=== PATIENT | female | born 1990 | race Caucasian/White ===

== ENCOUNTER 2024-06-10 20:14 | Emergency (ER) | payer BC, SELFPAY ==
[2024-06-10] VITALS (20 sets, daily range): BP systolic 122–150; BP diastolic 76–117; PULSE 100–142; RESP 12–29; TEMP 36.6; O2SAT 96–100
--- NOTE | ~2024-06-10 | CT_ITS ---
CTA chest PE protocol Ordering provider: Rohan Kidd MD History: 33 years Female with . Pleuritic chest pain, recent trauma, eval pe . Comparison: None. Technique: CT angiogram chest was performed following timed intravenous injection of contrast. Thin s lice axial images and reformatted coronal images were obtained. Three dimensional reformatted images of the chest were also obtained using a [employer] workstation. . Automated exposure control and iterati ve reconstruction technique were employed. The dose-length product was 180.72 mGy-cm. Findings: PULMONARY ARTERIES: No pulmonary embolus. VISUALIZED THORACIC INLET: Normal. MEDIASTINUM: Aorta/coronary arteries: The thoracic aorta is normal. Heart/other: The heart is not enlarged. Lymph nodes: No mediastinal or hilar adenopathy. LUNGS: No pulmonary nodules or masses. No infiltrates or effusions. No pneumothorax. Mild dependent atelecta tic changes. VISUALIZED UPPER ABDOMEN: Slightly prominent left adrenal gland medial limb. Otherwise, the visualize d upper abdomen is normal. MUSCULOSKELETAL: Soft tissues: The superficial soft tissues are normal. Bones: Normal spine. IMPRESSION: 1. No pulmonary embolism. 2. No acute cardiopulmonary pathology. Reviewed, dictated and finalized at location A.
--- NOTE | ~2024-06-10 | XR_ITS ---
XR chest 2V Ordering provider: Rohan Kidd History: 33 years Female with . TACHYCARDIA . Comparison: None. FINDINGS: MEDIASTINUM: The cardiac silhouette is not enlarged. LUNGS: No infiltrates, effusions or pneumothorax. OTHER: No free air under the diaphragm. IMPRESSION: No acute cardiopulmonary pathology. Reviewed, dictated and finalized at location A.
--- NOTE | 2024-06-10 20:22 | ECG_ITS ---
Test Date: 2024-06-10 20:26:02 Measurements Intervals [place] Rate: 122 P: 60 [place]: 124 QRS: 45 QRSD: 86 T: -23 QT: 288 QTc: 411 Interpretive Statements SINUS TACHYCARDIA NONSPECIFIC ST & T-WAVE ABNORMALITY- ANTEROLAT/INF LEADS ABNORMAL ECG No previous ECG available for comparison Electronically Signed On 06-11-2024 07:26:06 CDT by Bharat Mckay D.O.
[2024-06-10 20:33] LABS: Basophils Absolute Auto 0.1 K/mm3 (0.0-0.1); Basophils Percent Auto 0.9 % (0.2-1.2); Eosinophils Absolute Auto 0.1 K/mm3 (0-0.3); Eosinophils Percent Auto 1.2 % (0-4.4); Hemoglobin 14.8 g/dL (12.0-15.0); Immature Granulocyte Absolute 0.05 K/mm3 (0.00-0.031); Immature Granulocyte Percent A 0.7 % (0-0.5); Lymphocytes Absolute Auto 2.93 K/mm3 (0.9-3.2); Lymphocytes Percent Auto 42.6 % (18.3-44.2); Mean Corpuscular HGB Conc 34.4 g/dl (32-36); Mean Corpuscular Hemoglobin 32.7 pg (26-34); Mean Corpuscular Volume 95.1 fl (80-100); Mean Platelet Volume 9.5 fl (7.4-10.4); Monocytes Absolute Auto 0.6 K/mm3 (0.1-0.6); Monocytes Percent Auto 8.9 % (2.6-8.5); Neutrophils Absolute Auto 3.2 K/mm3 (1.3-6.7); Neutrophils Percent Auto 45.7 % (45.5-73.1); Platelet Count Result 267 k/mm3 (150-375); Red Blood Count 4.52 M/mm3 (4.2-5.4); Red Cell Distribution Width 12.9 % (11.5-14.5); White Blood Count 6.9 K/mm3 (4.5-10.0)
[2024-06-10] MEDS: ASPIRIN 81 MG CHEWABLE TABLET 324 MG PO (20:41)
[2024-06-10 20:44] LABS: Alanine Aminotransferase 26 U/L (6-35); Albumin Level 4.8 g/dL (3.5-5.1); Alkaline Phosphatase 59 U/L (38-126); Anion Gap 15 mmol/L (4-12); Aspartate Amino Transferase 55 U/L (14-36); Bilirubin,Total 0.5 mg/dL (0.2-1.3); Blood Urea Nitrogen 17 mg/dL (7-17); Calcium 8.3 mg/dL (8.4-10.2); Carbon Dioxide 21 mmol/L (22-30); Chloride 109 mmol/L (98-107); Estimated Glomerular Filt Rate > 60; Glucose 106 mg/dL (65-110); Lipase 102 U/L (23-300); Potassium 3.9 mmol/L (3.4-5.0); Sodium 145 mmol/L (137-145)
[2024-06-10 20:50] LABS: INR 1.1; Partial Thromboplastin Time 27.9 Seconds (22.3-36.8); Prothrombin Time 14.5 Seconds (11.1-14.7)
[2024-06-10 20:55] LABS: Troponin I < 0.012 ng/mL (0.000-0.034)
[2024-06-10] MEDS: MORPHINE SULFATE (*CRX) 4 MG/ML INJ IV PUSH (21:10)
--- OUTSIDE RECORDS SUMMARY | 2024-06-10 21:50 | XMS_ITS | Clinical Summary ---
Author Organization [facility] Address [address] [place] [address] Care Team Providers Care Travel Pta Name Role Phone Angel Moyer MD Primary Care Provider [phone] Allergies Active Allergy Reactions Criticality Noted Date Comments Amoxicillin-Pot Clavulanate Rash 06/17/2016 Sulfamethoxazole-Trimet hoprim Swelling High 12/03/2021 Clindamycin 02/21/2015 Erythromycin 02/21/2015 Bupropion Hcl Other (See Comments) 12/03/2021 Unclear syncope vs seizure- either way reports not to take Medications alprazolam (XANAX) 0.5 MG tablet Take 1 mg by mouth as needed for anxiety. Active dextroamphetamin e-amphetamine 30 mg tab Take 30 mg by mouth as needed. Active gabapentin (NEURONTIN) 100 MG capsule Take 100 mg by mouth as needed. Active norethindrone-et hinyl estradiol (FEMHRT 03/05) 1-5 mg-mcg tab Take by mouth daily. 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 Anxiety 02/04/2019 Loss of consciousness 02/21/2015 Resolved Problems Problem Noted Date Diagnosed Date Resolved Date Seizure 02/22/2015 12/03/2021 Immunizations Name Administration Dates Next Due Tdap (ADACEL/BOOSTRIX) 02/04/2019,12/15/2011 Family History Medical History Relation Comments Prostate cancer Father Arthritis Mother Thyroid disease Mother Relation Status Comments Father Mother Social History Tobacco Use Types Packs/Day Years Used Date Smoking Tobacco: Never Smokeless Tobacco: Never Tobacco Cessation:Counseling Given: Not Answered Alcohol Use Standard Drinks/Week Comments Yes 7 (1 standard drink = 0.6 oz pur e alcohol) 7 white claws a week Comments No Sex and Gender Information Value Date Recorded Sex Assigned at Not on file 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 Gender Identity Not on file Sexual Orientation Not on file Last Filed Vital Signs Vital Sign Reading Time Taken Comments Blood Pressure 110/82 12/03/2021 9:32 AM CDT Pulse 90 12/03/2021 9:32 AM CDT Temperature 36.9 C (98.5 F) 12/03/2021 9:32 AM CDT Respiratory Rate 18 02/23/2015 11: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 Oxygen Saturation 97% 12/03/2021 9:32 AM CDT Inhaled Oxygen Concentration - - Weight 65.3 kg (144 lb) 12/03/2021 9:32 AM CDT Height 151.1 cm (4' 11.5 ) 12/03/2021 9:32 AM CD T Body Mass Index 28.6 12/03/2021 9:32 AM CDT Plan of Treatment Health Maintenance Due Date Last Done Comments Annual Preventative Exam wit h Gyne 2004 Hepatitis C Screening 2006 Hepatitis B Vaccines (1 of 3 - 19+ 3-dose series) 09/24/2007 Pap Smear 03/01/2021 03/01/2018 Annual Wellness Exam with PC P (Rolling Yr) 12/03/2022 12/03/2021 Influenza Vaccine (#1) 2023 COVID-19 Vaccine (3 - 2023-2 5 season) 2023 07/29/2020, 07/05/2020 DTaP,Tdap,and Td Vaccines (3 - Td or Tdap) 02/04/2029 02/04/2019, 12/15/2011 Hepatitis A Vaccines Aged Out No long er eligible based on patient's age to complete this topic Meningococcal Vaccine Aged Out No ty mario eligible based on patient's age to complete this topic Pneumococcal Vaccine: Peds (0-5 Yrs) or At-Risk Patients (6-49 Yrs) Aged Out No longer eligible b ased on patient's age to complete this topic Care Teams Travel Pta Relationship Specialty Start Date End Date Angel Moyer MD PCP - General 12/11/14
--- OUTSIDE RECORDS SUMMARY | 2024-06-10 21:51 | XMS_ITS ---
Author Organization [facility] Address [address] [place], [place] [id number] Care Team Providers Care Shank Taper Name Role Phone Eder MATT, Dr Floyd Primary Care Provider Un available Perry Suárez Unavailable [phone] REASON FOR VISIT lump on her right lower leg Encounters Encounter Location Date Provider Diagnosis [facility] [address] [address] [place] [facility] [place], [place] [address] [id number] 12/20/2023 Perry Suárez Plan Of Treatment No Information Progress Notes * Nia RAEB:[birth year] (33 yo F)Acc No.[id number]:12/20/2023 Progress Notes Patient: Barbi MATA Provider: Hina Suárez MD :1990 A ge:33 Y S ex:Female Date:12/20/2023 Address:[address] [place] [address], [address] Pcp:Dr Everett Gaines MD Subjective: * Chief Complaints: * 1 . Lump on her right lower leg. * Medical History: Objective: * Vitals: Assessment: Plan: * Treatment: * * Electronic signature of Jarod Suárez MD on 06/10/2024 at 09:50 PM CDT Sign off status: Pending * Provider: Hina Suárez MD Date: 1 Generated for Rashmi charles/Faxing/eTransmitting on: 0 06/10/2024 09:50 PM CDT
--- OUTSIDE RECORDS SUMMARY | 2024-06-10 21:51 | XMS_ITS | Patient Health Record ---
Author Organization [facility] Address [address] [place], [place] [id number] Care Team Providers Care Smoke Chaser Name Role Phone Eder MATT, Dr Floyd Primary Care Provider Un available Perry Suárez Unavailable [phone] Results Component Value Reference Range Notes Pathology Report Reviewed date:01/26/2024 04:36:14 PM Interpretation: Performing Lab:[facility], [address] [place] [id number], Phone - [phone], Director - Erasmo Notes/Report: Clinical Information:[id number] . Material submitted: . limb - RIGHT LOWER LIMB MASS. Modifiers: right, lower . Clinician provided ICD-10: R22.41 . Clinical history: . PATHOLOGY OF MASS OF RIGHT LOWER LIMB. . Diagnosis: ENCAPSULED FAT NECROSIS. BXS 01/07/2024 1043 Local . Electronically signed: . Luis Cortes MD, Dermatopathologist . Gross description: . 1 Container, formalin-filled, labeled with patient identification. RIGHT LOWER LIMB MASS: RECEIVED IN FORMALIN IS 1 PIECE OF ADIPOSE TISSUE MEASURING 1.2 X 0.8 X 1.1 CM. PARTIALLY CONTAINED IN A WHITE SAC. THE CUT SURFACE IS JIMENEZ-YELLOW SMOOTH AND HOMOGENOUSTHERE ARE NO LESIONS GROSSLY VISIBLE . IT IS SUBMITTED ENTIRELY IN CASSETTE A1.THERE ARE 4 PIECES. ORT/ORT 01/05/2024 1112 Local . Pathologist provided ICD-10: L98.8 . CPT . 303793 Reason For Referral No Information Social History Tobacco Use: Social History Observation Description Date Details (start date - stop date) Never Smoker NA - NA Tobacco Control (Standard) Question Answer Notes Tobacco use: Nonsmoker Problems Problem Type SNOMED Code ICD Code Onset Dates Problem Status W/U Status Risk Notes Problem Localized swelling, mass and lump, right lower limb (R22.41) Active confirmed Vital Signs Heart Rate 78 /min 12/21/2023 Temperature 97.3 degrees Fahrenheit 12/21/2023 Height-cm 149.86 cm 12/21/2023 Oximetry 98 % 12/21/2023 Blood pressure diastolic 77 mm Hg 12/21/2023 Weight-kg 58.97 kg 12/21/2023 Height 4'11 in 12/21/2023 Blood pressure systolic 128 mm Hg 12/21/2023 Weight 130 lbs 12/21/2023 BMI 26.25 kg/m2 12/21/2023 Encounters Encounter Location Date Provider Diagnosis [facility] [address], [address] [place], [place] [id number] 12/21/2023 Perry Suárez Localized swelling, mass and lump, right lower limb R22.41 [facility] [address] [place], [place] [id number] 01/04/2024 Perry Suárez Localized swelling, mass and lump, right lower limb R22.41 Assessments Encounter Date Diagnosis (ICD Code) Assessment Notes Treatment Notes Treatment Clinical Notes Section Notes 12/21/2023 Localized swelling, mass and lump, right lower limb (ICD-10 - R22.41) we will plan excisional biopsy under local anesthesia in the office. Patient understands and agrees. Clinically not very concerning on exam 01/04/2024 Localized swelling, mass and lump, right lower limb (ICD-10 - R22.41) Plan Of Treatment No Information Insurance Providers Payer Name Payer Address Payer Phone Subscriber Number Group Number Insured Name Patient Relationship to Insured Coverage Start Date Coverage End Date [facility] [address] [place] [address] [id number] Barbi Rae Self - patient is the insured
--- OUTSIDE RECORDS SUMMARY | 2024-06-10 21:51 | XMS_ITS ---
Author Organization [facility] Address [address] [place], [place] [phone] Care Team Providers Care Sed Middle School Teacher Name Role Phone Eder MATT, Dr Floyd Primary Care Provider Un available Perry Suárez Unavailable [phone] REASON FOR VISIT Lump on lower right thigh Social History Tobacco Use: Social History Observation Description Date Details (start date - stop date) Never Smoker NA - NA Tobacco Control (Standard) Question Answer Notes Tobacco use: Nonsmoker Problems Problem Type SNOMED Code ICD Code Onset Dates Problem Status W/U Status Risk Notes Problem Localized swelling, mass and lump, right lower limb (R22.41) Active confirmed Vital Signs Temperature 97.3 degrees Fahrenheit 12/21/19 24 Blood pressure systolic 128 mm Hg 12/21/19 24 Blood pressure diastolic 77 mm Hg 024 Heart Rate 78 /min 12/21/2023 Height 4'11 in 12/21/2023 Weight 130 lbs 12/21/2023 BMI 26.25 kg/m2 12/21/2023 Oximetry 98 % 12/21/2023 Height-cm 149.86 cm 12/21/2023 Weight-kg 58.97 kg 12/21/2023 Encounters Encounter Location Date Provider [facility] [address] [address], [address] [place], [place] [id number] 12/21/2023 Perry Suárez Localized swelling, mass and lump, right lower limb R22.41 Assessments Encounter Date Diagnosis (ICD Code) Assessment Notes Treatment Notes Treatment Clinical Notes Section Notes 12/21/2023 Localized swelling, mass and lump, right lower limb (ICD-10 - R22.41) we will plan excisional biopsy under local anesthesia in the office. Patient understands and agrees. Clinically not very concerning on exam Plan Of Treatment Treatment Notes Assessment Notes Localized swelling, mass and lump, right lower limb we will plan excisional biopsy under loc al anesthesia in the office. Patient understands and agrees. Progress Notes * Nery RAEaDOB:[birth year] (33 yo F)Acc No.[id number]:12/21/2023 Progress Notes Patient: Barbi MATA Provider: Hina Suárez MD :1990 A ge:33 Y S ex:Female Date:12/21/2023 Address:[address] [place] [address], [place] [address] Pcp:Dr Everett Gaines MD Subjective: * Chief Complaints: * L ump on lower right thigh * HPI: . : [age]-year-old female whose mother had non-Hodgkin's lymphoma and had developed a potential blood dyscrasia prompting a visit to a technical services consultant who then informed her and instructed her to monitor her body for any new lumps or bumps. She became greatly concerned when she noted a small lump on the outer aspect of her distal right thigh. It is nontender. She is uncertain of how long it has been there for. * ROS: E ye: Negative Ear/Nose/Mouth/Throat: Negative Respiratory: No shortness of breath or cough Cardiovascular: Negative Immunologic: Negative Hematology/Lymphatics: Negative Musculoskeletal: Negative Integumentary: Negative Genitourinary: Negative Neurologic: Negative Psychiatric: Negative Breast: Negative. * Medical History: * Surgical History: * Hospitalization/Major Diagno stic Procedure: * Social History: T obacco Use: T obacco Control (Standard) T obacco use: N onsmoker. * Medications: Objective: * Vitals: T emp:97.3, HR:78, BP:128/77, Ht:4'11 , Wt:130, BMI:26.25, Oxygen sat %:98, Ht-cm: 149.86, Wt-k.97. * Examination: G eneral Examination: GENERAL APPEARANCE: i n no acute distress, well developed, well nourished. NECK/THYROID: n case supple, full range of motion, no cervical lymphadenopathy. LUNGS: c lear to auscultation bilaterally. HEART: n o murmurs, regular rate and rhythm, S1, S2 normal.? ABDOMEN s oft, nontender, nondistended. SKIN: n o suspicious lesions, warm and dry. EXTREMITIES: n o clubbing, cyanosis, or edema; S mall sub 1 cm mobile and nontender soft tissue mass in the distal aspect of her lateral right thigh. It is not in an area typical for a lymph node.. HEAD: n ormocephalic, atraumatic. ORAL CAVITY: m ucosa moist. THROAT: c lear. NEUROLOGIC: n onfocal, motor strength normal upper and lower extremities, sensory exam intact. EYES: p upils equal, round, reactive to light and accommodation. EARS: n ormal. Assessment: * Assessment: 1. L ocalized swelling, mass and lump, right lower limb - R22.41 (Primary) Clinically not very concerning on exam Plan: * Treatment: * Procedure Codes: * Preventive Medicine: Counseling: A dvanced Care Planning D ate of last Advance Care Plannin . * * Sign off status: Completed true * Provider: Hina Suárez MD Date: Generated for Rashmi charles/Adina/Jesiitting on: 0 06/10/2024 09:50 PM CDT History and Physical Notes * HPI (History of Present Illness) Category Sub-Category Detail Notes Category Not es . 33-year-old fem natanael whose mother had non-Hodgkin's lymphoma and had developed a potential blood dyscrasia prompting a visit to a technical services consultant who then informed her and instructed her to monitor her body for any new lumps or bumps. She became greatly concerned when she noted a small lump on the outer aspect of her distal right thigh. It is nontender. She is uncertain of how long it has been there for. Examination Category Sub-Category Detail Notes Category Not es General Examination GENERAL APPEARANCE: in no ac makah distress, well developed, well nourished HEAD: normocephalic, atrau matic EYES: pupils equal, round, reactive to light and accommodation EARS: normal THROAT: clear NECK/THYROID: neck supple, full ra nge of motion, no cervical lymphadenopathy HEART: no murmurs, regular rate and rhythm, S1, S2 normal LUNGS: clear to auscultatio n bilaterally ABDOMEN soft, nontender, non distended NEUROLOGIC: nonfocal, motor stre ngth normal upper and lower extremities, sensory exam intact SKIN: no suspicious lesion s, warm and dry EXTREMITIES: no clubbing, cyanosi s, or edema; Small sub 1 cm mobile and nontender soft tissue mass in the distal aspect of her lateral right thigh. It is not in an area typical for a lymph node. ORAL CAVITY: mucosa moist
--- OUTSIDE RECORDS SUMMARY | 2024-06-10 21:51 | XMS_ITS | Encounter Summary ---
Author Organization [facility] Address [address] [place] [address] Care Team Providers Care Vegetable Grader Name Role Phone Unavailable Primary Care Provider Unavailabl e Source Comments In the event that this is information that is protected by federal Confidentiality of Substance User Disorder Patient Records, 42 CFR Part 2 prohibits the unauthorized disclosure of these records.[facility] Encounter Details Date Type Department Care Team (Late st Contact Info) Description 08/14/2013 Orders Only [place] Pathology [address] [place] [address] Angel Moyer MD [address] [facility] [address] [place], [place] [id number] Social History Tobacco Use Types Packs/Day Years Used Date Smoking Tobacco: Never Assessed Comments Unknown Sex and Gender Information Value Date Recorded Sex Assigned at Not on file Legal Sex Female 6:50 AM CDT Gender Identity Not on file Sexual Orientation Not on file documented as of this encounter Plan of Treatment Not on file documented as of this encounter Visit Diagnoses Not on filedocumented in this encounter
--- OUTSIDE RECORDS SUMMARY | 2024-06-10 21:51 | XMS_ITS | Clinical Summary ---
Author Organization [facility] Address [address] [place] [address] Care Team Providers Care Senior Mechanical Engineer Name Role Phone Unavailable Primary Care Provider Unavailabl e Source Comments In the event that this is information that is protected by federal Confidentiality of Substance UseDisorder Patient Records, 42 CFR Part 2 prohibits the unauthorized disclosure of these records.[facility] Social History Tobacco Use Types Packs/Day Years Used Date Smoking Tobacco: Never Assessed Comments Unknown Sex and Gender Information Value Date Recorded Sex Assigned at Not on file Legal Sex Female 6:50 AM CDT Gender Identity Not on file Sexual Orientation Not on file Plan of Treatment Health Maintenance Due Date Last Done Comments HIV SCREENING 09/24/2003 HEPATITIS C SCREENING 2006 LIPID TESTING 2006 DTAP/TDAP/TD (1 - Tdap) 09/24/2007 CERVICAL CANCER SCREENING 2009 Diabetes Screening 09/24/2023 COVID-19 VACCINE ( - 2023-2 5 season) 2023 INFLUENZA (Season Ended) 2024 MENINGOCOCCAL B (MENB) Aged Out No lo nger eligible based on patient's age to complete this topic Pneumococcal 0-49 Aged Out No longer eligible based on patient's age to complete this topic
--- OUTSIDE RECORDS SUMMARY | 2024-06-10 21:51 | XMS_ITS | Clinical Summary ---
Author Organization [facility] Address [address] [place] [address] Care Team Providers Care Sap Fico Architect Name Role Phone Physician, No Pcp MD Primary Care Provider Unava ilable Allergies Active Allergy Reactions Criticality Noted Date Comments Amoxicillin-Pot Clavulanate Rash 06/18/19 17 Bactrim Ds Swelling Medium 09/02/2022 Bupropion Other 12/03/2021 Unclear syncope vs seizure- either way reports not to take Clindamycin Rash 02/21/2015 Sulfamethoxazole W/Trimethoprim Swelling High 04/27/2020 Medications Amphetamine-Dex troamphetamine (ADDERAL) 30 MG PO Tab Take 1 Tab by mouth two times per day. 1 Active ALPRAZolam 1 MG PO Tab Take 1 Tab by mouth twice daily as needed. 1 Active Folic acid (FOLATE) 1 MG PO TabIndications: ETOH abuse Take 1 Tab by mouth once per day. 30 Tab 5 Active levETIRAcetam 500 MG PO TabIndications: Seizure (HCC) Take 1 Tab by mouth two times per day. 180 Tab 5 07/16/19 26 Active Multivitamin (TAB-A-OLIMPIA) PO TabIndications: ETOH abuse Take 1 Tab by mouth once per day. 30 Tab 5 Active NaCl 0.65% (OCEAN) 0.65 % NA SolutionIndicat ions:Nasal Mucosa Irritation Place 1 Bertrand in the nose three times per day as needed for For Nasal Congestion. Indications: Irritation of the Inside of the Nose 1 Each 5 Active Thiamine (VITAMIN B-1) 100 MG PO TabIndications: ETOH abuse Take 1 Tab by mouth once per day. 30 Tab 5 Active Gabapentin (NEURONTIN) 600 MG PO Tab Take 1 Tab by mouth two times per day with meals. 4 Active ClonAZEPAM, Klonopin, 2 MG PO Tab TAKE 1 TABLET BY MOUTH EVERY NIGHT AT BEDTIME. CONTINUE ALPRAZOLAM 5 Active Chlorhexidine (PERIDEX) 0.12 % MT Solution 5 Active ETHIN ESTRADIOL-NORET HIND LEFTY 1-5 MG-MCG PO Tab Take by mouth. 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 Loss of consciousness 02/21/2015 Encounters Date Type Department Care Team Description 05/12/2024 9:00 AM CDT Office Visit Neurology [address] [phone] Lucie Choi MD Provoked seizure (HCC) (Primary Dx) Discharge Disposition: Home or Self Care 05/12/2024 [facility] d Advice Neurology [facility] [place] [address] [place] [address] [address] [place] [address] Lucie Choi MD Letter 04/18/2024 10:46 PM ASSISTANT MANAGER BILINGUAL - 04/21/2024 12:09 PM ASSISTANT MANAGER BILINGUAL Hospital Encounter [facility] [address] [address] Aníbal Hobbs MD Alanis, MD Alva Santiago Gaurangi, Seizure (HCC) (Primary Dx); ETOH abuse; Attention deficit hyperactivity disorder (ADHD), unspecified ADHD type; Hypokalemia; Non-seasonal allergic rhinitis, unspecified trigger; Closed fracture of nasal bone, initial encounter; Hepatic steatosis Discharge Disposition: Home or Self Care from Last 3 Months Social History Tobacco Use Types Packs/Day Years Used Date Smoking Tobacco: Never Smokeless Tobacco: Never Alcohol Use Standard Drinks/Week Comments Yes 5 (1 standard drink = 0.6 oz pur e alcohol) 5 shots 3-4 times per week NCSS - Food Insecurity Answer Date Charles rded Within the past 12 months, d id you worry that your food would run out before you got money to buy more? No 04/19/2024 Within the past 12 months, d id the food you bought just not last and you didn t have money to get more? No 04/19/2024 NCSS - Housing/Utilities Answer Date Re corded Do you have housing? Yes 04/19/2024 Are you worried about losing your housing? Yes 04/19/2024 Within the past 12 months, h ave you or your family members you live with been unable to get utilities (heat, electricity) when it was really needed? No 04/19/2024 NCSS - Transportation Answer Date Recor ded Within the past 12 months, h as lack of transportation kept you from medical appointments, getting your medicines, non-medical meetings or appointments, work, or from getting things that you need? No 04/19/2024 NCSS - Interpersonal Safety Answer Date Recorded Do you feel physically and e motionally safe where you currently live? Yes 04/19/2024 Within the past 12 months, h ave you been hit, slapped, kicked or otherwise physically hurt by someone? No 04/19/2024 Within the past 12 months, h ave you been humiliated or emotionally abused in other ways by your partner or ex-partner? No 04/19/2024 NCSS - Utilities Answer Date Recorded Within the past 12 months, h ave you or your family members you live with been unable to get utilities (heat, electricity) when it was really needed? No 04/19/2024 Interpersonal Safety Answer Date Record ed Do you feel physically or em otionally unsafe where you currently live? No 04/19/2024 Is there someone in your lif e who physically hurts, threatens, humiliates, or scares you? No 04/19/2024 Is anyone misusing your sergey y, food, housing, and/or not allowing you to get medical treatment? No 04/19/2024 Comments Unknown Sex and Gender Information Value Date Recorded Sex Assigned at Not on file Legal Sex Female 9:25 AM ASSISTANT MANAGER BILINGUAL Gender Identity Not on file Sexual Orientation Not on file Last Filed Vital Signs Vital Sign Reading Time Taken Comments Blood Pressure 104/77 05/12/2024 8:59 AM CDT Pulse 73 05/12/2024 8:59 AM CDT Temperature 36.8 C (98.2 F) 05/12/2024 8:59 AM CDT Respiratory Rate 17 05/12/2024 8:59 AM CDT Oxygen Saturation 99% 05/12/2024 8:59 AM CDT Inhaled Oxygen Concentration - - Weight 60.8 kg (134 lb) 05/12/2024 8:59 AM CDT Height 149.9 cm (4' 11 ) 05/12/2024 8:59 AM CDT Body Mass Index 27.06 05/12/2024 8:59 AM CDT Plan of Treatment Health Maintenance Due Date Last Done Comments Physical 2006 PAP SMEAR 2009 CHOLESTEROL SCREENING 09/24/2023 HPV VACCINE (2 - 3-dose SCDM series) 10/07/2023 09/09/2023 COVID-19 Vaccine (3 - 2023- season) 2023 07/29/2020, 07/05/2020 FLU VACCINE (#1) 10/31/2023 DTaP/Tdap/Td Vaccines (4 - Td or Tdap) 04/24/2034 04/24/2024, 02/04/2019, 12/15/2011 Pneumococcal: Pediatric/ High Risk Adult 18-64 Aged Out No longer eligible based on patient's age to complete this topic Procedures Procedure Name Priority Date/Time Associated Diagnosis Comments ADD-ON TEST (SPECIMEN IN LAB) Routine Lab 04/21/2024 9:31 AM ASSISTANT MANAGER BILINGUAL ADD-ON TEST (SPECIMEN IN LAB) Routine Lab 04/21/2024 7:44 AM ASSISTANT MANAGER BILINGUAL HB PHOSPHORUS * Routine 04/21/2024 6:06 AM ASSISTANT MANAGER BILINGUAL HB MAGNESIUM * Routine 04/21/2024 6:06 AM ASSISTANT MANAGER BILINGUAL HB HEPATIC FUNCTION PANEL* Routine 04/21/2024 6:06 AM ASSISTANT MANAGER BILINGUAL HB CBC/PLATELET* (P) Routine 04/21/2024 6:06 AM ASSISTANT MANAGER BILINGUAL HB BASIC METABOLIC PANEL* (P) Routine 04/21/2024 6:06 AM ASSISTANT MANAGER BILINGUAL NSG NUTRITION ADMISSION SCREEN Routine 04/20/2024 3:50 PM ASSISTANT MANAGER BILINGUAL US ABDOMEN LTD (LIVER/GB/DUCT/SPLEEN /PANCREAS) Routine 04/20/2024 8:31 AM ASSISTANT MANAGER BILINGUAL HB PHOSPHORUS * Routine 04/20/2024 6:57 AM ASSISTANT MANAGER BILINGUAL HB MAGNESIUM * Routine 04/20/2024 6:57 AM ASSISTANT MANAGER BILINGUAL HB CBC/PLATELET* (P) Routine 04/20/2024 6:57 AM ASSISTANT MANAGER BILINGUAL HB BASIC METABOLIC PANEL* (P) Routine 04/20/2024 6:57 AM ASSISTANT MANAGER BILINGUAL EXTRA BORIC ACID TUBE Routine 04/19/2024 10:38 PM ASSISTANT MANAGER BILINGUAL HB UA AUTO W/MICROSCOPIC* Routine 04/19/2024 10:27 PM ASSISTANT MANAGER BILINGUAL URINALYSIS Routine 04/19/2024 10:27 PM ASSISTANT MANAGER BILINGUAL ORDER EEG Routine 04/19/2024 2:56 PM ASSISTANT MANAGER BILINGUAL ADD-ON TEST (SPECIMEN IN LAB) ER-STAT 04/19/2024 11:15 AM ASSISTANT MANAGER BILINGUAL EXTRA BLUE TUBE 1 STAT 04/19/2024 10: 33 AM ASSISTANT MANAGER BILINGUAL EXTRA SST TUBE 1 STAT 04/19/2024 10:3 3 AM ASSISTANT MANAGER BILINGUAL HB MAGNESIUM * STAT 04/19/2024 10:33 AM ASSISTANT MANAGER BILINGUAL HB CBC/PLATELET* (P) STAT 04/19/2024 10:33 AM ASSISTANT MANAGER BILINGUAL HB COMPREHENSIVE METABOLIC PANEL* STAT 04/19/2024 10:33 AM ASSISTANT MANAGER BILINGUAL MRI BRAIN W & W/O CONTRAST ER-STAT 04/19/2024 9:01 AM ASSISTANT MANAGER BILINGUAL ADD-ON TEST (SPECIMEN IN LAB) ER-STAT 04/19/2024 5:37 AM ASSISTANT MANAGER BILINGUAL HB URINE DRUG ABUSE PNL 8 STAT 04/19/2024 2:50 AM ASSISTANT MANAGER BILINGUAL EXTRA OTHER/MISC SPECIMEN 2 STAT 04/19/2024 2:50 AM ASSISTANT MANAGER BILINGUAL EXTRA BORIC ACID TUBE STAT 04/19/2024 2:50 AM ASSISTANT MANAGER BILINGUAL EXTRA OTHER/MISC SPECIMEN 1 STAT 04/19/2024 2:50 [address] MAXILLOFACIAL W/O CONTRAST ER-STAT 04/19/2024 12:16 AM [address]ILINGUAL CT CERVICAL SPINE W/O CONTRAST ER-STAT 04/19/2024 12:16 AM ASSISTANT MANAGER BILINGUAL CT HEAD W/O CONTRAST ER-STAT 04/19/2024 12:16 AM ASSISTANT MANAGER BILINGUAL HB LACTIC ACID/LACTATE* STAT 04/19/2024 12:02 AM ASSISTANT MANAGER BILINGUAL ADD-ON TEST (SPECIMEN IN LAB) ER-STAT 04/18/2024 11:24 PM ASSISTANT MANAGER BILINGUAL HB ACETAMINOPHEN/TYLENOL ASSAY* STAT 04/18/2024 11:18 PM ASSISTANT MANAGER BILINGUAL HB SALICYLATE ASSAY* STAT 04/18/2024 11:18 PM ASSISTANT MANAGER BILINGUAL EXTRA SST TUBE 1 STAT 04/18/2024 11:1 8 PM ASSISTANT MANAGER BILINGUAL HB TROPONIN T STAT 04/18/2024 11:18 PM ASSISTANT MANAGER BILINGUAL HB BETA-HCG QUANT.* (P) STAT 04/18/2024 11:18 PM ASSISTANT MANAGER BILINGUAL HB PHOSPHORUS * STAT 04/18/2024 11:18 PM ASSISTANT MANAGER BILINGUAL HB MAGNESIUM * STAT 04/18/2024 11:18 PM ASSISTANT MANAGER BILINGUAL HB COMPREHENSIVE METABOLIC PANEL* STAT 04/18/2024 11:18 PM ASSISTANT MANAGER BILINGUAL ADD-ON TEST (SPECIMEN IN LAB) ER-STAT 04/18/2024 11:17 PM ASSISTANT MANAGER BILINGUAL EXTRA BLUE TUBE 1 STAT 04/18/2024 11: 17 PM ASSISTANT MANAGER BILINGUAL HB BLOOD SMEAR W/MAN DIFF WBC CT (P) STAT 04/18/2024 11:17 PM ASSISTANT MANAGER BILINGUAL HB SARS-COV-2 INFL A&B MULT AMP PRB TCHNQ STAT 04/18/2024 11:14 PM ASSISTANT MANAGER BILINGUAL HB BLOOD GAS,VENOUS* STAT 04/18/2024 11:11 PM ASSISTANT MANAGER BILINGUAL ORDER ROUTINE EKG Routine 04/18/2024 10: 52 PM ASSISTANT MANAGER BILINGUAL from Last 3 Months Results * (ABNORMAL) HEPATIC GROUP, BL (04/21/2024 6:06 AM ASSISTANT MANAGER BILINGUAL) TOTAL PROTEIN 5.4(L) 6.0 - 8.3 g/dL [facility] ALBUMIN 3.4(L) 3.5 - 5.2 g/dL [facility] BILIRUBIN TOTAL 0.6 0.0 - 1.2 mg/dL [facility] BILIRUBIN DIRECT 0.3 0.0 - 0.4 mg/dL [facility] ALK PHOSPHATASE 73 35 - 104 U/L [facility] SGOT 71(H) 0 - 35 U/L [facility] SGPT 22 0 - 35 U/L [facility] 04/21/2024 6:06 AM ASSISTANT MANAGER BILINGUAL 04/21/2024 6:27 AM ASSISTANT MANAGER BILINGUAL us Heather Hutchinson INTERNET MARKETING STRATEGIST-COMPASS OPERATOR LAB BLOOD Final Res ult Performing Organization Address [facility]/ZIP Co de Phone Number [facility] [address] [place] [address] * (ABNORMAL) CBC W/O DIFFERENTIAL (04/21/2024 6:06 AM ASSISTANT MANAGER BILINGUAL) WBC 5.7 4.0 - 10.0 10*3/uL [facility] RBC 3.48(L) 3.90 - 5.25 10*6/uL [facility] HEMOGLOBIN 12.4 12.0 - 16.0 g/dL [facility] HCT 34.7(L) 36.0 - 48.0 % [facility] MCV 99.7(H) 81.0 - 99.0 CU Microns [facility] MCH 35.6(H) 27.0 - 33.0 pg [facility] MCHC 35.7 32.5 - 36.5 g/dL [facility] RDW 14.2 11.6 - 14.8 % [facility] PLATELET COUNT 143(L) 150 - 400 10*3/uL [facility] ABSOLUTE NUCL RBC 0.0 0.0 - 0.0 10*3/[facility] NUCLEATED RBC% 0.0 0.0 - 0.0 % [facility] 04/21/2024 6:06 AM ASSISTANT MANAGER BILINGUAL 04/21/2024 6:28 AM ASSISTANT MANAGER BILINGUAL us Heather REDDYN-COMPASS OPERATOR LAB BLOOD Final Res ult Performing Organization Address City/[facility]/ZIP Co de Phone Number [facility] [address] [place] [address] * PHOSPHORUS, BL (04/21/2024 6:06 AM ASSISTANT MANAGER BILINGUAL) PHOSPHORUS 2.8 2.5 - 4.5 mg/dL [facility] 04/21/2024 6:06 AM ASSISTANT MANAGER BILINGUAL 04/21/2024 6:27 AM ASSISTANT MANAGER BILINGUAL us Heather Hutchinson INTERNET MARKETING STRATEGIST-COMPASS OPERATOR LAB BLOOD Final Res ult Performing Organization Address [facility]/ZIP Co de Phone Number [facility] [address] [place] [address] * MAGNESIUM, BL (04/21/2024 6:06 AM ASSISTANT MANAGER BILINGUAL) MAGNESIUM 2.0 1.7 - 2.2 mg/dL [facility] 04/21/2024 6:06 AM ASSISTANT MANAGER BILINGUAL 04/21/2024 6:27 AM ASSISTANT MANAGER BILINGUAL us Heather Hutchinson APN-COMPASS OPERATOR LAB BLOOD Final Res ult Performing Organization Address [facility] de Phone Number [facility] [address] [place] [address] * (ABNORMAL) BASIC METABOLIC PANEL, BL (04/21/2024 6:06 AM ASSISTANT MANAGER BILINGUAL) GLUCOSE 102(H) 60 - 99 mg/dL [facility] SODIUM 141 133 - 145 meq/L [facility] POTASSIUM 3.5 3.5 - 5.3 meq/L [facility] CHLORIDE 108 98 - 108 meq/L [facility] CO2 23 22 - 29 meq/L [facility] ANION GAP 14 10 - 20 meq/L [facility] BUN 4(L) 6 - 20 mg/dL [facility] CREATININE, SERUM 0.5 0.5 - 0.9 mg/dL [facility] CALCIUM 8.0(L) 8.5 - 10.5 mg/dL [facility] GFR >60 [facility] Comment: Reference range for eGFR: >60 mL/min/1.73m(2) Estimated Glomerular Filtration Rate (eGFR) is calculated using the 2020 CKD-EPI creatinine equation. GFR reportable units are ml/min/1.73m(2). Note: eGFR results will not be calculated for patients <18 years old. 04/21/2024 6:06 AM ASSISTANT MANAGER BILINGUAL 04/21/2024 6:27 AM ASSISTANT MANAGER BILINGUAL us Heather Hutchinson INTERNET MARKETING STRATEGIST-COMPASS OPERATOR LAB BLOOD Final Res ult [facility] [address] [place] [address] * NSG NUTRITION ADMISSION SCREEN (04/20/2024 3:50 PM ASSISTANT MANAGER BILINGUAL) Narrative OFFICE PERFORMED LAB - 04/20/2024 3:50 PM ASSISTANT MANAGER BILINGUAL Miko Coulter 04/20/2024 3:55 PM Initial Nutrition Assessment Assessment Patient seen due to MST score >/=2. On interview, patient does not have the most balanced diet. Currently w/ multiple low lytes (being repleted). We discussed pursuing balanced and consistent nutrition intake going forward, which pt understands. Tolerating diet thus far. Will forgo oral nutrition supplement at this time and work on eating balanced meals in-house. Will reassess per protocol and/or nutrition consult. Primary Diagnosis: Seizure (HCC)No past medical history on file. Height: 4' 11 (149.9 cm) Weight: 61.2 kg (134 lb 14.7 oz)-bed scale Body mass index is 27.25 kg/m . Weight Changes: no sig findings Wt Readings from Last 5 Encounters: 04/19/24 61.2 kg (134 lb 14.7 oz) 03/10/24 59 kg (130 lb) 02/23/24 57.2 kg (126 lb) 10/11/22 65.8 kg (145 lb) 09/02/22 65.8 kg (145 lb) Diet Orders General Diet NOW Review of patient's allergies indicates: Allergen Reactions Sulfamethoxazole w/trimethoprim Swelling Bactrim ds Swelling Amoxicillin-pot clavulanate Rash Bupropion Other Unclear syncope vs seizure- either way reports not to take Clindamycin Rash Allergies/preferences Comments:N/A Intake: adequate x 1 day Bowel movement: reviwed UOP: reviewed Current Facility-Administered Medications: K-Phos No.2 (K=2.3mEq + Phos=8 mMole), 1 Tab, Oral, PC&HS, Alva, Gaurangi, DO, 1 Tab at 04/20/24 1233 ALPRAZolam Tab 1 mg, 1 mg, Oral, BIDPRN, Jasper, Heather, INTERNET MARKETING STRATEGIST-COMPASS OPERATOR, 1 mg at 04/19/24 2130 Sodium Chloride Flush Solution 10 mL (SODIUM CHLORIDE), 10 mL, Flush IV, Flush per Protocol, Jasper, Heather, INTERNET MARKETING STRATEGIST-COMPASS OPERATOR NaCl 0.65% Solution 1 Bertrand (OCEAN), 1 Bertrand, Nasal, TIDPRN, Jasper, Heather, INTERNET MARKETING STRATEGIST-COMPASS OPERATOR Acetaminophen Tab 500 mg (TYLENOL EXTRA STRENGTH), 500 mg, Oral, Q6HPRN, Jasper, Heather, INTERNET MARKETING STRATEGIST-COMPASS OPERATOR, 500 mg at 04/20/24 1536 Ondansetron Solution 4 mg (Zofran), 4 mg, Intravenous, Q6HPRN, Jasper, Heather, INTERNET MARKETING STRATEGIST-COMPASS OPERATOR LevETIRAcetam IV Push 500 mg (KEPPRA), 500 mg, Intravenous, Now then q12hr, Savannah Camarillo PA-C, 500 mg at 04/20/24 1538 D5%W + 0.45% NaCl + KCl 20 mEq Solution, , Intravenous, Infusion, Alva, Gadandregi, DO, Last Rate: 84 mL/hr at 04/20/24 0508, New Bag at 04/20/24 0508 Sodium Chloride Flush Solution 10 mL (SODIUM CHLORIDE), 10 mL, Flush IV, Flush per Protocol, Alva, Gaurangi, DO, 10 mL at 04/20/24 0914 Thiamine Tab 100 mg (VITAMIN B-1), 100 mg, Oral, Daily, Alva, Gaurangi, DO, 100 mg at 04/20/24 0900 Folic acid Tab 1 mg (FOLATE), 1 mg, Oral, Daily, Alva, Gaurangi, DO, 1 mg at 04/20/24 0900 Multivitamin Tab 1 Tab (TAB-A-OLIMPIA), 1 Tab, Oral, Daily, Alva, Gaurangi, DO, 1 Tab at 04/20/24 0900 Polyethylene Glycol Pack 17 g (MIRALAX), 1 Each, Oral, BIDPRN, Alva, Gaurangi, DO Bisacodyl Suppos 10 mg (DULCOLAX), 10 mg, Rectal, DAILY PRN, Alva, Gaurangi, DO diazePAM Tab 5-10 mg (VALIUM), 5-10 mg, Oral, Q1HPRN, Alva, Gaurangi, DO Ondansetron ODT TABLET DISPERSIBLE 4 mg (ZOFRAN ODT), 4 mg, Buccal, Q8HPRN, Alva, Gaurangi, DO BMG: Lab Results Component Value Date GLU 123 (H) 04/20/2024 NA 138 04/20/2024 K 2.9 (LL) 04/20/2024 CL 106 04/20/2024 CO2 22 04/20/2024 BUN 2 (L) 04/20/2024 CREAT 0.4 (L) 04/20/2024 GFRNONAAMDRD >60 06/17/2020 GFRAAMDRD >60 04/20/2024 CA 7.7 (L) 04/20/2024 Lab Results Component Value Date MG 1.7 04/20/2024 Lab Results Component Value Date PHOS 1.6 (L) 04/20/2024 Nutrition Risk Level: LOW Diagnosis (Nutrition) 1. New Nutrition Dx: Inadequate oral intake r/t decreased ability to consume sufficient energy AEB estimated intake from diet less than estimated nutrient requirements. Recommended Nutrition Interventions 1. Nutrition Rx: Diet Recommendations: continue current diet as ordered and medically appropriate. Goal: PO intake meeting >75% estimated nutrition needs by follow-up nutrition assessment. 2. Medical Food Supplement(s): will monitor need for oral nutrition supplement and provide as needed Goal: patient provided with appropriate oral nutrition supplement as needed 3. Collaboration of Care: encourage PO nutrition and encourage PO hydration Goal: nutrition Rx updated PRN Monitoring/Evaluation Estimated energy/protein needs, estimated fluid needs, nutrition Rx (diet advance/tolerance), medical food supplements (acceptance/tolerance), anthropometric measurements, NFPE findings, biochemical data (BMG, Mg, PO4), nutritionally relevant medications, effectiveness of prior nutrition interventions, MD plan of care Ariel Coulter MS, RDN, LDN Clinical Dietitian Pager: [phone] us Concepcion Calle DO NURSING - COMMUNICATION Final Result OFFICE PERFORMED LAB see department info below * US ABDOMEN LTD (04/20/2024 8:31 AM ASSISTANT MANAGER BILINGUAL) Anatomical Region Laterality Modality Abdomen Ultrasound 04/20/2024 8:39 AM ASSISTANT MANAGER BILINGUAL Impressions 04/20/2024 8:40 AM ASSISTANT MANAGER BILINGUAL IMPRESSION: Hepatic steatosis, otherwise unremarkable. Electronically Verified and Signed by Attending Radiologist: Dayo Toribio MD 04/20/2024 8:40 AM This exam was dictated at [facility]. Narrative 04/20/2024 8:40 AM ASSISTANT MANAGER BILINGUAL CLINICAL INDICATION: : elevated lft TECHNIQUE: Limited ultrasound exam of the abdomen. COMPARISON: 06/17/2020 FINDINGS: The liver measures 17.2 cm in length in the right mid clavicular line. The hepatic margin is smooth and the hepatic echogenicity is increased, consistent with background of steatosis. Focal fat deposition also noted near the brayden hepatis. No suspicious lesions. The gallbladder shows no evidence of stones. There is no wall thickening or pericholecystic fluid. No pain with transducer pressure. The common bile duct measures 3 mm. The spleen is normal in size. It measures 9.5 cm in greatest dimension. The head and body of the pancreas are unremarkable. The tail is obscured by intestinal gas. There is no free fluid in the upper abdomen. Procedure Note Dayo Toribio MD - 04/20/2024 CLINICAL INDICATION: : elevated lft TECHNIQUE: Limited ultrasound exam of the abdomen. COMPARISON: 06/17/2020 FINDINGS: The liver measures 17.2 cm in length in the right mid clavicular line.The hepatic margin is smooth and the hepatic echogenicity is increased,consistent with background of steatosis. Focal fat deposition also notednear the brayden hepatis. No suspicious lesions. The gallbladder shows no evidence of stones. There is no wall thickeningor pericholecystic fluid. No pain with transducer pressure. The common bile duct measures 3 mm. The spleen is normal in size. It measures 9.5 cm in greatest dimension. The head and body of the pancreas are unremarkable. The tail is obscuredby intestinal gas. There is no free fluid in the upper abdomen. IMPRESSION IMPRESSION: Hepatic steatosis, otherwise unremarkable. Electronically Verified and Signed by Attending Radiologist: Dayo Nixon 04/20/2024 8:40 AM This exam was dictated at [facility]. us Concepcion Calle DO ULTRASOUND ORDERS Final Resul t * (ABNORMAL) CBC W/O DIFFERENTIAL (04/20/2024 6:57 AM ASSISTANT MANAGER BILINGUAL) WBC 7.9 4.0 - 10.0 10*3/uL [facility] RBC 3.65(L) 3.90 - 5.25 10*6/uL [facility] HEMOGLOBIN 12.8 12.0 - 16.0 g/dL [facility] HCT 35.1(L) 36.0 - 48.0 % [facility] MCV 97.2 81.0 - 99.0 CU Microns [facility] Comment:Result double-checke d MCH 35.1(H) 27.0 - 33.0 pg [facility] MCHC 36.5 32.5 - 36.5 g/dL [facility] RDW 14.0 11.6 - 14.8 % [facility] PLATELET COUNT 135(L) 150 - 400 10*3/uL [facility] ABSOLUTE NUCL RBC 0.0 0.0 - 0.0 10*3/uL [facility] NUCLEATED RBC% 0.0 0.0 - 0.0 % [facility] 04/20/2024 6:57 AM ASSISTANT MANAGER BILINGUAL 04/20/2024 7:05 AM ASSISTANT MANAGER BILINGUAL us Heather Hutchinson INTERNET MARKETING STRATEGIST-COMPASS OPERATOR LAB BLOOD Final Res ult [facility] [address] [place] [address] * (ABNORMAL) PHOSPHORUS, BL (04/20/2024 6:57 AM ASSISTANT MANAGER BILINGUAL) PHOSPHORUS 1.6(L) 2.5 - 4.5 mg/dL [facility] 04/20/2024 6:57 AM ASSISTANT MANAGER BILINGUAL 04/20/2024 7:05 AM ASSISTANT MANAGER BILINGUAL us Heather Hutchinson INTERNET MARKETING STRATEGIST-COMPASS OPERATOR LAB BLOOD Final Res ult Performing Organization Address City/[facility]/ZIP Co de Phone Number [facility] [address] [place] [address] * MAGNESIUM, BL (04/20/2024 6:57 AM ASSISTANT MANAGER BILINGUAL) MAGNESIUM 1.7 1.7 - 2.2 mg/dL [facility] 04/20/2024 6:57 AM ASSISTANT MANAGER BILINGUAL 04/20/2024 7:05 AM ASSISTANT MANAGER BILINGUAL Heather Hutchinson INTERNET MARKETING STRATEGIST-COMPASS OPERATOR LAB BLOOD Final Res ult Performing Organization Address [facility] de Phone Number [facility] [address] [place] [address] * (ABNORMAL) BASIC METABOLIC PANEL, BL (04/20/2024 6:57 AM ASSISTANT MANAGER BILINGUAL) GLUCOSE 123(H) 60 - 99 mg/dL [facility] SODIUM 138 133 - 145 meq/L [facility] POTASSIUM 2.9(LL) 3.5 - 5.3 meq/L [facility] Comment:Critical value. CHLORIDE 106 98 - 108 meq/L [facility] CO2 22 22 - 29 meq/L [facility] ANION GAP 13 10 - 20 meq/L [facility] BUN 2(L) 6 - 20 mg/dL [facility] CREATININE, SERUM 0.4(L) 0.5 - 0.9 mg/dL [facility] CALCIUM 7.7(L) 8.5 - 10.5 mg/dL [facility] GFR >60 [facility] Comment: Reference range for eGFR: >60 mL/min/1.73m(2) Estimated Glomerular Filtration Rate (eGFR) is calculated using the 2020 CKD-EPI creatinine equation. GFR reportable units are ml/min/1.73m(2). Note: eGFR results will not be calculated for patients <18 years old. 04/20/2024 6:57 AM ASSISTANT MANAGER BILINGUAL 04/20/2024 7:05 AM ASSISTANT MANAGER BILINGUAL Heather Hutchinson APN-COMPASS OPERATOR LAB BLOOD Edited Re sult - Final Performing Organization Address City/[facility]/ZIP Co de Phone Number [facility] [address] [place] [address] * EXTRA BORIC ACID TUBE (04/19/2024 10:38 PM ASSISTANT MANAGER BILINGUAL) BORIC ACID EXTRA TUBE TUBE ON HOLD [facility] 04/19/2024 10:3 8 PM ASSISTANT MANAGER BILINGUAL 04/19/2024 10:38 PM ASSISTANT MANAGER BILINGUAL [facility] DO LAB BLOOD Final Result Performing Organization Address [facility] Co de Phone Number [facility] [address] [place] [address] * (ABNORMAL) UA - MICROSCOPIC, UR (04/19/2024 10:27 PM ASSISTANT MANAGER BILINGUAL) Pathologist [facility] UR SQUAMOUS EPITHELIAL 1+ NOT SIGNIFICANT /[LPF] [facility] UR HYALINE CAST 0-1 0 - 2 /[LPF] [facility] UR BACTERIA 1+(A) NEGATIVE [facility] Comment: SEE COMMENT Detection of bacteria can be present with urinary tract infection, specimen contamination or asymptomatic bacteriuria. Correlate clinically. UR RBC 0-4 0 - 4 /[HPF] [facility] UR WBC 0-5 0 - 5 /[HPF] [facility] 04/19/2024 10:2 7 PM ASSISTANT MANAGER BILINGUAL 04/19/2024 10:38 PM ASSISTANT MANAGER BILINGUAL [facility] DO LAB NON-BLOOD Final Result Performing Organization Address City/[facility]/ZIP Co de Phone Number [facility] [address] [place] [address] * (ABNORMAL) URINALYSIS (04/19/2024 10:27 PM ASSISTANT MANAGER BILINGUAL) COLOR YELLOW [facility] APPEARANCE CLEAR [facility] SPECIFIC GRAVITY 1.010 1.005 - 1.030 [facility] PH 6.5 5.0 - 8.0 [facility] PROTEIN NEGATIVE NEGATIVE [facility] GLUCOSE NEGATIVE NEGATIVE g/dL [facility] KETONES NEGATIVE NEGATIVE mg/dL [facility] BILIRUBIN, URINE NEGATIVE NEGATIVE [facility] BLOOD 1+(A) NEGATIVE [facility] NITRITE NEGATIVE NEGATIVE [facility] UROBILINOGEN 0.2 0.1 - 1.0 mg/dL [facility] LEUKOCYTE ESTERASE NEGATIVE NEGATIVE [facility] Urine clean catch 04/19/2024 10:27 PM ASSISTANT MANAGER BILINGUAL 04/19/2024 10:38 PM ASSISTANT MANAGER BILINGUAL us Gaurangi Alva DO LAB NON-BLOOD Final Result [facility] [address] [place] [address] * ORDER EEG (04/19/2024 2:56 PM ASSISTANT MANAGER BILINGUAL) Narrative OFFICE PERFORMED LAB - 04/19/2024 2:56 PM ASSISTANT MANAGER BILINGUAL Syed Marrero MD 04/19/2024 2:58 PM [facility] CLINICAL NEUROPHYSIOLOGY LABORATORY ELECTROENCEPHALOGRAM WITH VIDEO Patient Name: Barbi Rae Date of : 1990 Date of Service: 04/19/24 Type of test: Bedside A/D EEG ICD9: R56.9 Test #: [id number] Equipment: GBX1 Referring Physician: Savannah Camarillo Neurologist: Dr. Florinda Harrell Neurophysiologist: Dr. Syde Marrero Room/Bed: MARIIA: [facility] 10-E10 Clinical Information: 33YO right-handed female with past medical history of HTN, bipolar disorder, ADHD, anxiety who presented to [facility] on 04/18 with complaints of LUE/LLE numbness and vomiting, had witnessed GTC seizure in ED triage. HCT, MRI brain negative for acute findings. First time seizure, likely multifactorial related to recent GI illness, excessive alcohol use with possible withdrawal, electrolyte abnormalities, stress and lack of sleep.. No past medical history on file. Current Facility-Administered Medications Medication Frequency ALPRAZolam Tab 1 mg BIDPRN Sodium Chloride Flush Solution 10 mL (SODIUM CHLORIDE) Flush per Protocol NaCl 0.65% Solution 1 Bertrand (OCEAN) TIDPRN Acetaminophen Tab 500 mg (TYLENOL EXTRA STRENGTH) Q6HPRN Ondansetron Solution 4 mg (Zofran) Q6HPRN Potassium Chloride Solution 10 mEq ONCE LevETIRAcetam IV Push 500 mg (KEPPRA) Now then q12hr Current Outpatient Medications Medication Sig Amphetamine-Dextroamphetamine (ADDERAL) 30 MG PO Tab Take 1 Tab by mouth two times per day. ALPRAZolam 1 MG PO Tab Take 1 Tab by mouth twice daily as needed. RECORDING CONDITIONS: A 17 channel [employer] digital electroencephalogram with campus monitor was obtained. The 10-20 Measuring system was utilized prior to application of 21 scalp electrodes. Longitudinal and coronal bipolar montages and ear reference montages were used with usual gain and filter settings. FINDINGS: Background: A posterior-dominant background rhythm of 9-10 Hz with an amplitude of 30-40 microvolts is seen. No electrocardiographic abnormalities were seen. Sleep: No sleep complexes were noted. Abnormal Activity: None. Activation: Photic stimulation is performed intermittently over stimulus frequency range from 1 to 24 Hz and induces occipital activity at some of the tested frequencies but does not otherwise activate the record. Hyperventilation is not performed. IMPRESSION: This EEG is a normal study recorded in the awake and drowsy states. No focal, lateralizing, or epileptiform activity is seen and no seizures are recorded. COMMENTS: Please note, the absence of epileptiform activity does not rule out the possibility of a seizure disorder. Syed Marrero MD Neurophysiologist [facility] Department of Neurology us Savannah Camarillo PA-C EEG ORDERS Final Result Performing Organization Address [facility] Co de Phone Number OFFICE PERFORMED LAB see department info below * EXTRA SST TUBE 1 (04/19/2024 10:33 AM ASSISTANT MANAGER BILINGUAL) SST EXTRA TUBE TUBE ON HOLD [facility] 04/19/2024 10:3 3 AM ASSISTANT MANAGER BILINGUAL 04/19/2024 10:33 AM ASSISTANT MANAGER BILINGUAL us Heather Hutchinson APN-COMPASS OPERATOR LAB BLOOD Final Res ult Performing Organization Address [facility]/ZIP Co de Phone Number [facility] [address] [place] [address] * EXTRA BLUE TUBE 1 (04/19/2024 10:33 AM ASSISTANT MANAGER BILINGUAL) BLUE TOP EXTRA TUBE TUBE ON HOLD [facility] 04/19/2024 10:3 3 AM ASSISTANT MANAGER BILINGUAL 04/19/2024 10:33 AM ASSISTANT MANAGER BILINGUAL us Heathernaya Hutchinson INTERNET MARKETING STRATEGIST-COMPASS OPERATOR LAB BLOOD Final Res ult [facility] [address] [place] [address] * (ABNORMAL) COMP METABOLIC PANEL, BL (04/19/2024 10:33 AM ASSISTANT MANAGER BILINGUAL) GLUCOSE 91 60 - 99 mg/dL [facility] SODIUM 139 133 - 145 meq/L [facility] POTASSIUM 2.7(LL) 3.5 - 5.3 meq/L [facility] Comment:Critical value. Spec imen analyzed in duplicate CHLORIDE 105 98 - 108 meq/L [facility] CO2 21(L) 22 - 29 meq/L [facility] ANION GAP 16 10 - 20 meq/L [facility] BUN 6 6 - 20 mg/dL [facility] CREATININE, SERUM 0.5 0.5 - 0.9 mg/dL [facility] TOTAL PROTEIN 5.9(L) 6.0 - 8.3 g/dL [facility] ALBUMIN 3.7 3.5 - 5.2 g/dL [facility] CALCIUM 7.3(L) 8.5 - 10.5 mg/dL [facility] BILIRUBIN TOTAL 1.5(H) 0.0 - 1.2 mg/dL [facility] ALK PHOSPHATASE 73 35 - 104 U/L [facility] SGOT 86(H) 0 - 35 U/L [facility] SGPT 21 0 - 35 U/L [facility] GFR >60 [facility] Comment: Reference range for eGFR: >60 mL/min/1.73m(2) Estimated Glomerular Filtration Rate (eGFR) is calculated using the 2020 CKD-EPI creatinine equation. GFR reportable units are ml/min/1.73m(2). Note: eGFR results will not be calculated for patients <18 years old. 04/19/2024 10:3 3 AM ASSISTANT MANAGER BILINGUAL 04/19/2024 10:33 AM ASSISTANT MANAGER BILINGUAL us Heather Hutchinson APN-COMPASS OPERATOR LAB BLOOD Edited Joie ochoa - Final [facility] [address] [place] [address] * (ABNORMAL) CBC-W DIFFERENTIAL (04/19/2024 10:33 AM ASSISTANT MANAGER BILINGUAL) WBC 8.0 4.0 - 10.0 10*3/[facility] RBC 3.47(L) 3.90 - 5.25 10*6/[facility] HEMOGLOBIN 12.4 12.0 - 16.0 g/dL [facility] HCT 34.9(L) 36.0 - 48.0 % [facility] MCV 100.6(H) 81.0 - 99.0 CU Microns [facility] MCH 35.7(H) 27.0 - 33.0 pg [facility] MCHC 35.5 32.5 - 36.5 g/dL [facility] RDW 14.2 11.6 - 14.8 % [facility] PLATELET COUNT 150 150 - 400 10*3[facility] Comment:Result double-checke d ABSOLUTE NUCL RBC 0.0 0.0 - 0.0 10*3[facility] NUCLEATED RBC% 0.0 0.0 - 0.0 % [facility] ABSOLUTE NEUT 6.7 1.5 - 8.0 10*3[facility] ABSOLUTE LYMPH 0.7(L) 1.0 - 4.0 10*3[facility] ABSOLUTE MONO 0.6 0.1 - 0.7 10*3[facility] ABSOLUTE EOS 0.0 0.0 - 0.6 10*[address] [place] [address] ABSOLUTE BASO 0.0 0.0 - 0.2 10*3[facility] ABSOLUTE IMM GRAN 0.0 0.0 - 0.1 10*3[facility] NEUT% 83.6(H) 40.0 - 74.0 % [facility] LYMPH% 8.3(L) 12.0 - 40.0 % [facility] MONO% 7.0 4.0 - 12.0 % [facility] EOSIN% 0.3 0.0 - 8.0 % [facility] BASO% 0.4 0.0 - 2.0 % [facility] IMM GRAN% 0.4 0.0 - 1.1 % [facility] MDKENNEDY COMMENT SEE COMMENT [facility] Comment:Automated Differenti al performed 04/19/2024 10:3 3 AM ASSISTANT MANAGER BILINGUAL 04/19/2024 10:33 AM ASSISTANT MANAGER BILINGUAL us Heather Hutchinson APN-COMPASS OPERATOR LAB BLOOD Final Res ult Performing Organization Address [facility]/ZIP Co de Phone Number [address] [address] * MAGNESIUM, BL (04/19/2024 10:33 AM ASSISTANT MANAGER BILINGUAL) MAGNESIUM 1.8 1.7 - 2.2 mg/dL [facility] 04/19/2024 10:3 3 AM ASSISTANT MANAGER BILINGUAL 04/19/2024 10:33 AM ASSISTANT MANAGER BILINGUAL us Heather REDDYN-COMPASS OPERATOR LAB BLOOD Final Res ult Performing Organization Address [facility] Co de Phone Number [address] [address] * MRI BRAIN W & W/O CONTRAST (04/19/2024 9:01 AM ASSISTANT MANAGER BILINGUAL) Anatomical Region Laterality Modality Head and Neck Magnetic Resonan ce 04/19/2024 9:09 AM ASSISTANT MANAGER BILINGUAL Impressions 04/19/2024 9:30 AM ASSISTANT MANAGER BILINGUAL IMPRESSION: 1. No acute infarct, intracranial mass, or evidence of mesial temporal sclerosis. 2. A couple punctate foci of nonspecific T2 prolongation in the supratentorial white matter are present. Electronically Verified and Signed by Attending Radiologist: Erich Tyler MD 04/19/2024 9:30 AM This exam was dictated within [facility]. Narrative 04/19/2024 9:30 AM ASSISTANT MANAGER BILINGUAL CLINICAL HISTORY: SEIZURES FALL FACIAL INJURY TECHNIQUE: MRI of the brain was performed without and with IV contrast. CONTRAST: GADOTERATE MEGLUMINE 7.5 MMOL/15ML IV SOLN: 12 mL COMPARISON: CT brain dated 04/18/2024. FINDINGS:There is no acute infarct. A couple punctate foci of T2 prolongation in the supratentorial white matter are present, nonspecific. There is no pathologic intracranial enhancement, intracranial mass, pathologic extra-axial collection, significant focus of gradient susceptibility, or hydrocephalus. Coronal T2- weighted imaging does not demonstrate evidence of mesial temporal sclerosis. The craniocervical junction and major vascular flow voids are unremarkable. Procedure Note Erich Tyler, DO - 04/19/2024 CLINICAL HISTORY: SEIZURES FALL FACIAL INJURY TECHNIQUE: MRI of the brain was performed without and with IV contrast. CONTRAST: GADOTERATE MEGLUMINE 7.5 MMOL/15ML IV SOLN: 12 mL COMPARISON: CT brain dated 04/18/2024. FINDINGS:There is no acute infarct. A couple punctate foci of [id number] in the supratentorial white matter are present, nonspecific.There is no pathologic intracranial enhancement, intracranial mass,pathologic extra-axial collection, significant focus of gradientsusceptibility, or hydrocephalus. Coronal T2- weighted imaging does notdemonstrate evidence of mesial temporal sclerosis. The craniocervicaljunction and major vascular flow voids are unremarkable. IMPRESSION IMPRESSION: 1. No acute infarct, intracranial mass, or evidence of mesial temporalsclerosis. 2. A couple punctate foci of nonspecific T2 prolongation in thesupratentorial white matter are present. Electronically Verified and Signed by Attending Radiologist: Inocencia MATT 04/19/2024 9:30 AM This exam was dictated within [facility]. Orestes Mortensen MD MAGNETIC RESONANCE IMAGIN G ORDERS Final Result * EXTRA BORIC ACID TUBE (04/19/2024 2:50 AM ASSISTANT MANAGER BILINGUAL) BORIC ACID EXTRA TUBE TUBE ON [facility] Urine 04/19/2024 2:50 AM ASSISTANT MANAGER BILINGUAL 04/19/2024 2:56 AM ASSISTANT MANAGER BILINGUAL us Orestes Mortensen MD LAB BLOOD Final Res ult Performing Organization Address [facility] Co de Phone Number [address] [address] * (ABNORMAL) SENS-DRUG ABUSE SCREEN URINE 8 PANEL WITHOUT CONFIRMATION (04/19/2024 2:50 AM ASSISTANT MANAGER BILINGUAL) MARIJUANA SCRN, UR W/O CONF Negative [facility] Comment:Assay cutoff 50 ng/m L COCAINE MET SCRN, UR W/O CONF Negative [facility] Comment:Assay cutoff 300 ng/ mL AMPHETAMINE SCRN, UR W/O CONF PRESUMPTIVE POS(A) [facility] Comment:Assay cutoff 1000 ng /mL BARBITURATE SCRN, UR W/O CONF Negative [facility] Comment:Assay cutoff 200 ng/ mL OPIATE SCRN, UR W/O CONF Negative [facility] Comment:Assay cutoff 300 ng/ mL METHADONE SCRN, UR W/O CONF Negative [facility] Comment:Assay cutoff 300 ng/ mL BENZODIAZEPINE SCRN, UR W/O CONF PRESUMPTIVE POS(A) [facility] Comment:Assay cutoff 200 ng/ mL PHENCYCLIDINE SCRN, UR W/O CONF Negative [facility] Comment: Assay cutoff 25 ng/mL This is unconfirmed testing and may only be used for medical purposes 04/19/2024 2:50 AM ASSISTANT MANAGER BILINGUAL 04/19/2024 5:43 AM ASSISTANT MANAGER BILINGUAL us Orestes Mortensen MD LAB NON-BLOOD Final Res ult Performing Organization Address [facility]/ZIP Co de Phone Number [facility] [address] [place] [address] * EXTRA OTHER/MISC SPECIMEN 2 (04/19/2024 2:50 AM ASSISTANT MANAGER BILINGUAL) OTHER EXTRA SPECIMEN OTHER ON HOLD [facility] 04/19/2024 2:50 AM ASSISTANT MANAGER BILINGUAL 04/19/2024 2:57 AM ASSISTANT MANAGER BILINGUAL us Orestes Mortensen MD LAB BLOOD Final Res ult Performing Organization Address City/[facility]/ZIP Co de Phone Number [facility] [address] [place] [address] * EXTRA OTHER/MISC SPECIMEN 1 (04/19/2024 2:50 AM ASSISTANT MANAGER BILINGUAL) OTHER EXTRA SPECIMEN OTHER ON HOLD [facility] 04/19/2024 2:50 AM ASSISTANT MANAGER BILINGUAL 04/19/2024 2:57 AM ASSISTANT MANAGER BILINGUAL us Orestes Mortensen MD LAB BLOOD Final Res ult Performing Organization Address [facility] Co de Phone Number [facility] [address] [place] [address] * CT MAXILLOFACIAL W/O CONTRAST (04/19/2024 12:16 AM ASSISTANT MANAGER BILINGUAL) Anatomical Region Laterality Modality Head Computed Tomogra phy 04/19/2024 12:2 2 AM ASSISTANT MANAGER BILINGUAL Impressions 04/19/2024 12:24 AM ASSISTANT MANAGER BILINGUAL IMPRESSION: Minimally displaced nasal bone fractures with adjacent soft tissue swelling. Electronically Verified and Signed by Attending Radiologist: Buddy Ling MD 04/19/2024 12:24 AM This exam was dictated within [facility]. Narrative 04/19/2024 12:24 AM ASSISTANT MANAGER BILINGUAL EXAM: CT MAXILLOFACIAL W/O CONTRAST CLINICAL INDICATION: fall COMPARISON: None. TECHNIQUE: Helical maxillofacial CT without contrast administration. FINDINGS: There are minimally displaced nasal bone fractures with adjacent soft tissue swelling. There is a bandage over the nose also. No other maxillofacial fracture is identified. There is no temporomandibular joint dislocation. There is trace mucosal thickening in the maxillary sinuses. No sinus air-fluid levels are identified. There is no retrobulbar orbital hematoma. Procedure Note Buddy Ling MD - 04/19/2024 EXAM: CT MAXILLOFACIAL W/O CONTRAST CLINICAL INDICATION: fall COMPARISON: None. TECHNIQUE: Helical maxillofacial CT without contrast administration. FINDINGS: There are minimally displaced nasal bone fractures with adjacentsoft tissue swelling. There is a bandage over the nose also. No other maxillofacial fracture is identified. There is notemporomandibular joint dislocation. There is trace mucosal thickening in the maxillary sinuses. No sinusair-fluid levels are identified. There is no retrobulbar orbitalhematoma. IMPRESSION IMPRESSION: Minimally displaced nasal bone fractures with adjacent softtissue swelling. Electronically Verified and Signed by Attending Radiologist: Dane MATT 04/19/2024 12:24 AM This exam was dictated within [facility]. Orestes Mortensen MD CAT SCAN Final Res ult * CT CERVICAL SPINE W/O CONTRAST (04/19/2024 12:16 AM ASSISTANT MANAGER BILINGUAL) Anatomical Region Laterality Modality Neck Computed Tomogra phy 04/19/2024 12:1 9 AM ASSISTANT MANAGER BILINGUAL Impressions 04/19/2024 12:22 AM ASSISTANT MANAGER BILINGUAL IMPRESSION: No evidence of acute cervical spine fracture. Electronically Verified and Signed by Attending Radiologist: Buddy Ling MD 04/19/2024 12:22 AM This exam was dictated within [facility]. Narrative 04/19/2024 12:22 AM ASSISTANT MANAGER BILINGUAL EXAM: CT CERVICAL SPINE W/O CONTRAST CLINICAL INDICATION: fall COMPARISON: None. TECHNIQUE: Helical CT of the cervical spine without contrast administration. FINDINGS: There is no evidence of acute cervical spine fracture. There is no evidence of traumatic intervertebral subluxation. There is a developmentally incomplete posterior arch of C1. There is mild multilevel facet arthropathy in the upper cervical spine. Procedure Note Buddy Ling MD - 04/19/2024 EXAM: CT CERVICAL SPINE W/O CONTRAST CLINICAL INDICATION: fall COMPARISON: None. TECHNIQUE: Helical CT of the cervical spine without contrastadministration. FINDINGS: There is no evidence of acute cervical spine fracture. There isno evidence of traumatic intervertebral subluxation. There is a developmentally incomplete posterior arch of C1. There is mildmultilevel facet arthropathy in the upper cervical spine. IMPRESSION IMPRESSION: No evidence of acute cervical spine fracture. Electronically Verified and Signed by Attending Radiologist: Dane MATT 04/19/2024 12:22 AM This exam was dictated within [facility]. us Orestes Mortensen MD CAT SCAN Final Res ult * CT HEAD W/O CONTRAST (04/19/2024 12:16 AM ASSISTANT MANAGER BILINGUAL) Anatomical Region Laterality Modality Head Computed Tomogra phy 04/18/2024 11:5 8 PM ASSISTANT MANAGER BILINGUAL Impressions 04/19/2024 12:19 AM ASSISTANT MANAGER BILINGUAL IMPRESSION: 1. No acute intracranial abnormality is identified by unenhanced CT. 2. Maxillofacial findings are reported separately in the maxillofacial CT. Electronically Verified and Signed by Attending Radiologist: Buddy Ling MD 04/19/2024 12:19 AM This exam was dictated within [facility]. Narrative 04/19/2024 12:19 AM ASSISTANT MANAGER BILINGUAL EXAM: CT HEAD W/O CONTRAST CLINICAL INDICATION: Seizure. Blood from nose and mouth. COMPARISON: None. TECHNIQUE: CT of the head without contrast. FINDINGS: The ventricles and cortical sulci are proportionate to the patient's age. There is no midline shift or mass effect. There is no evidence of acute intracranial hemorrhage. There are no specific CT features of an acute cortical ischemic infarct. Please note that CT can be insensitive in the early stages of an acute ischemic infarct. The visualized mastoid air cells are grossly clear. There is no depressed calvarial fracture. Procedure Note Buddy Ling MD - 04/19/2024 EXAM: CT HEAD W/O CONTRAST CLINICAL INDICATION: Seizure. Blood from nose and mouth. COMPARISON: None. TECHNIQUE: CT of the head without contrast. FINDINGS: The ventricles and cortical sulci are proportionate to thepatient's age. There is no midline shift or mass effect. There is noevidence of acute intracranial hemorrhage. There are no specific CT features of an acute cortical ischemic infarct.Please note that CT can be insensitive in the early stages of an acuteischemic infarct. The visualized mastoid air cells are grossly clear. There is no depressedcalvarial fracture. IMPRESSION IMPRESSION: 1. No acute intracranial abnormality is identified by unenhanced CT. 2. Maxillofacial findings are reported separately in the maxillofacialCT. Electronically Verified and Signed by Attending Radiologist: Dane MATT 04/19/2024 12:19 AM This exam was dictated within [facility]. us Orestes Mortensen MD CAT SCAN Final Res ult * LACTIC ACID, BL (04/19/2024 12:02 AM ASSISTANT MANAGER BILINGUAL) LACTIC ACID 1.7 0.5 - 2.0 mmol/L [facility] 04/19/2024 12:0 2 AM ASSISTANT MANAGER BILINGUAL 04/19/2024 12:14 AM ASSISTANT MANAGER BILINGUAL us Orestes Mortensen MD LAB BLOOD Final Res ult Performing Organization Address [facility]/ZIP Co de Phone Number [address] [address] * TROPONIN T, HIGH SENSITIVITY (NS LEGACY PERFORMED) (04/18/2024 11:18 PM ASSISTANT MANAGER BILINGUAL) TROPONIN T, HIGH SENSITIVITY <6 0 - 13 ng/L [facility] 04/18/2024 11:1 8 PM ASSISTANT MANAGER BILINGUAL 04/18/2024 11:18 PM ASSISTANT MANAGER BILINGUAL us Orestes Mortensen MD LAB BLOOD Final Res ult Performing Organization Address [facility] Co de Phone Number [address] [address] * EXTRA SST TUBE 1 (04/18/2024 11:18 PM ASSISTANT MANAGER BILINGUAL) SST EXTRA TUBE TUBE ON HOLD [facility] 04/18/2024 11:1 8 PM ASSISTANT MANAGER BILINGUAL 04/18/2024 11:18 PM ASSISTANT MANAGER BILINGUAL us Orestes Mortensen MD LAB BLOOD Final Res ult Performing Organization Address City/[facility]/ZIP Co de Phone Number [address] [address] * (ABNORMAL) COMP METABOLIC PANEL, BL (04/18/2024 11:18 PM ASSISTANT MANAGER BILINGUAL) GLUCOSE 184(H) 60 - 99 mg/dL [facility] SODIUM 144 133 - 145 meq/L [facility] POTASSIUM 2.4(LL) 3.5 - 5.3 meq/L [facility] Comment:Critical value. Spec imen analyzed in duplicate CHLORIDE 101 98 - 108 meq/L [facility] CO2 15(L) 22 - 29 meq/L [facility] ANION GAP 30(H) 10 - 20 meq/L [facility] BUN 11 6 - 20 mg/dL [facility] CREATININE, SERUM 0.6 0.5 - 0.9 mg/dL [facility] TOTAL PROTEIN 7.0 6.0 - 8.3 g/dL [facility] ALBUMIN 4.4 3.5 - 5.2 g/dL [facility] CALCIUM 8.5 8.5 - 10.5 mg/dL [facility] BILIRUBIN TOTAL 2.1(H) 0.0 - 1.2 mg/dL [facility] ALK PHOSPHATASE 95 35 - 104 U/L [facility] SGOT 154(H) 0 - 35 U/L [facility] SGPT 30 0 - 35 U/L [facility] GFR >60 [facility] Comment: Reference range for eGFR: >60 mL/min/1.73m(2) Estimated Glomerular Filtration Rate (eGFR) is calculated using the 2020 CKD-EPI creatinine equation. GFR reportable units are ml/min/1.73m(2). Note: eGFR results will not be calculated for patients <18 years old. 04/18/2024 11:1 8 PM ASSISTANT MANAGER BILINGUAL 04/18/2024 11:18 PM ASSISTANT MANAGER BILINGUAL us Orestes Mortensen MD LAB BLOOD Edited Re sult - Final [facility] [address] [place] [address] * BETA-HCG QUANT., BL (04/18/2024 11:18 PM ASSISTANT MANAGER BILINGUAL) BETA HCG QUANT <1 m[IU]/mL [facility] Comment: Beta hCG reference ranges: Male <2 mIU/mL Female Premenopausal, non- <1 mIU/mL Postmenopausal <7 mIU/mL Beta hCG ranges during normal , as reported in the literature, are: 3-4 weeks post LMP 9 - 130 mIU/mL 4-5 weeks post LMP 75 - 2,600 mIU/mL 5-6 weeks post LMP 850 - 20,800 mIU/mL 6-7 weeks post LMP 4,000 - 100,200 mIU/mL 7-12 weeks post LMP 11,500 - 289,000 mIU/mL 12-16 weeks post LMP 18,300 - 137,000 mIU/mL 16-29 weeks (2nd trimester) 1,400 - 53,000 mIU/mL 29-41 weeks (3rd trimester) 940 - 60,000 mIU/mL 04/18/2024 11:1 8 PM ASSISTANT MANAGER BILINGUAL 04/18/2024 11:18 PM ASSISTANT MANAGER BILINGUAL Orestes Mortensen MD LAB BLOOD Final Res ult Performing Organization Address [facility] de Phone Number [address] [address] * PHOSPHORUS, BL (04/18/2024 11:18 PM ASSISTANT MANAGER BILINGUAL) PHOSPHORUS 4.1 2.5 - 4.5 mg/dL [facility] 04/18/2024 11:1 8 PM ASSISTANT MANAGER BILINGUAL 04/18/2024 11:18 PM ASSISTANT MANAGER BILINGUAL Orestes Mortensen MD LAB BLOOD Final Res ult Performing Organization Address [facility] de Phone Number [address] [address] * (ABNORMAL) MAGNESIUM, BL (04/18/2024 11:18 PM ASSISTANT MANAGER BILINGUAL) MAGNESIUM 1.2(L) 1.7 - 2.2 mg/dL [facility] 04/18/2024 11:1 8 PM ASSISTANT MANAGER BILINGUAL 04/18/2024 11:18 PM ASSISTANT MANAGER BILINGUAL Orestes Mortensen MD LAB BLOOD Final Res ult Performing Organization Address [facility]/ZIP Co de Phone Number [facility] [address] [place] [address] * ACETAMINOPHEN, BL (04/18/2024 11:18 PM ASSISTANT MANAGER BILINGUAL) ACETAMINOPHEN <5.0 10.0 - 20.0 ug/mL [facility] 04/18/2024 11:1 8 PM ASSISTANT MANAGER BILINGUAL 04/18/2024 11:18 PM ASSISTANT MANAGER BILINGUAL us Orestes Mortensen MD LAB BLOOD Final Res ult Performing Organization Address [facility] Co de Phone Number [facility] [address] [place] [address] * SALICYLATE, BL (04/18/2024 11:18 PM ASSISTANT MANAGER BILINGUAL) SALICYLATES <3 30 - 100 ug/mL [facility] Comment: Salicylate Reference Ranges: Analgesic 30 - 100 ug/mL Anti-inflammatory 150 - 300 ug/mL Toxic > 300 ug/mL Lethal > 600 ug/mL 04/18/2024 11:1 8 PM ASSISTANT MANAGER BILINGUAL 04/18/2024 11:18 PM ASSISTANT MANAGER BILINGUAL Orestes Mortensen MD LAB BLOOD Final Res ult Performing Organization Address [facility] Co de Phone Number [facility] [address] [place] [address] * EXTRA BLUE TUBE 1 (04/18/2024 11:17 PM ASSISTANT MANAGER BILINGUAL) BLUE TOP EXTRA TUBE TUBE ON HOLD [facility] 04/18/2024 11:1 7 PM ASSISTANT MANAGER BILINGUAL 04/18/2024 11:17 PM ASSISTANT MANAGER BILINGUAL Orestes Mortensen MD LAB BLOOD Final Res ult Performing Organization Address [facility] Co de Phone Number [facility] [address] [place] [address] * (ABNORMAL) CBC-W DIFFERENTIAL (04/18/2024 11:17 PM ASSISTANT MANAGER BILINGUAL) WBC 16.0(H) 4.0 - 10.0 10*3/uL [facility] RBC 4.32 3.90 - 5.25 10*6/uL [facility] HEMOGLOBIN 15.4 12.0 - 16.0 g/dL [facility] HCT 43.5 36.0 - 48.0 % [facility] MCV 100.7(H) 81.0 - 99.0 CU Microns [facility] MCH 35.6(H) 27.0 - 33.0 pg [facility] MCHC 35.4 32.5 - 36.5 g/dL [facility] RDW 14.2 11.6 - 14.8 % [facility] PLATELET COUNT 187 150 - 400 10*3/uL [facility] ABSOLUTE NUCL RBC 0.0 0.0 - 0.0 10*3/uL [facility] NUCLEATED RBC% 0.0 0.0 - 0.0 % [facility] ABSOLUTE NEUT 13.1(H) 1.5 - 8.0 10*3/uL [facility] ABSOLUTE LYMPH 1.6 1.0 - 4.0 10*3/[facility] ABSOLUTE MONO 1.1(H) 0.1 - 0.7 10*3/[facility] ABSOLUTE EOS 0.0 0.0 - 0.6 10*3/[facility] ABSOLUTE BASO 0.1 0.0 - 0.2 10*3/[facility] ABSOLUTE IMM GRAN 0.1 0.0 - 0.1 10*3/uL [facility] NEUT% 81.6(H) 40.0 - 74.0 % [facility] LYMPH% 10.3(L) 12.0 - 40.0 % [facility] MONO% 7.1 4.0 - 12.0 % [facility] EOSIN% 0.3 0.0 - 8.0 % [facility] BASO% 0.4 0.0 - 2.0 % [facility] IMM GRAN% 0.3 0.0 - 1.1 % [facility] MDKENNEDY COMMENT SEE COMMENT [facility] Comment:Automated Differenti al performed 04/18/2024 11:1 7 PM ASSISTANT MANAGER BILINGUAL 04/18/2024 11:17 PM ASSISTANT MANAGER BILINGUAL Orestes Mortensen MD LAB BLOOD Final Res ult Performing Organization Address [facility] [place] [address] * COVID-19 INFLUENZA A/B FIDENCIO PCR (04/18/2024 11:14 PM ASSISTANT MANAGER BILINGUAL) [facility] COVID-19 INFLU A/B SPECIMEN SOURCE NASOPHARYNGEAL [facility] COVID-19 CORONAVIRUS PCR Not Detected NOT DETECTED [facility] INFLUENZA A Not Detected NOT DETECTED [facility] INFLUENZA B Not Detected NOT DETECTED [facility] Comment: Testing performed using a PCR assay. Test performed at: [place] [address] Bhumika Minor M.D., Ph.D. Manager Document Control [facility] # [id number] NASOPHARYNGEAL SWAB / Unknown 04/18/2024 11:14 PM ASSISTANT MANAGER BILINGUAL 04/18/2024 11:14 PM ASSISTANT MANAGER BILINGUAL Orestes Mortensen MD MICROBIOLOGY Final Res ult Performing Organization Address [facility] [place] [address] * (ABNORMAL) VENOUS BLOOD GAS (04/18/2024 11:11 PM ASSISTANT MANAGER BILINGUAL) [facility] VENOUS PH BLOOD 7.23(L) 7.31 - 7.42 [facility] VENOUS PCO2 41.7 41.0 - 51.0 mm[Hg] [facility] VENOUS PO2 79.5(H) 20.0 - 50.0 mm[Hg] [facility] VENOUS HCO3 16.8(L) 22.0 - 28.0 meq/L [facility] VENOUS TOTAL CO2 18.0(L) 23.0 - 29.0 meq/L [facility] VENOUS BASE EXCESS -10.2(L) -2.0 - 2.0 meq/L [facility] VENOUS O2 SATURATION 92.3(H) 60.0 - 85.0 % [facility] VENOUS O2 CONTENT 19.2 % [facility] OXYHEMOGLOBIN, VENOUS 89.3(H) 60.0 - 85.0 % [facility] 04/18/2024 11:1 1 PM ASSISTANT MANAGER BILINGUAL 04/18/2024 11:11 PM ASSISTANT MANAGER BILINGUAL us Orestes Mortensen MD LAB BLOOD Final Res ult Performing Organization Address City/[facility]/ZIP Co de Phone Number [facility] [address] [place] [address] * (ABNORMAL) ORDER ROUTINE EKG (04/18/2024 10:52 PM ASSISTANT MANAGER BILINGUAL) Systolic Blood Pressure mmHg [facility] Diastolic Blood Pressure mmHg [facility] Ventricular Rate 103 BPM [facility] Atrial Rate 103 BPM [facility] P-R Interval 80 ms [facility] QRS Duration 84 ms [facility] QT 358 ms [facility] QTC Calculation(Be zet) 468 ms [facility] P [place] 54 degrees [facility] R [place] 52 degrees [facility] T [place] 268 degrees [facility] Text Sinus tachycardia with short [place] ST & T wave abnormality, consider inferior ischemia ST & T wave abnormality, consider anterolateral ischemia Abnormal ECG No previous ECGs available Confirmed by Moraima Thomas MD ([id number]) on 04/20/2024 10:00:53 PM (A) [facility] 04/18/2024 10:5 2 PM ASSISTANT MANAGER BILINGUAL 04/20/2024 10:00 PM ASSISTANT MANAGER BILINGUAL us Orestes Mortensen MD EKG ORDERS Final Res ult Performing Organization Address City/[facility]/ZIP Co de Phone Number [facility] [address] [place] [address] from Last 3 Months Insurance [employer] PPO Advance Directives For more information, please contact: [phone] * Full Code (Latest Code Status on File) Date Activated Date Inactivated Comments 04/19/2024 11:05 AM If patient is pulseless, breathless, attempt CPR. Care Teams Sap Fico Architect Relationship Specialty Start Date End Date Physician, No Pcp, PCP - General 06/17/20
--- OUTSIDE RECORDS SUMMARY | 2024-06-10 21:51 | XMS_ITS | Data Portability ---
Author Organization [place] [facility], [place] - [facility] - Address [address] [place] [address] Assessment No assessment recorded. Plan of Treatment Reminders Order Date Submit Date Provider Last Modified By Organization Details Last Modified Time Details Appointments None recor ded. Lab cultu re, adilenenaya t 2018 019 [facility], [address] [facility], [place], [address], 9 14:57:26 rapid strep group A, tonny t 2018 019 DANNY In-House Test, For Internal Use Only, Do Not Delete/merge, [id number] 9 17:58:35 Referral None recor ded. Procedures None recor ded. Surgeries None recor ded. Imaging XR, skull , less than 4 view 2018 019 vinay toledo [facility] [address] [facility], [place], [address], 9 16:39:35 Medication Orders azith romyc in 250 mg table t 2018 019 [email or web address] [id number], [address] [place], [place], [id number], 9 19:42:52 Patient TargetsNo targets recorded. Patient Instructions Encounter Date Encounter Id Patient Instructions Last Modified By Organization Details Last Modified Time 03/23/2018 [id number] sore throat: car e instructions dpotti Not available 03/23/2018 10:42:55 DRINK PLENTY OF LIQUIDS (WATER, HOT TEA WITH HONEY AND LEMON) TAKE IBUPROFEN/TYLENOL EVERY 6 HOURS NEEDED FOR FEVER/PAIN HOT SHOWERS TWICE DAILY GOOD HANDWASHING TO PREVENT SPREAD OF DISEASE dpotti Not available 03/23/2018 10:44:00 07/14/2018 [id number] blisters on hand or foot in children: care instructions oalimi Not available 07/14/2018 19:59:41 Keep wound area clean and dry Can take Tylenol and/or Ibuprofen as needed for pain Return to clinic with signs of infection as discussed (redness, swelling, pus, severe pain) Follow up building rental manager as soon as possible Go to ED immediately with any worsening symptoms. oalimi Not available 07/14/2018 19:59:25 Patient has indicated that he/she does not have a primary care physician. Follow up with a primary care physician is recommended in {{24 hours 2-3 days 3-5 days 10 days 2 weeks}}. To make an appointment with Dr. Sylvester Villasenor, Dr. Willis Mclain or Dr. Sharron Garcia in the [facility], please call [phone]. If you prefer a location that is more convenient for you, please contact call [phone] ( ) to assist you in identifying a primary care physician. If you have any questions regarding your treatment or care received today, please do not hesitate to contact us at . If your condition worsens, please return to [facility]. If you feel that your condition is life-threatening call [phone] go to the nearest Emergency Department. Listed below are [facility] Emergency Departments: [place] [address] [place], [place], [address], We care for and about our patients. If you have any comments or suggestions about your visit with us today, please contact the Service Center Coordinator, Gisselle Menezes at . Thank you for entrusting us to care for you and your health needs. oalimi Not available 07/14/2018 19:59:31 02/04/2019 [id number] Your xrays showe d no skull fractures. Take Advil or Aleve for headache. Use an ice pack to the area for any swelling. You may feel tired over the next few days. IF YOU SHOULD GET MORE FATIGUED OR START VOMITING OR HAVE ANY WEAKNESSES, GO TO AN ER FOR FURTHER EVALUATION AND POSSIBLY A CAT SCAN OF YOUR HEAD. Follow up with your PMD early next week. tzimmers Not available 02/04/2019 16:09:29 Reason for Referral None Reported. Results Created Date Observation Date Name Description Value Unit Range Abnormal Flag Note LastModifiedBy Organization Detail LastModifiedTime 03/23/19 19 03/25/2018 tonny zhang report [facility] Phone : [phone] [facility] [address] Robby Alvarez [address] [place] [address] Fax: [facility] [phone] [facility] [place] [address] Micro biolo gy MDIL = BERNICE Dilut ion MINT = BERNICE Inter p TEODORO = Etest EINT = Etest Inter p KINT = Gonzáles Dilut ion Guzman Inter p PROCE DURE: Parvin woodard ACCES LOS: [phone] SOURC E: Tonny tSwb BODY SITE: *Same as Speci men Type* COLLE CTED DATE/ TIME: 2018 17:08 METALLURGICAL TESTER RECEI MATTIE DATE/ TIME: 2018 17:59 METALLURGICAL TESTER START DATE/ TIME: 2018 17:59 METALLURGICAL TESTER FREE TEXT SOURC E: FI NAL REPOR TS Final Repor t [] Verif ied Date/ Time/ Perso nnel: 2018 13:57 METALLURGICAL TESTER SRUTHI POWELL No Beta strep tococ cus group A, C, G, or Arcan obact erium isola crispin. [place] ELIMI NARY REPOR TS Preli minar y Repor t [] Verif ied Date/ Time/ Perso nnel: 2018 14:05 METALLURGICAL TESTER ANGEL RAI YA SD Cultu re in progr ess _ Admit :03/23 Patie nt STAN MYERS Name: Disch :03/23 MR#:[id number] FIN#[id number] [facility] ng [facility] Admit alirio MICHEL MD, LLUVIA Unit: Physi maryan: : 1990 Age:[age] years Atten oralia MICHEL MD, LLUVIA Physi maryan: Sex: Femal e Print Syste m Gener ated ID: Karishma simon Non-P atien t Chart Reque st [id number] Type: ID: Print Date/ 2018 13:57 METALLURGICAL TESTER Clien [address] [facility] [place] on Time: Copy To: Privi leged and Confi denti al do not re-re lease Not Available [address], [place], [address], 03/25/2018 14:57:25 03/23/19 19 03/23/2018 rapid strep group A, throa t Strep negati ve Not Available In-House Te st For Internal Use Only, Do Not Delete/merge, [id number] 03/23/2018 10:42:27 02/05/20 19 02/04/2019 XR, skull , less than 4 view Patipriti woodard Name: STAN BACK : 989 GLENIS [facility] [address] [address]- [facility] ogy Report s CPT code 34442 CDM code CDM descri ption [id number] XR Skull 1-3V Reason For Exam lacera tion Report Exam: 3 views of the skull . HISTOR Y: Lacera tion. FINDIN GS: There is no skull fractu re. No soft tissue swelli ng. No foreig n body. No lytic bone lesion . The nasal septum is in the midlin e. The sinuse s are well aerate d. The orbits appear normal . Electr onical ly signed by: Dr. Sung alvarez on 3:06 PM Marissa ren Transc ribed by: WENDY 15:06 Signed by: PERRY ALVAREZ MD, SUNG Hodge 15:06 [facility] (Imaging) [address] [place], [address], 02/04/2019 17:24:52 Result Notes None recorded. Problems Name Problem SNOMED Code Status Onset Date Resolution Date Notes Provider Name and Address Organization Details Recorded Time Anxiety 82218511 Active 2018 Soraya webb [facility] 9 15:30:36 Attention deficit hyperactiv ity disorder, predominan tly inattentiv e type 13481311 Active 2018 Soraya webb [facility] 9 15:30:41 Constipati on 19079705 Completed 07/14/2018 Rosita webb [facility] 9 19:43:48 Problem Notes None recorded. Procedures Surgical History None recorded. Imaging Results Imaging Date Name Status LastModified by Organization Details Last Modified Time 02/04/2019 XR, skull, less than [address] [facility] (Imaging) [address] [place], [address], 02/04/2019 17:24:52 Procedure Notes None recorded. Medical Equipment None Reported. Allergies Allergen ID Allergen Name Allergen Category Reaction Reaction Severity Criticality Documentation Date Start Date Code Code System Note Provider Name and Address Organization Details Recorded Time 352829 clindamyc in Not available Not available Not available Not available 03/23/2018 2582 RxNorm Swathi webb [facility] 9 10:28:41 931188 Augmentin medicatio n Not available Not available Not available 03/23/2018 07316 2 RxNorm Swathi webb [facility] 9 10:28:48 Medications Name Sig Start Date Stop Date Status Note LastModified by Organization Details LastModified Time Adderall 30 mg tablet Take 1 tablet every day by oral route. active Not Available Not Available No t Available azithromycin 250 mg tablet TAKE 2 TABLETS (500 MG) BY ORAL ROUTE ONCE DAILY FOR 1 DAY THEN 1 TABLET (250 MG) BY ORAL ROUTE ONCE DAILY FOR 4 DAYS 07/14 completed Not Available Not Available Not Available Xanax 0.5 mg 1 QD prn active Not Available Not Available No t Available Vitals Date Recorded Heart rate Respiratory rate Body temperature Oxygen saturation Oxygen saturation in Arterial blood by Pulse oximetry Body weight Body mass index (BMI) Body height Systolic blood pressure Diastolic blood pressure Provider Name and Address Organization Details Last Updated DateTime 9 88 /min 14 /min 98.6 [degF] 96 % 96 % 97580.0 8 g 23.8 kg/m2 151.13 cm 120 mm[Hg] 60 mm[Hg] Swathi Andersen [facility] 9 10:26:43 Date Recorded Body height Body mass index (BMI) Body weight Heart rate Respiratory rate Oxygen saturation Oxygen saturation in Arterial blood by Pulse oximetry Pain severity - 0-10 verbal numeric rating [Score] - Reported Body temperature Systolic blood pressure Diastolic blood pressure Provider Name and Address Organization Details Last Updated DateTime 9 151.13 cm 23.8 kg/m2 33703.0 8 g 63 /min 12 /min 98 % 98 % 8 98.4 [degF] 121 mm[Hg] 79 mm[Hg] Tc Menezes [facility] 9 19:42:06 Date Recorded Body height Body mass index (BMI) Body weight Heart rate Respiratory rate Body temperature Systolic blood pressure Diastolic blood pressure Provider Name and Address Organization Details Last Updated DateTime 9 151.13 cm 23.8 kg/m2 34941.0 8 g 68 /min 20 /min 99.1 [degF] 114 mm[Hg] 71 mm[Hg] Soraya Chand [facility] 9 15:29:59 Social History Question Answer Notes LastModified by Organizat ion Details LastModified Time Tobacco Smoking Status Never Smoker Swathi Hancarlos webb, [facility] 03/23/2018 10:29:48 What Is Your Level Of Alcohol Consumption? None Information not available 03/23/2018 Are You Blind Or Do You Have Difficulty Seeing? 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 02/04/2019 Information not available 02/04/2019 Are You Sexually Active? Yes Information not available 02/04/2019 Sex: Unknown Functional Status None recorded. Mental Status Question Answer Note LastModified by Organization D etails LastModified Time Do you have difficulty concentrating, remembering or making decisions? No Information no t available 02/04/2019 Family History Relationship Description Onset Age of this Age Resolved Age Notes LastModified by Organization Details LastModified Time Father No current problems or disability Not available 03/23 10:29:11 Mother No current problems or disability Not available 03/23 10:29:11 Medical History No medical history recorded. Gynecological History Statement/Question Response Date of LMP 03/07/2018 Obstetrics History GPAL:G 0 P 0 0 0 0 Immunizations Vaccine Type Date Status Note Provider Nam e and Address Organization Details Recorded Time Tdap 02/04/2019 completed Not Available [facility] 03/18/2019 02:31:18 Past Encounters Encounter ID Performer Location Encounter Start Date Encounter Closed Date Diagnosis/Indication Diagnosis SNOMED-CT Code Diagnosis ICD10 Code Diagnosis Note [id number] [facility] [address] [facility] [address] [place] [address] 06/16/2010 10:43:55 06/17/2010 10:37:39 [id number] Lluvia Michel MD [address] [address] 03/23/2018 10:12:54 03/23/2018 11:45:06 Pharyngitis 936312888 J02.9 [id number] JULIANA Martinez [address] [address] 07/14/2018 18:59:20 07/18/2018 16:01:20 Blister of finger without infection 64431152 S60.429A [id number] William Nieto MD [address] [address] 02/04/2019 15:20:43 02/06/2019 16:39:34 Contusion of scalp 64053635 S00.03XA Simple lac eration of scalp 370869849 S01.01XA Administra tion of diphtheria, pertussis, and tetanus vaccine 009274662 Z23 Health Concerns Section Related Observation LastModified by Organization Detai ls LastModified Time None Recorded Concern Status LastModified by Organization Details LastModified Time None Recorded Advance Directives Directive None Recorded Payers Encounter Date Sequence Insurance Name Policy Number Policy Healy Covered Member ID Healy Member ID Guarantor Name 06/16/2010 1 [place] [id number] Stan Rae [id number] Stan Rae 03/23/2018 1 [place] [id number] Stan Rae [id number] Stan Rae 07/14/2018 1 [place] [id number] Stan aRe [id number] Stan Rae 02/04/2019 1 [place] [id number] Stan Rae [id number] Stan Rae Notes Date Note Type Note Provider Name and Address Organization Details Recorded Time 03/23/2018 text/html sore throat sinc e Wednesday, painful to swallow, swollen glands. Tried cepacol lozenges which helped a little. some cough also, ears plugged. runny nose. fever of 99.7. Took tylenol for that Lluvia Michel MD [address] [facility],[address], [place], [address], [facility] 03/23/2018 11:30:06 07/14/2018 text/html 27 yo female presents with blister to right ring finger x 4 days ago. Pt reports that she went to her building rental manager for wart treatment 4 days ago, warts was treated using liquid nitrogen and few hours later she started to notice blisters, she called derm office today and there was no response. Reports itching and pain to right ring finger. Denies fever, chills, or any other associate symptoms. Pt reports that she has multiple blister, only the big one is causing her much pain, and pressure JULIANA Martinez [address] [facility],[address], [place], [address], [facility] 07/14/2018 20:25:18 02/04/2019 text/html Pt struck left upper forehead / scalp on stucco edge of house. Remembers it all and di not have LOC. was there as witness. Pt had bleeding from cut at site. No weakness, LUCIANO, vomiting, neck pain. William Nieto MD [address] [facility],[address], [place], [address], [facility] 02/04/2019 16:12:52 OBGyn Episode No OBEpisode recorded.
--- OUTSIDE RECORDS SUMMARY | 2024-06-10 21:51 | XMS_ITS | Referral Summary ---
Author Organization [facility] Address [address] [place] [address] Care Team Providers Care Recreation Technician Name Role Phone Physician, No Pcp MD Primary Care Provider Unava ilable Encounters Date Type Department Care Team Description 05/12/2024 [facility] d Advice Neurology [address] [id number] Lucie Choi MD Letter 05/12/2024 9:00 AM CDT Office Visit Neurology [address] [phone] Lucie Choi MD Provoked seizure (HCC) (Primary Dx) Discharge Disposition: Home or Self Care 04/18/2024 10:46 PM GENERAL DENTIST/OWNER - 04/21/2024 12:09 PM GENERAL DENTIST/OWNER Hospital Encounter [address] [place] [address] Aníbal Hobbs MD Alanis, MD Alva Santiago Gaurangi, DO Seizure (HCC) (Primary Dx); ETOH abuse; Attention deficit hyperactivity disorder (ADHD), unspecified ADHD type; Hypokalemia; Non-seasonal allergic rhinitis, unspecified trigger; Closed fracture of nasal bone, initial encounter; Hepatic steatosis Discharge Disposition: Home or Self Care from Last 3 Months Allergies Active Allergy Reactions Criticality Noted Date [...] NA SolutionIndicat ions:Nasal Mucosa Irritation Place 1 Pearcy in the nose three times per day [...] 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 Answer Date of Assessment Author No 04/19/2024 3:58 PM GENERAL DENTIST/OWNER DayJj RN * Are you blind or do you have serious difficulty seeing, even when wearing glasses? Answer Date of Assessment Author No 04/19/2024 3:58 PM GENERAL DENTIST/OWNER DayJj RN * Do you have serious difficulty walking or climbing stairs? (5 years old or older) Answer Date of Assessment Author No 04/19/2024 3:58 PM [facility] DayJj RN * Do you have difficulty dressing or bathing? (5 years old or older) Answer Date of Assessment Author No 04/19/2024 3:58 PM GENERAL DENTIST/OWNER DayJj RN * Because of a physical, mental, or emotional condition, do you have difficulty doing errands alone such as visiting a doctor???s office or shopping? (15 years old or older) Answer Date of Assessment Author No 04/19/2024 3:58 PM GENERAL DENTIST/OWNER Day, Jj person RN Mental Status * Because of a physical, mental, or emotional condition, do you have serious difficulty concentrating, remembering, or making decisions? (5 years old or older) Answer Entry Date Author No 04/19/2024 3:58 PM GENERAL DENTIST/OWNER Day, Jj person RN Plan of Treatment Not on file Procedures Procedure Name Priority Date/Time Associated Diagnosis Comments ADD-ON TEST (SPECIMEN IN LAB) Routine Lab 04/21/2024 9:31 AM GENERAL DENTIST/OWNER ADD-ON TEST (SPECIMEN IN LAB) Routine Lab 04/21/2024 7:44 AM GENERAL DENTIST/OWNER HB PHOSPHORUS * Routine 04/21/2024 6:06 AM GENERAL DENTIST/OWNER HB MAGNESIUM * Routine 04/21/2024 6:06 AM GENERAL DENTIST/OWNER HB HEPATIC FUNCTION PANEL* Routine 04/21/2024 6:06 AM GENERAL DENTIST/OWNER HB CBC/PLATELET* (P) Routine 04/21/2024 6:06 AM GENERAL DENTIST/OWNER HB BASIC METABOLIC PANEL* (P) Routine 04/21/2024 6:06 AM GENERAL DENTIST/OWNER NSG NUTRITION ADMISSION SCREEN Routine 04/20/2024 3:50 PM GENERAL DENTIST/OWNER US ABDOMEN LTD (LIVER/GB/DUCT/SPLEEN /PANCREAS) Routine 04/20/2024 8:31 AM GENERAL DENTIST/OWNER HB PHOSPHORUS * Routine 04/20/2024 6:57 AM GENERAL DENTIST/OWNER HB MAGNESIUM * Routine 04/20/2024 6:57 AM GENERAL DENTIST/OWNER HB CBC/PLATELET* (P) Routine 04/20/2024 6:57 AM GENERAL DENTIST/OWNER HB BASIC METABOLIC PANEL* (P) Routine 04/20/2024 6:57 AM GENERAL DENTIST/OWNER EXTRA BORIC ACID TUBE Routine 04/19/2024 10:38 PM GENERAL DENTIST/OWNER HB UA AUTO W/MICROSCOPIC* Routine 04/19/2024 10:27 PM GENERAL DENTIST/OWNER URINALYSIS Routine 04/19/2024 10:27 PM GENERAL DENTIST/OWNER ORDER EEG Routine 04/19/2024 2:56 PM GENERAL DENTIST/OWNER ADD-ON TEST (SPECIMEN IN LAB) ER-STAT 04/19/2024 11:15 AM GENERAL DENTIST/OWNER EXTRA BLUE TUBE 1 STAT 04/19/2024 10: 33 AM GENERAL DENTIST/OWNER EXTRA SST TUBE 1 STAT 04/19/2024 10:3 3 AM GENERAL DENTIST/OWNER HB MAGNESIUM * STAT 04/19/2024 10:33 AM GENERAL DENTIST/OWNER HB CBC/PLATELET* (P) STAT 04/19/2024 10:33 AM GENERAL DENTIST/OWNER HB COMPREHENSIVE METABOLIC PANEL* STAT 04/19/2024 10:33 AM GENERAL DENTIST/OWNER MRI BRAIN W & W/O CONTRAST ER-STAT 04/19/2024 9:01 AM GENERAL DENTIST/OWNER ADD-ON TEST (SPECIMEN IN LAB) ER-STAT 04/19/2024 5:37 AM GENERAL DENTIST/OWNER HB URINE DRUG ABUSE PNL 8 STAT 04/19/2024 2:50 AM GENERAL DENTIST/OWNER EXTRA OTHER/MISC SPECIMEN 2 STAT 04/19/2024 2:50 AM GENERAL DENTIST/OWNER EXTRA BORIC ACID TUBE STAT 04/19/2024 2:50 AM GENERAL DENTIST/OWNER EXTRA OTHER/MISC SPECIMEN 1 STAT 04/19/2024 2:50 AM GENERAL DENTIST/OWNER CT MAXILLOFACIAL W/O CONTRAST ER-STAT 04/19/2024 12:16 AM GENERAL DENTIST/OWNER CT CERVICAL SPINE W/O CONTRAST ER-STAT 04/19/2024 12:16 AM GENERAL DENTIST/OWNER CT HEAD W/O CONTRAST ER-STAT 04/19/2024 12:16 AM GENERAL DENTIST/OWNER HB LACTIC ACID/LACTATE* STAT 04/19/2024 12:02 AM GENERAL DENTIST/OWNER ADD-ON TEST (SPECIMEN IN LAB) ER-STAT 04/18/2024 11:24 PM GENERAL DENTIST/OWNER HB ACETAMINOPHEN/TYLENOL ASSAY* STAT 04/18/2024 11:18 PM GENERAL DENTIST/OWNER HB SALICYLATE ASSAY* STAT 04/18/2024 11:18 PM GENERAL DENTIST/OWNER EXTRA SST TUBE 1 STAT 04/18/2024 11:1 8 PM GENERAL DENTIST/OWNER HB TROPONIN T STAT 04/18/2024 11:18 PM GENERAL DENTIST/OWNER HB BETA-HCG QUANT.* (P) STAT 04/18/2024 11:18 PM GENERAL DENTIST/OWNER HB PHOSPHORUS * STAT 04/18/2024 11:18 PM GENERAL DENTIST/OWNER HB MAGNESIUM * STAT 04/18/2024 11:18 PM GENERAL DENTIST/OWNER HB COMPREHENSIVE METABOLIC PANEL* STAT 04/18/2024 11:18 PM GENERAL DENTIST/OWNER ADD-ON TEST (SPECIMEN IN LAB) ER-STAT 04/18/2024 11:17 PM GENERAL DENTIST/OWNER EXTRA BLUE TUBE 1 STAT 04/18/2024 11: 17 PM GENERAL DENTIST/OWNER HB BLOOD SMEAR W/MAN DIFF WBC CT (P) STAT 04/18/2024 11:17 PM GENERAL DENTIST/OWNER HB SARS-COV-2 INFL A&B MULT AMP PRB TCHNQ STAT 04/18/2024 11:14 PM GENERAL DENTIST/OWNER HB BLOOD GAS,VENOUS* STAT 04/18/2024 11:11 PM GENERAL DENTIST/OWNER ORDER ROUTINE EKG Routine 04/18/2024 10: 52 PM GENERAL DENTIST/OWNER from Last 3 Months Results * (ABNORMAL) HEPATIC GROUP, BL (04/21/2024 6:06 AM GENERAL DENTIST/OWNER) Pathologist [facility] TOTAL PROTEIN 5.4(L) 6.0 - 8.3 g/dL [facility] ALBUMIN 3.4(L) 3.5 - 5.2 g/dL [facility] BILIRUBIN TOTAL 0.6 0.0 - 1.2 mg/dL [facility] BILIRUBIN DIRECT 0.3 0.0 - 0.4 mg/dL [facility] ALK PHOSPHATASE 73 35 - 104 U/L [facility] SGOT 71(H) 0 - 35 U/L [facility] SGPT 22 0 - 35 U/L [facility] 04/21/2024 6:06 AM GENERAL DENTIST/OWNER 04/21/2024 6:27 AM GENERAL DENTIST/OWNER us Heather Hutchinson APN-OUTSIDE LABORER LAB BLOOD Final Res ult [facility] [address] [place] [address] * (ABNORMAL) CBC W/O DIFFERENTIAL (04/21/2024 6:06 AM GENERAL DENTIST/OWNER) Pathologist [facility] WBC 5.7 4.0 - 10.0 10*3/uL [facility] RBC 3.48(L) 3.90 - 5.25 10*6/uL [facility] HEMOGLOBIN 12.4 12.0 - 16.0 g/dL [facility] HCT 34.7(L) 36.0 - 48.0 % [facility] MCV 99.7(H) 81.0 - 99.0 CU Microns [facility] MCH 35.6(H) 27.0 - 33.0 pg [facility] MCHC 35.7 32.5 - 36.5 g/dL [facility] RDW 14.2 11.6 - 14.8 % [facility] PLATELET COUNT 143(L) 150 - 400 10*3/uL [facility] ABSOLUTE NUCL RBC 0.0 0.0 - 0.0 10*3/uL [facility] NUCLEATED RBC% 0.0 0.0 - 0.0 % [facility] 04/21/2024 6:06 AM GENERAL DENTIST/OWNER 04/21/2024 6:28 AM GENERAL DENTIST/OWNER us Heather REDDYN-OUTSIDE LABORER LAB BLOOD Final Res ult Performing Organization Address [facility] Co de Phone Number [facility] [address] [place] [address] * PHOSPHORUS, BL (04/21/2024 6:06 AM GENERAL DENTIST/OWNER) PHOSPHORUS 2.8 2.5 - 4.5 mg/dL [facility] 04/21/2024 6:06 AM GENERAL DENTIST/OWNER 04/21/2024 6:27 AM GENERAL DENTIST/OWNER us Heather Hutchinson TOOL POLISHER-OUTSIDE LABORER LAB BLOOD Final Res ult Performing Organization Address [facility] Co de Phone Number [facility] [address] [place] [address] * MAGNESIUM, BL (04/21/2024 6:06 AM GENERAL DENTIST/OWNER) MAGNESIUM 2.0 1.7 - 2.2 mg/dL [facility] 04/21/2024 6:06 AM GENERAL DENTIST/OWNER 04/21/2024 6:27 AM GENERAL DENTIST/OWNER us Heather Hutchinson TOOL POLISHER-OUTSIDE LABORER LAB BLOOD Final Res ult Performing Organization Address [facility] de Phone Number [facility] [address] [place] [address] * (ABNORMAL) BASIC METABOLIC PANEL, BL (04/21/2024 6:06 AM GENERAL DENTIST/OWNER) GLUCOSE 102(H) 60 - 99 mg/dL [facility] SODIUM 141 133 - 145 meq/L [facility] POTASSIUM 3.5 3.5 - 5.3 meq/L [facility] CHLORIDE 108 98 - 108 meq/L [facility] CO2 23 22 - 29 meq/L [facility] ANION GAP 14 10 - 20 meq/L [facility] BUN 4(L) 6 - 20 mg/dL [facility] CREATININE, SERUM 0.5 0.5 - 0.9 mg/dL [facility] CALCIUM 8.0(L) 8.5 - 10.5 mg/dL [facility] GFR >60 [facility] Comment: Reference range for eGFR: >60 mL/min/1.73m(2) Estimated Glomerular Filtration Rate (eGFR) is calculated using the 2020 CKD-EPI creatinine equation. GFR reportable units are ml/min/1.73m(2). Note: eGFR results will not be calculated for patients <18 years old. 04/21/2024 6:06 AM GENERAL DENTIST/OWNER 04/21/2024 6:27 AM GENERAL DENTIST/OWNER us Heather REDDYN-OUTSIDE LABORER LAB BLOOD Final Res ult [facility] [address] [place] [address] * NSG NUTRITION ADMISSION SCREEN (04/20/2024 3:50 PM GENERAL DENTIST/OWNER) Narrative OFFICE PERFORMED LAB - 04/20/2024 3:50 PM GENERAL DENTIST/OWNER Miko Coulter 04/20/2024 3:55 PM Initial Nutrition [...] + Phos=8 mMole), 1 Tab, Oral, PC&HS, Concepcion Calle, DO, 1 Tab at 04/20/24 1233 ALPRAZolam Tab 1 mg, 1 mg, Oral, BIDPRN, Jasper, Heather, TOOL POLISHER-OUTSIDE LABORER, 1 mg at 04/19/24 2130 Sodium Chloride Flush Solution 10 mL (SODIUM CHLORIDE), 10 mL, Flush IV, Flush per Protocol, Jasper Heather, TOOL POLISHER-OUTSIDE LABORER NaCl 0.65% Solution 1 Pearcy (OCEAN), 1 Pearcy, Nasal, TIDPRN, Jasper, Heather, TOOL POLISHER-OUTSIDE LABORER Acetaminophen Tab 500 mg (TYLENOL EXTRA STRENGTH), 500 mg, Oral, Q6HPRN, Jasper, Heather, TOOL POLISHER-OUTSIDE LABORER, 500 mg at 04/20/24 1536 Ondansetron Solution 4 mg (Zofran), 4 mg, Intravenous, Q6HPRN, Jasper, Heather, TOOL POLISHER-OUTSIDE LABORER LevETIRAcetam IV Push 500 mg (KEPPRA), 500 mg, Intravenous, Now then q12hr, Savannah Camarillo PA-C, 500 mg at 04/20/24 1538 D5%W + 0.45% NaCl + KCl 20 mEq Solution, , Intravenous, Infusion, Concepcion Calle DO, Last Rate: 84 mL/hr at 04/20/24 0508, New Bag at 04/20/24 0508 Sodium Chloride Flush Solution 10 mL (SODIUM CHLORIDE), 10 mL, Flush IV, Flush per Protocol, Concepcion Calle DO, 10 mL at 04/20/24 0914 Thiamine [...] Coulter MS, RDN, LDN Clinical Dietitian Pager: [phone] us Gaurangi Alva DO NURSING - COMMUNICATION Final Result OFFICE PERFORMED LAB see department info below * US ABDOMEN LTD (04/20/2024 8:31 AM GENERAL DENTIST/OWNER) Anatomical Region Laterality Modality Abdomen Ultrasound 04/20/2024 8:39 AM GENERAL DENTIST/OWNER Impressions 04/20/2024 8:40 AM GENERAL DENTIST/OWNER IMPRESSION: Hepatic steatosis, otherwise unremarkable. Electronically Verified and Signed by Attending Radiologist: Dayo Toribio MD 04/20/2024 8:40 AM This exam was dictated at [facility]. Narrative 04/20/2024 8:40 AM GENERAL DENTIST/OWNER CLINICAL INDICATION: : elevated lft TECHNIQUE: Limited [...] 8:40 AM This exam was dictated at [facility]. us Concepcion Calle DO ULTRASOUND ORDERS Final Resul t * (ABNORMAL) CBC W/O DIFFERENTIAL (04/20/2024 6:57 AM GENERAL DENTIST/OWNER) WBC 7.9 4.0 - 10.0 10*3/uL [facility] RBC 3.65(L) 3.90 - 5.25 10*6/uL [facility] HEMOGLOBIN 12.8 12.0 - 16.0 g/dL [facility] HCT 35.1(L) 36.0 - 48.0 % [facility] MCV 97.2 81.0 - 99.0 CU Microns [facility] Comment:Result double-checke d MCH 35.1(H) 27.0 - 33.0 pg [facility] MCHC 36.5 32.5 - 36.5 g/dL [facility] RDW 14.0 11.6 - 14.8 % [facility] PLATELET COUNT 135(L) 150 - 400 10*3/uL [facility] ABSOLUTE NUCL RBC 0.0 0.0 - 0.0 10*3/uL [facility] NUCLEATED RBC% 0.0 0.0 - 0.0 % [facility] 04/20/2024 6:57 AM GENERAL DENTIST/OWNER 04/20/2024 7:05 AM GENERAL DENTIST/OWNER Heather Hutchinson APN-OUTSIDE LABORER LAB BLOOD Final Res ult [facility] [address] [place] [address] * (ABNORMAL) PHOSPHORUS, BL (04/20/2024 6:57 AM GENERAL DENTIST/OWNER) PHOSPHORUS 1.6(L) 2.5 - 4.5 mg/dL [facility] 04/20/2024 6:57 AM GENERAL DENTIST/OWNER 04/20/2024 7:05 AM GENERAL DENTIST/OWNER us Heather Hutchinson TOOL POLISHER-OUTSIDE LABORER LAB BLOOD Final Res ult Performing Organization Address [facility]/ZIP Co de Phone Number [facility] [address] [place] [address] * MAGNESIUM, BL (04/20/2024 6:57 AM GENERAL DENTIST/OWNER) MAGNESIUM 1.7 1.7 - 2.2 mg/dL [facility] 04/20/2024 6:57 AM GENERAL DENTIST/OWNER 04/20/2024 7:05 AM GENERAL DENTIST/OWNER us Heather REDDYN-OUTSIDE LABORER LAB BLOOD Final Res ult Performing Organization Address [facility] Co de Phone Number [facility] [address] [place] [address] * (ABNORMAL) BASIC METABOLIC PANEL, BL (04/20/2024 6:57 AM GENERAL DENTIST/OWNER) GLUCOSE 123(H) 60 - 99 mg/dL [facility] SODIUM 138 133 - 145 meq/L [facility] POTASSIUM 2.9(LL) 3.5 - 5.3 meq/L [facility] Comment:Critical value. CHLORIDE 106 98 - 108 meq/L [facility] CO2 22 22 - 29 meq/L [facility] ANION GAP 13 10 - 20 meq/L [facility] BUN 2(L) 6 - 20 mg/dL [facility] CREATININE, SERUM 0.4(L) 0.5 - 0.9 mg/dL [facility] CALCIUM 7.7(L) 8.5 - 10.5 mg/dL [facility] GFR >60 [facility] Comment: Reference range for eGFR: >60 mL/min/1.73m(2) Estimated Glomerular Filtration Rate (eGFR) is calculated using the 2020 CKD-EPI creatinine equation. GFR reportable units are ml/min/1.73m(2). Note: eGFR results will not be calculated for patients <18 years old. 04/20/2024 6:57 AM GENERAL DENTIST/OWNER 04/20/2024 7:05 AM GENERAL DENTIST/OWNER us Heather Hutchinson APN-OUTSIDE LABORER LAB BLOOD Edited Re sult - Final Performing Organization Address City/[facility]/[place] [address] * EXTRA BORIC ACID TUBE (04/19/2024 10:38 PM GENERAL DENTIST/OWNER) BORIC ACID EXTRA TUBE TUBE ON HOLD [facility] 04/19/2024 10:3 8 PM GENERAL DENTIST/OWNER 04/19/2024 10:38 PM GENERAL DENTIST/OWNER us Concepcion Kingtal DO LAB BLOOD Final Result Performing Organization Address [facility]/[place] [address] * (ABNORMAL) UA - MICROSCOPIC, UR (04/19/2024 10:27 PM GENERAL DENTIST/OWNER) UR SQUAMOUS EPITHELIAL 1+ NOT SIGNIFICANT /[LPF] [facility] UR HYALINE CAST 0-1 0 - 2 /[LPF] [facility] UR BACTERIA 1+(A) NEGATIVE [facility] Comment: SEE COMMENT Detection of bacteria can be present with urinary tract infection, specimen contamination or asymptomatic bacteriuria. Correlate clinically. UR RBC 0-4 0 - 4 /[HPF] [facility] UR WBC 0-5 0 - 5 /[HPF] [facility] 04/19/2024 10:2 7 PM GENERAL DENTIST/OWNER 04/19/2024 10:38 PM GENERAL DENTIST/OWNER us Gaurangi Alva DO LAB NON-BLOOD Final Result Performing Organization Address [facility]/ZIP Co de Phone Number [facility] [address] [place] [address] * (ABNORMAL) URINALYSIS (04/19/2024 10:27 PM GENERAL DENTIST/OWNER) COLOR YELLOW [facility] APPEARANCE CLEAR [facility] SPECIFIC GRAVITY 1.010 1.005 - 1.030 [facility] PH 6.5 5.0 - 8.0 [facility] PROTEIN NEGATIVE NEGATIVE [facility] GLUCOSE NEGATIVE NEGATIVE g/dL [facility] KETONES NEGATIVE NEGATIVE mg/dL [facility] BILIRUBIN, URINE NEGATIVE NEGATIVE [facility] BLOOD 1+(A) NEGATIVE [facility] NITRITE NEGATIVE NEGATIVE [facility] UROBILINOGEN 0.2 0.1 - 1.0 mg/dL [facility] LEUKOCYTE ESTERASE NEGATIVE NEGATIVE [facility] Urine clean catch 04/19/2024 10:27 PM GENERAL DENTIST/OWNER 04/19/2024 10:38 PM GENERAL DENTIST/OWNER [employer] LAB NON-BLOOD Final Result Performing Organization Address [facility] Co de Phone Number [facility] [address] [place] [address] * ORDER EEG (04/19/2024 2:56 PM GENERAL DENTIST/OWNER) Narrative OFFICE PERFORMED LAB - 04/19/2024 2:56 PM GENERAL DENTIST/OWNER Syed Marrero MD 04/19/2024 2:58 PM [facility] CLINICAL NEUROPHYSIOLOGY LABORATORY ELECTROENCEPHALOGRAM WITH VIDEO Patient Name: Barbi Rae Date of : 1990 Date of Service: 04/19/24 Type of test: Bedside A/D EEG ICD9: R56.9 Test #: [id number] Equipment: GBX1 Referring Physician: Savannah Camarillo Neurologist: Dr. Florinda Harrell Neurophysiologist: Dr. Syed Marrero Room/Bed: MARIIA: [facility] 10-E10 Clinical Information: 33YO right-handed female with past medical history of HTN, bipolar disorder, ADHD, anxiety who [facility] with complaints of LUE/LLE numbness and vomiting, [...] Flush per Protocol NaCl 0.65% Solution 1 Pearcy (OCEAN) TIDPRN Acetaminophen Tab 500 mg (TYLENOL [...] as needed. RECORDING CONDITIONS: A 17 channel [employer] digital electroencephalogram with silverware etcher was obtained. The 10-20 Measuring system was [...] a seizure disorder. Syed Marrero MD Neurophysiologist [facility] Department of Neurology us Savannah Camarillo PA-C EEG ORDERS Final Result OFFICE PERFORMED LAB see department info below * EXTRA SST TUBE 1 (04/19/2024 10:33 AM GENERAL DENTIST/OWNER) Pathologist [facility] SST EXTRA TUBE TUBE ON HOLD [facility] 04/19/2024 10:3 3 AM GENERAL DENTIST/OWNER 04/19/2024 10:33 AM GENERAL DENTIST/OWNER Heather Jasper TOOL POLISHER-OUTSIDE LABORER LAB BLOOD Final Res ult Performing Organization Address [facility] Co de Phone Number [facility] [address] [place] [address] * EXTRA BLUE TUBE 1 (04/19/2024 10:33 AM GENERAL DENTIST/OWNER) BLUE TOP EXTRA TUBE TUBE ON HOLD [facility] 04/19/2024 10:3 3 AM GENERAL DENTIST/OWNER 04/19/2024 10:33 AM GENERAL DENTIST/OWNER Heather Jasper TOOL POLISHER-OUTSIDE LABORER LAB BLOOD Final Res ult Performing Organization Address [facility] de Phone Number [facility] [address] [place] [address] * (ABNORMAL) COMP METABOLIC PANEL, BL (04/19/2024 10:33 AM GENERAL DENTIST/OWNER) [facility] GLUCOSE 91 60 - 99 mg/dL [facility] SODIUM 139 133 - 145 meq/L [facility] POTASSIUM 2.7(LL) 3.5 - 5.3 meq/L [facility] Comment:Critical value. Spec imen analyzed in duplicate CHLORIDE 105 98 - 108 meq/L [facility] CO2 21(L) 22 - 29 meq/L [facility] ANION GAP 16 10 - 20 meq/L [facility] BUN 6 6 - 20 mg/dL [facility] CREATININE, SERUM 0.5 0.5 - 0.9 mg/dL [facility] TOTAL PROTEIN 5.9(L) 6.0 - 8.3 g/dL [facility] ALBUMIN 3.7 3.5 - 5.2 g/dL [facility] CALCIUM 7.3(L) 8.5 - 10.5 mg/dL [facility] BILIRUBIN TOTAL 1.5(H) 0.0 - 1.2 mg/dL [facility] ALK PHOSPHATASE 73 35 - 104 U/L [facility] SGOT 86(H) 0 - 35 U/L [facility] SGPT 21 0 - 35 U/L [facility] GFR >60 [facility] Comment: Reference range for eGFR: >60 mL/min/1.73m(2) Estimated Glomerular Filtration Rate (eGFR) is calculated using the 2020 CKD-EPI creatinine equation. GFR reportable units are ml/min/1.73m(2). Note: eGFR results will not be calculated for patients <18 years old. 04/19/2024 10:3 3 AM GENERAL DENTIST/OWNER 04/19/2024 10:33 AM GENERAL DENTIST/OWNER us Heather Hutchinson APN-OUTSIDE LABORER LAB BLOOD Edited Re sult - Final [facility] [address] [place] [address] * (ABNORMAL) CBC-W DIFFERENTIAL (04/19/2024 10:33 AM GENERAL DENTIST/OWNER) WBC 8.0 4.0 - 10.0 10*3/uL [facility] RBC 3.47(L) 3.90 - 5.25 10*6/uL [facility] HEMOGLOBIN 12.4 12.0 - 16.0 g/dL [facility] HCT 34.9(L) 36.0 - 48.0 % [facility] MCV 100.6(H) 81.0 - 99.0 CU Microns [facility] MCH 35.7(H) 27.0 - 33.0 pg [facility] MCHC 35.5 32.5 - 36.5 g/dL [facility] RDW 14.2 11.6 - 14.8 % [facility] PLATELET COUNT 150 150 - 400 10*3/uL [facility] Comment:Result double-checke d ABSOLUTE NUCL RBC 0.0 0.0 - 0.0 10*3/uL [facility] NUCLEATED RBC% 0.0 0.0 - 0.0 % [facility] ABSOLUTE NEUT 6.7 1.5 - 8.0 10*3/uL [facility] ABSOLUTE LYMPH 0.7(L) 1.0 - 4.0 10*3/uL [facility] ABSOLUTE MONO 0.6 0.1 - 0.7 10*3/uL [facility] ABSOLUTE EOS 0.0 0.0 - 0.6 10*3/uL [facility] ABSOLUTE BASO 0.0 0.0 - 0.2 10*3/uL [facility] ABSOLUTE IMM GRAN 0.0 0.0 - 0.1 10*3/uL [facility] NEUT% 83.6(H) 40.0 - 74.0 % [facility] LYMPH% 8.3(L) 12.0 - 40.0 % [facility] MONO% 7.0 4.0 - 12.0 % [facility] EOSIN% 0.3 0.0 - 8.0 % [facility] BASO% 0.4 0.0 - 2.0 % [facility] IMM GRAN% 0.4 0.0 - 1.1 % [facility] MDIFF COMMENT SEE COMMENT [facility] Comment:Automated Differenti al performed 04/19/2024 10:3 3 AM GENERAL DENTIST/OWNER 04/19/2024 10:33 AM GENERAL DENTIST/OWNER us Heather Hutchinson APNOUTSIDE LABORER LAB BLOOD Final Res ult Performing Organization Address [facility]/ZIP Co de Phone Number [facility] [address] [place] [address] * MAGNESIUM, BL (04/19/2024 10:33 AM GENERAL DENTIST/OWNER) MAGNESIUM 1.8 1.7 - 2.2 mg/dL [facility] 04/19/2024 10:3 3 AM GENERAL DENTIST/OWNER 04/19/2024 10:33 AM GENERAL DENTIST/OWNER us Heather Hutchinson APN-OUTSIDE LABORER LAB BLOOD Final Res ult Performing Organization Address City/[facility]/ZIP Co de Phone Number [facility] [address] [place] [address] * MRI BRAIN W & W/O CONTRAST (04/19/2024 9:01 AM GENERAL DENTIST/OWNER) Anatomical Region Laterality Modality Head and Neck Magnetic Resonan ce 04/19/2024 9:09 AM GENERAL DENTIST/OWNER Impressions 04/19/2024 9:30 AM GENERAL DENTIST/OWNER IMPRESSION: 1. No acute infarct, intracranial mass, or evidence of mesial temporal sclerosis. 2. A couple punctate foci of nonspecific T2 prolongation in the supratentorial white matter are present. Electronically Verified and Signed by Attending Radiologist: Erich Tyler MD 04/19/2024 9:30 AM This exam was dictated within [facility]. Narrative 04/19/2024 9:30 AM GENERAL DENTIST/OWNER CLINICAL HISTORY: SEIZURES FALL FACIAL INJURY TECHNIQUE: [...] acute infarct. A couple punctate foci of [id number] in the supratentorial white matter are present, [...] 9:30 AM This exam was dictated within [facility]. us Orestes Mortensen MD MAGNETIC RESONANCE IMAGIN G ORDERS Final Result * EXTRA BORIC ACID TUBE (04/19/2024 2:50 AM GENERAL DENTIST/OWNER) BORIC ACID EXTRA TUBE TUBE ON HOLD [facility] Urine 04/19/2024 2:50 AM GENERAL DENTIST/OWNER 04/19/2024 2:56 AM GENERAL DENTIST/OWNER us Orestes Mortensen MD LAB [place] [address] * (ABNORMAL) SENS-DRUG ABUSE SCREEN URINE 8 PANEL WITHOUT CONFIRMATION (04/19/2024 2:50 AM GENERAL DENTIST/OWNER) MARIJUANA SCRN, UR W/O CONF Negative [facility] Comment:Assay cutoff 50 ng/m L COCAINE MET SCRN, UR W/O CONF Negative [facility] Comment:Assay cutoff 300 ng/ mL AMPHETAMINE SCRN, UR W/O CONF PRESUMPTIVE POS(A) [facility] Comment:Assay cutoff 1000 ng /mL BARBITURATE SCRN, UR W/O CONF Negative [facility] Comment:Assay cutoff 200 ng/ mL OPIATE SCRN, UR W/O CONF Negative [facility] Comment:Assay cutoff 300 ng/ mL METHADONE SCRN, UR W/O CONF Negative [facility] Comment:Assay cutoff 300 ng/ mL BENZODIAZEPINE SCRN, UR W/O CONF PRESUMPTIVE POS(A) [facility] Comment:Assay cutoff 200 ng/ mL PHENCYCLIDINE SCRN, UR W/O CONF Negative [facility] Comment: Assay cutoff 25 ng/mL This is unconfirmed testing and may only be used for medical purposes 04/19/2024 2:50 AM GENERAL DENTIST/OWNER 04/19/2024 5:43 AM GENERAL DENTIST/OWNER us Orestes Mortensen MD LAB NON-BLOOD Final Res ult Performing Organization Address [facility] Co de Phone Number [facility] [address] [place] [address] * EXTRA OTHER/MISC SPECIMEN 2 (04/19/2024 2:50 AM GENERAL DENTIST/OWNER) OTHER EXTRA SPECIMEN OTHER ON HOLD [facility] 04/19/2024 2:50 AM GENERAL DENTIST/OWNER 04/19/2024 2:57 AM GENERAL DENTIST/OWNER us Orestes Mortensen MD LAB BLOOD Final Res ult Performing Organization Address [facility] Co de Phone Number [address] [address] * EXTRA OTHER/MISC SPECIMEN 1 (04/19/2024 2:50 AM GENERAL DENTIST/OWNER) OTHER EXTRA SPECIMEN OTHER ON HOLD [facility] 04/19/2024 2:50 AM GENERAL DENTIST/OWNER 04/19/2024 2:57 AM GENERAL DENTIST/OWNER us Orestes Mortensen MD LAB BLOOD Final Res ult Performing Organization Address [facility] de Phone Number [address] [address] * CT MAXILLOFACIAL W/O CONTRAST (04/19/2024 12:16 AM GENERAL DENTIST/OWNER) Anatomical Region Laterality Modality Head Computed Tomogra phy 04/19/2024 12:2 2 AM GENERAL DENTIST/OWNER Impressions 04/19/2024 12:24 AM GENERAL DENTIST/OWNER IMPRESSION: Minimally displaced nasal bone fractures with adjacent soft tissue swelling. Electronically Verified and Signed by Attending Radiologist: Buddy Ling MD 04/19/2024 12:24 AM This exam was dictated within [facility]. Narrative 04/19/2024 12:24 AM GENERAL DENTIST/OWNER EXAM: CT MAXILLOFACIAL W/O CONTRAST CLINICAL INDICATION: [...] 12:24 AM This exam was dictated within [facility]. Orestes Mortensen MD CAT SCAN Final Res ult * CT CERVICAL SPINE W/O CONTRAST (04/19/2024 12:16 AM GENERAL DENTIST/OWNER) Anatomical Region Laterality Modality Neck Computed Tomogra phy 04/19/2024 12:1 9 AM GENERAL DENTIST/OWNER Impressions 04/19/2024 12:22 AM GENERAL DENTIST/OWNER IMPRESSION: No evidence of acute cervical spine fracture. Electronically Verified and Signed by Attending Radiologist: Buddy Ling MD 04/19/2024 12:22 AM This exam was dictated within [facility]. Narrative 04/19/2024 12:22 AM GENERAL DENTIST/OWNER EXAM: CT CERVICAL SPINE W/O CONTRAST CLINICAL [...] 12:22 AM This exam was dictated within [facility]. us Orestes Mortensen MD CAT SCAN Final Res ult * CT HEAD W/O CONTRAST (04/19/2024 12:16 AM GENERAL DENTIST/OWNER) Anatomical Region Laterality Modality Head Computed Tomogra phy 04/18/2024 11:5 8 PM GENERAL DENTIST/OWNER Impressions 04/19/2024 12:19 AM GENERAL DENTIST/OWNER IMPRESSION: 1. No acute intracranial abnormality is identified by unenhanced CT. 2. Maxillofacial findings are reported separately in the maxillofacial CT. Electronically Verified and Signed by Attending Radiologist: Buddy Ling MD 04/19/2024 12:19 AM This exam was dictated within [facility]. Narrative 04/19/2024 12:19 AM GENERAL DENTIST/OWNER EXAM: CT HEAD W/O CONTRAST CLINICAL INDICATION: [...] 12:19 AM This exam was dictated within [facility]. Orestes Mortensen MD CAT SCAN Final Res ult * LACTIC ACID, BL (04/19/2024 12:02 AM GENERAL DENTIST/OWNER) LACTIC ACID 1.7 0.5 - 2.0 mmol/L [facility] 04/19/2024 12:0 2 AM GENERAL DENTIST/OWNER 04/19/2024 12:14 AM GENERAL DENTIST/OWNER Orestes Mortensen MD LAB BLOOD Final Res ult Performing Organization Address City/[facility]/[place] [address] * TROPONIN T, HIGH SENSITIVITY (NS LEGACY PERFORMED) (04/18/2024 11:18 PM GENERAL DENTIST/OWNER) TROPONIN T, HIGH SENSITIVITY <6 0 - 13 ng/L [facility] 04/18/2024 11:1 8 PM GENERAL DENTIST/OWNER 04/18/2024 11:18 PM GENERAL DENTIST/OWNER Orestes Mortensen MD LAB BLOOD Final Res ult Performing Organization Address [facility] Co de Phone Number [facility] [address] [place] [address] * EXTRA SST TUBE 1 (04/18/2024 11:18 PM GENERAL DENTIST/OWNER) SST EXTRA TUBE TUBE ON HOLD [facility] 04/18/2024 11:1 8 PM GENERAL DENTIST/OWNER 04/18/2024 11:18 PM GENERAL DENTIST/OWNER Orestes Mortensen MD LAB BLOOD Final Res ult [facility] [address] [place] [address] * (ABNORMAL) COMP METABOLIC PANEL, BL (04/18/2024 11:18 PM GENERAL DENTIST/OWNER) GLUCOSE 184(H) 60 - 99 mg/dL [facility] SODIUM 144 133 - 145 meq/L [facility] POTASSIUM 2.4(LL) 3.5 - 5.3 meq/L [facility] Comment:Critical value. Spec imen analyzed in duplicate CHLORIDE 101 98 - 108 meq/L [facility] CO2 15(L) 22 - 29 meq/L [facility] ANION GAP 30(H) 10 - 20 meq/L [facility] BUN 11 6 - 20 mg/dL [facility] CREATININE, SERUM 0.6 0.5 - 0.9 mg/dL [facility] TOTAL PROTEIN 7.0 6.0 - 8.3 g/dL [facility] ALBUMIN 4.4 3.5 - 5.2 g/dL [facility] CALCIUM 8.5 8.5 - 10.5 mg/dL [facility] BILIRUBIN TOTAL 2.1(H) 0.0 - 1.2 mg/dL [facility] ALK PHOSPHATASE 95 35 - 104 U/L [facility] SGOT 154(H) 0 - 35 U/L [facility] SGPT 30 0 - 35 U/L [facility] GFR >60 [facility] Comment: Reference range for eGFR: >60 mL/min/1.73m(2) Estimated Glomerular Filtration Rate (eGFR) is calculated using the 2020 CKD-EPI creatinine equation. GFR reportable units are ml/min/1.73m(2). Note: eGFR results will not be calculated for patients <18 years old. 04/18/2024 11:1 8 PM GENERAL DENTIST/OWNER 04/18/2024 11:18 PM GENERAL DENTIST/OWNER us Orestes Mortensen MD LAB BLOOD Edited Re sult - Final Performing Organization Address [facility]/ZIP Co de Phone Number [address] [address] * BETA-HCG QUANT., BL (04/18/2024 11:18 PM GENERAL DENTIST/OWNER) BETA HCG QUANT <1 m[IU]/mL [facility] Comment: Beta hCG reference ranges: Male <2 [...] - 60,000 mIU/mL 04/18/2024 11:1 8 PM GENERAL DENTIST/OWNER 04/18/2024 11:18 PM GENERAL DENTIST/OWNER us Orestes Mortensen MD LAB BLOOD Final Res ult Performing Organization Address [facility] Co de Phone Number [address] [address] * PHOSPHORUS, BL (04/18/2024 11:18 PM GENERAL DENTIST/OWNER) PHOSPHORUS 4.1 2.5 - 4.5 mg/dL [facility] 04/18/2024 11:1 8 PM GENERAL DENTIST/OWNER 04/18/2024 11:18 PM GENERAL DENTIST/OWNER us Orestes Mortensen MD LAB BLOOD Final Res ult Performing Organization Address City/[facility]/ZIP Co de Phone Number [address] [place] [address] * (ABNORMAL) MAGNESIUM, BL (04/18/2024 11:18 PM GENERAL DENTIST/OWNER) MAGNESIUM 1.2(L) 1.7 - 2.2 mg/dL [facility] 04/18/2024 11:1 8 PM GENERAL DENTIST/OWNER 04/18/2024 11:18 PM GENERAL DENTIST/OWNER us Orestes Mortensen MD LAB BLOOD Final Res ult Performing Organization Address [facility]/ZIP Co de Phone Number [facility] [address] [place] [address] * ACETAMINOPHEN, BL (04/18/2024 11:18 PM GENERAL DENTIST/OWNER) ACETAMINOPHEN <5.0 10.0 - 20.0 ug/mL [facility] 04/18/2024 11:1 8 PM GENERAL DENTIST/OWNER 04/18/2024 11:18 PM GENERAL DENTIST/OWNER us Orestes Mortensen MD LAB BLOOD Final Res ult Performing Organization Address [facility] Co de Phone Number [facility] [address] [place] [address] * SALICYLATE, BL (04/18/2024 11:18 PM GENERAL DENTIST/OWNER) SALICYLATES <3 30 - 100 ug/mL [facility] Comment: Salicylate Reference Ranges: Analgesic 30 - 100 ug/mL Anti-inflammatory 150 - 300 ug/mL Toxic > 300 ug/mL Lethal > 600 ug/mL 04/18/2024 11:1 8 PM GENERAL DENTIST/OWNER 04/18/2024 11:18 PM GENERAL DENTIST/OWNER us Orestes Mortensen MD LAB BLOOD Final Res ult Performing Organization Address [facility]/ZIP Co de Phone Number [facility] [address] [place] [address] * EXTRA BLUE TUBE 1 (04/18/2024 11:17 PM GENERAL DENTIST/OWNER) BLUE TOP EXTRA TUBE TUBE ON HOLD [facility] 04/18/2024 11:1 7 PM GENERAL DENTIST/OWNER 04/18/2024 11:17 PM GENERAL DENTIST/OWNER us Orestes Mortensen MD LAB BLOOD Final Res ult [facility] [address] [place] [address] * (ABNORMAL) CBC-W DIFFERENTIAL (04/18/2024 11:17 PM GENERAL DENTIST/OWNER) WBC 16.0(H) 4.0 - 10.0 10*3/[facility] RBC 4.32 3.90 - 5.25 10*6/uL [facility] HEMOGLOBIN 15.4 12.0 - 16.0 g/dL [facility] HCT 43.5 36.0 - 48.0 % [facility] MCV 100.7(H) 81.0 - 99.0 CU Microns [facility] MCH 35.6(H) 27.0 - 33.0 pg [facility] MCHC 35.4 32.5 - 36.5 g/dL [facility] RDW 14.2 11.6 - 14.8 % [facility] PLATELET COUNT 187 150 - 400 10*3/[facility] ABSOLUTE NUCL RBC 0.0 0.0 - 0.0 10*3/[facility] NUCLEATED RBC% 0.0 0.0 - 0.0 % [facility] ABSOLUTE NEUT 13.1(H) 1.5 - 8.0 10*3/[facility] ABSOLUTE LYMPH 1.6 1.0 - 4.0 10*3[facility] ABSOLUTE MONO 1.1(H) 0.1 - 0.7 10*3[facility] ABSOLUTE EOS 0.0 0.0 - 0.6 10*3[facility] ABSOLUTE BASO 0.1 0.0 - 0.2 10*3[facility] ABSOLUTE IMM GRAN 0.1 0.0 - 0.1 10*3/[facility] NEUT% 81.6(H) 40.0 - 74.0 % [facility] LYMPH% 10.3(L) 12.0 - 40.0 % [facility] MONO% 7.1 4.0 - 12.0 % [facility] EOSIN% 0.3 0.0 - 8.0 % [facility] BASO% 0.4 0.0 - 2.0 % [facility] IMM GRAN% 0.3 0.0 - 1.1 % [facility] MDIFF COMMENT SEE COMMENT [facility] Comment:Automated Differenti al performed 04/18/2024 11:1 7 PM GENERAL DENTIST/OWNER 04/18/2024 11:17 PM GENERAL DENTIST/OWNER us Orestes Mortensen MD LAB BLOOD Final Res ult Performing Organization Address [facility] [place] [address] * COVID-19 INFLUENZA A/B FIDENCIO PCR (04/18/2024 11:14 PM GENERAL DENTIST/OWNER) [facility] COVID-19 INFLU A/B SPECIMEN SOURCE NASOPHARYNGEAL [facility] COVID-19 CORONAVIRUS PCR Not Detected NOT DETECTED [facility] INFLUENZA A Not Detected NOT DETECTED [facility] INFLUENZA B Not Detected NOT DETECTED [facility] Comment: Testing performed using a PCR assay. Test performed at: [place] [address] Bhumika Minor M.D., Ph.D. Channel Marketing Manager [facility] # [id number] NASOPHARYNGEAL SWAB / Unknown 04/18/2024 11:14 PM GENERAL DENTIST/OWNER 04/18/2024 11:14 PM GENERAL DENTIST/OWNER us Orestes Mortensen MD MICROBIOLOGY Final Res ult Performing Organization Address [facility] [place] [address] * (ABNORMAL) VENOUS BLOOD GAS (04/18/2024 11:11 PM GENERAL DENTIST/OWNER) Pathologist [facility] VENOUS PH BLOOD 7.23(L) 7.31 - 7.42 [facility] VENOUS PCO2 41.7 41.0 - 51.0 mm[Hg] [facility] VENOUS PO2 79.5(H) 20.0 - 50.0 mm[Hg] [facility] VENOUS HCO3 16.8(L) 22.0 - 28.0 meq/L [facility] VEN[facility] TOTAL CO2 18.0(L) 23.0 - 29.0 meq/L [facility] VENOUS BASE EXCESS -10.2(L) -2.0 - 2.0 meq/L [facility] VENOUS O2 SATURATION 92.3(H) 60.0 - 85.0 % [facility] VENOUS O2 CONTENT 19.2 % [facility] OXYHEMOGLOBIN, VENOUS 89.3(H) 60.0 - 85.0 % [facility] 04/18/2024 11:1 1 PM GENERAL DENTIST/OWNER 04/18/2024 11:11 PM GENERAL DENTIST/OWNER Orestes Mortensen MD LAB BLOOD Final Res ult [facility] [address] [place] [address] * (ABNORMAL) ORDER ROUTINE EKG (04/18/2024 10:52 PM GENERAL DENTIST/OWNER) Systolic Blood Pressure mmHg [facility] Diastolic Blood Pressure mmHg [facility] Ventricular Rate 103 BPM [facility] Atrial Rate 103 BPM [facility] P-R Interval [address] [facility] QRS Duration [address] [facility] QT 358 ms [facility] QTC Calculation(Be zet) 468 ms [facility] P [place] 54 degrees [facility] R [place] 52 degrees [facility] T [place] 268 degrees [facility] Text Sinus tachycardia with short MI ST & T wave abnormality, consider inferior ischemia ST & T wave abnormality, consider anterolateral ischemia Abnormal ECG No previous ECGs available Confirmed by Moarima Thomas MD ([id number]) on 04/20/2024 10:00:53 PM (A) [facility] 04/18/2024 10:5 2 PM GENERAL DENTIST/OWNER 04/20/2024 10:00 PM GENERAL DENTIST/OWNER Orestes Mortensen MD EKG ORDERS Final Res ult [facility] [address] [place] [address] from Last 3 Months Insurance [facility] PPO Advance Directives For more information, please contact: [phone] * Full Code (Latest Code Status on File) Date Activated Date Inactivated Comments 04/19/2024 11:05 AM If patient is pulseless, breathless, attempt CPR. Care Teams Recreation Technician Relationship Specialty Start Date End Date Physician, No Pcp, PCP - General 06/17/20
--- OUTSIDE RECORDS SUMMARY | 2024-06-10 21:52 | XMS_ITS ---
Author Organization [facility] Address [address] [place], [place] [id number] Care Team Providers Care Beam Department Supervisor Name Role Phone Eder MATT, Dr Floyd Primary Care Provider Un available Perry Suárez Unavailable [phone] REASON FOR VISIT Subcutaneous mass removal Encounters Encounter Location Date Provider Diagnosis [facility] [address], [address] [place], [place] [id number] 01/04/2024 Perry Suárez Localized swelling, mass and lump, right lower limb R22.41 Assessments Encounter Date Diagnosis (ICD Code) Assessment Notes Treatment Notes Treatment Clinical Notes Section Notes 01/04/2024 Localized swelling, mass and lump, right lower limb (ICD-10 - R22.41) Plan Of Treatment Next Appt Details Follow Up: prn, Reason: Progress Notes * Nery RAEaDOB:[birth year] (33 yo F)Acc No.[id number]:01/04/2024 Patient: Barbi MATA Provider: Hina Suárez MD :1990 A ge:33 Y S ex:Female Date:01/04/2024 Address:[address] [place] [address], [address] Pcp:Dr Everett Gaines MD Subjective: * Chief Complaints: * S ubcutaneous mass removal * Medical History: * Surgical History: * Hospitalization/Major Diagno stic Procedure: * Medications: Objective: * Vitals: Assessment: * Assessment: 1. L ocalized swelling, mass and lump, right lower limb - R22.41 (Primary) Plan: * Treatment: * Procedures: after informed consent was obtained the area overlying the mass in the right lower extremity was prepped and draped in the usual sterile fashion. Local anesthetic was administered in the skin and soft tissues. A transverse incision was made. The soft tissue mass which measured approximately 2.2 cm in diameter was then removed from the subcutaneous tissues. Hemostasis was achieved with direct pressure. The overlying incision was closed with subcuticular Vicryl suture. Appropriate dressings were placed. The patient tolerated the procedure well. * Procedure Codes: 1 1403 EXC TR-EXT B9 ESTIVEN 2.1-3 CM * Follow Up: p rn * * NE EQUIPMENT ENGINEER Sign off status: Completed true * Provider: Hina Suárez MD Date: 03/05/2023 Generated for Rashmi charles/Adina/Jesiitting on: 0 06/10/2024 09:51 PM CDT
--- OUTSIDE RECORDS SUMMARY | 2024-06-10 21:52 | XMS_ITS | Encounter Summary ---
Author Organization [facility] Address [address] [place] [address] Care Team Providers Care Chairman Ceo Name Role Phone Physician, No Pcp MD Primary Care Provider Unava ilable Reason for Visit * Reason Onset Date Comments Letter 05/12/2024 Encounter Details Date Type Department Care Team ([facility] st Contact Info) Description 05/12/2024 [facility] Me d Advice Neurology [facility] [address] [address] [place], [place] [id number] Lucie Choi MD [address] [place] [address] [email or web address] Social History Tobacco Use Types Packs/Day Years [...] on file Legal Sex Female 9:25 AM VISOR INSTALLER Gender Identity Not on file Sexual Orientation Not on file documented as of this encounter Functional Status * Are you deaf or do you have serious difficulty hearing? Answer Date of Assessment Author No 04/19/2024 3:58 PM VISOR INSTALLER Jj Yap RN * Are you blind or do you have serious difficulty seeing, even when wearing glasses? Answer Date of Assessment Author No 04/19/2024 3:58 PM Jj Dennis RN * Do you have serious difficulty walking or climbing stairs? (5 years old or older) Answer Date of Assessment Author No 04/19/2024 3:58 PM Jj Dennis RN * Do you have difficulty dressing or bathing? (5 years old or older) Answer Date of Assessment Author No 04/19/2024 3:58 PM Jj Dennis RN * Because of a physical, mental, or emotional condition, do you have difficulty doing errands alone such as visiting a doctor???s office or shopping? (15 years old or older) Answer Date of Assessment Author No 04/19/2024 3:58 PM Jj Dennis RN documented as of this encounter Mental Status * Because of a physical, mental, or emotional condition, do you have serious difficulty concentrating, remembering, or making decisions? (5 years old or older) Answer Entry Date Author No 04/19/2024 3:58 PM Jj Dennis RN documented in this encounter Miscellaneous Notes * Telephone Encounter - Soraya Howell RN - 05/12/2024 3:42 PM CDT New letter pended for Dr Choi. documented in this encounter Plan of Treatment Not on file documented as of this encounter Visit Diagnoses Not on filedocumented in this encounter Care Teams Chairman Ceo Relationship Specialty Start Date End Date Physician, Hortensia PcpMD PCP - General 06/17/20 documented as of this encounter
--- OUTSIDE RECORDS SUMMARY | 2024-06-10 21:52 | XMS_ITS | Clinical Summary ---
Author Organization [facility] Address [address] [address] Care Team Providers Care Garage Helper Name Role Phone Unavailable Primary Care Provider Unavailabl e Social History Tobacco Use Types Packs/Day Years Used Date Smoking Tobacco: Never Assessed Comments Unknown Sex and Gender Information Value Date Recorded Sex Assigned at Not on file Legal Sex Female 10:20 AM CDT Gender Identity Not on file Sexual Orientation Not on file Plan of Treatment Health Maintenance Due Date Last Done Comments CERVICAL CANCER SCREENING 1990 HEPATITIS C SCREENING 1988 TDAP/TD VACCINE (1 - Tdap) 09/24/1999 DEPRESSION SCREENING 2000 HIV SCREENING 09/24/2003 COVID-19 VACCINE ( - 2023-2 5 season) 2023 INFLUENZA VACCINE (Season Ended) 2024 ZOSTER SERIES VACCINE (1 of 2) 2038 Adult RSV VACCINE (1 - 1-dos e 75+ series) 09/24/2063 Pneumococcal Vaccine: Childh ood and At-Risk Adult <65 yo Series Aged Out No longe r eligible based on patient's age to complete this topic
--- OUTSIDE RECORDS SUMMARY | 2024-06-10 21:52 | XMS_ITS | Referral Summary ---
Author Organization [facility] Address [address] [place] [address] Care Team Providers Care Film Producer Name Role Phone Ginny Moreira MD Primary Care Provider [phone] Allergies Active Allergy Reactions Criticality Noted Date Comments Amoxicillin-Pot Clavulanate RASH 06/17/2016 Bactrim Ds SWELLING Medium 09/02/2022 Bupropion Other (See Comments) 12/03/2021 Unclear syncope vs seizure- either way reports not to take Clindamycin RASH 12/17/2015 Erythromycin Other (See Comments) 02/21/2015 Sulfamethoxazole W/Trimethoprim SWELLING High 04/27/2020 Medications amphetamine-dext roamphetamine (ADDERALL) 30 MG tablet Take 30 mg by mouth 2 times daily. 01/09/2020 Active ALPRAZolam (XANAX) 1 MG tablet Take 1 mg by mouth 2 times daily as needed. 01/09/2020 Active amitriptyline (ELAVIL) 10 MG tablet Take 10 mg by mouth at bedtime. 02/01/2023 Active Active Problems No known active problems Social History Tobacco Use Types Packs/Day Years Used Date Smoking Tobacco: Never Smokeless Tobacco: Never Tobacco Cessation:Counseling Given: Not Answered Alcohol Use Standard Drinks/Week Comments Yes 6 (1 standard drink = 0.6 oz pure alcohol) admits to 6 beverages in a week Inadequate Housing Answer Date Recorded Social Determinants: Housing (Overall Score Help er) 0 03/02/2023 Sexually Active Control Partners Comments Not Currently Comments Unknown Sex and Gender Information Value Date Recorded Sex Assigned at Not on file Legal Sex Female 8:41 AM CDT Gender Identity Not on file Sexual Orientation Not on file Last Filed Vital Signs Vital Sign Reading Time Taken Comments Blood Pressure 130/90 03/02/2023 6:10 PM RETAIL CH[employer] STORE AREA SUPERVISOR Pulse 110 03/02/2023 6:01 PM RETAIL CHAIN STORE AREA SUPERVISOR Temperature 36.6 C (97.8 F) 03/02/2023 6:01 PM RETAIL CHAIN STORE AREA SUPERVISOR Respiratory Rate 16 03/02/2023 6:01 PM RETAIL CHAIN STORE AREA SUPERVISOR Oxygen Saturation 99% 03/02/2023 6:01 PM RETAIL CHAIN STORE AREA SUPERVISOR Inhaled Oxygen Concentration - - Weight 67.8 kg (149 lb 7.6 oz) 03/02/2023 6:01 P M RETAIL CHAIN STORE AREA SUPERVISOR Height 149.9 cm (4' 11 ) 03/02/2023 6:01 PM RETAIL CHAIN STORE AREA SUPERVISOR Body Mass Index 30.19 03/02/2023 6:01 PM RETAIL CHAIN STORE AREA SUPERVISOR Plan of Treatment Not on file Insurance [facility] Address[facility] [id number] [place] [phone] [facility] Care Teams Film Producer Relationship Specialty Start Date End Date Ginny Moreira MD [address] [place] [address] PCP - General Family Practice 03/02/23
--- OUTSIDE RECORDS SUMMARY | 2024-06-10 21:52 | XMS_ITS | Clinical Summary ---
Author Organization [facility] Address [address] [place] [id number] Care Team Providers Care Crown Blocker Name Role Phone Ginny Moreira MD Primary Care Provider [phone] Allergies Active Allergy Reactions Criticality Noted Date [...] Active Active Problems No known active problems Surgical History Surgery Date Site/Laterality Comments TONSILLECTOMY Medical History Medical History Date Comments Anxiety Adhd Interstitial cystitis Family History Relation Status Comments Father Alive Mother Alive Social History Tobacco Use Types Packs/Day Years [...] on file Sexual Orientation Not on file Obstetrics History Last Filed Vital Signs Vital Sign Reading Time Taken Comments Blood Pressure 130/90 03/02/2023 6:10 PM MATERIAL MANAGER Pulse 110 03/02/2023 6:01 PM MATERIAL MANAGER Temperature 36.6 C (97.8 F) 03/02/2023 6:01 PM MATERIAL MANAGER Respiratory Rate 16 03/02/2023 6:01 PM MATERIAL MANAGER Oxygen Saturation 99% 03/02/2023 6:01 PM MATERIAL MANAGER Inhaled Oxygen Concentration - - Weight 67.8 kg (149 lb 7.6 oz) 03/02/2023 6:01 P M MATERIAL MANAGER Height 149.9 cm (4' 11 ) 03/02/2023 6:01 PM MATERIAL MANAGER Body Mass Index 30.19 03/02/2023 6:01 PM MATERIAL MANAGER Plan of Treatment Health Maintenance Due Date Last Done Comments Depression Screening 2000 Varicella Vaccine (1 of 2 - 13+ 2-dose series) 2001 Hepatitis B Vaccine (1 of 3 - 19+ 3-dose series) 09/24/2007 Pap Smear 2009 Cervical Cancer Screening 2018 HPV/Cotest 2018 COVID-19 Vaccine (3 - 2023-2 5 season) 2023 07/29/2020, 07/05/2020 Influenza Vaccine (Season Ended) 2024 DTaP/Tdap/Td Vaccine (3 - Td or Tdap) 02/04/2029 02/04/2019, 12/15/2011 HPV Vaccine Aged Out No longer eligi ble based on patient's age to complete this topic Hepatitis A Vaccine Aged Out No longe r eligible based on patient's age to complete this topic Meningococcal Serogroup B Vaccine Aged Out No longer eligible b ased on patient's age to complete this topic Meningococcal Vaccine Aged Out No ty mario eligible based on patient's age to complete this topic Pneumococcal Vaccine 0-49 Aged Out No longer eligible based on patient's age to complete this topic Insurance [facility] Care Teams Crown Blocker Relationship Specialty Start Date End Date Ginny Moreira MD [address] [place] [address] PCP - General Family Practice 03/02/23
--- OUTSIDE RECORDS SUMMARY | 2024-06-10 21:52 | XMS_ITS | Data Portability ---
Author Organization [facility], Main Office Address [address] [facility] [address] [place] [address] Assessment Encounter Date Assessment Date Assessment LastModified by Organization Details LastModified Time 05/30/2024 05/30/2024 patient extremely tearful during visit encouraged to pursuit detox wants to spend time with family referred to psych to make earlier appt and establish next steps fmla forms and disability forms completed [employer] Not available 05/30/2024 22:43:45 Plan of Treatment Reminders Order Date Submit Date Provider Last Modified By Organization Details Last Modified Time Details Appointments None recorded. Lab CBC w/ auto diff 2024 025 [facility], [address], [address], [place], [address], 5 03:57:24 CMP, serum or plasma 2024 025 [facility], [address], [address], [place], [address], 5 03:57:24 phosphorus, serum or plasma 2024 025 [facility], [address], [address], [place], [address], 5 03:57:23 iron + TIBC + ferritin, serum 2024 025 [facility], [address], [address], [place], [address], 5 03:57:22 magnesium, serum or plasma 2024 025 [facility], [address], [address], [place], [address], 5 03:57:23 vitamin B12 + folate, serum or blood 2024 025 [facility], [address], [address], [place], [address], 5 03:57:25 rapid SARS CoV 2 Ag, QL IA, respiratory specimen 2024 025 [facility] Main Office, [address] [facility], [address], [place], [address], 5 12:29:11 influenza (A+B) Ag, qual, rapid, nose 2024 025 [facility] Main Office, [address] [facility], [address], [place], [address], 5 12:29:11 Referral general surgeon referral [address] [facility] (Hood, Pop, Tasha, Jose Armando, Monico), [address], [place], [address], 4 10:07:31 Procedures None recorded. Surgeries None recorded. Imaging None recorded. Medication Orders valacyclovi r 1 gram tablet 2024 025 [place] [id number], [address], [place], [place], [id number], 5 12:27:28 propranolol ER 80 mg capsule,24 hr,extended release 2023 025 [place] [id number], [address], [place], [place], [id number], 12:20:41 Patient TargetsNo targets recorded. Patient Instructions Encounter Date Encounter Id Patient Instructions Last Modified By Organization Details Last Modified Time 05/30/2024 I spent 35 minut preparing to see patient (including chart review and preparation), obtaining and/or reviewing additional medical history, performing a physical exam and evaluation, documenting clinical information in the electronic health record, independently interpreting results, communication results to family or caregiver and/or coordination care. Not available 05/30/2024 22:43:55 Reason for Referral General Surgeon Referral for Nodule of skin of lower limb Referring Physician: Everett Gaines, Family Medicine, Encounter Date: 12/17/2023 Results Created Date Observation Date Name Description Value Unit Range Abnormal Flag Note LastModifiedBy Organization Detail LastModifiedTime 10/29/19 24 10/29/2023 [facility] magnesium 2.1 mg/dL 1.5-2. 5 normal Not Available [facility] [address] [place], [address], 10/29/2023 11:56:04 10/29/19 24 10/29/2023 BASIC METAB OLIC PANEL glucose 72 mg/dL 65-99 normal Fasti ng refer ence inter ronald Not Available [facility] [address] [place], [address], 10/29/2023 11:56:05 10/29/19 24 10/29/2023 BASIC METAB OLIC PANEL urea nitrogen (BUN) 10 mg/dL 7-25 normal Not Available [facility] [address] [place], [address], 10/29/2023 11:56:05 10/29/19 24 10/29/2023 BASIC METAB OLIC PANEL creatinine 0.56 mg/dL 0.50-0 .97 normal Not Available [facility] [address] [place], [address], 10/29/2023 11:56:05 10/29/19 24 10/29/2023 BASIC METAB OLIC PANEL eGFR 122 mL/mi n/1.7 3m2 > or = 60 normal Not Available [facility] [address] [place], [address], 10/29/2023 11:56:05 10/29/19 24 10/29/2023 BASIC METAB OLIC PANEL BUN/creatini ne ratio SEE NOTE: (calc ) 6-22 Not Repor crispin: BUN and Creat inine are withi n refer ence range . Not Available [facility] [address] [place], [address], 10/29/2023 11:56:05 10/29/19 24 10/29/2023 BASIC METAB OLIC PANEL sodium 136 mmol/ L 135-14 6 normal Not Available [facility] [address] [place], [address], 10/29/2023 11:56:05 10/29/19 24 10/29/2023 BASIC METAB OLIC PANEL potassium 4.0 mmol/ L 3.5-5. 3 normal Not Available [facility] [address] [place], [address], 10/29/2023 11:56:05 10/29/19 24 10/29/2023 BASIC METAB OLIC PANEL chloride 101 mmol/ L 98-110 normal Not Available [facility] [address] [place], [address], 10/29/2023 11:56:05 10/29/19 24 10/29/2023 BASIC METAB OLIC PANEL carbon dioxide 24 mmol/ L 20-32 normal Not Available [facility] [address] [place], [address], 10/29/2023 11:56:05 10/29/19 24 10/29/2023 BASIC METAB OLIC PANEL calcium 9.3 mg/dL 8.6-10 .2 normal Not Available [facility] [address] [place], [address], 10/29/2023 11:56:05 10/29/19 24 10/29/2023 CBC (INCL UDES DIFF/ PLT) white blood cell count 5.1 thous and/u L 3.8-10 .8 normal Not Available [facility] [address] [place], [address], 10/29/2023 05:44:12 10/29/19 24 10/29/2023 CBC (INCL UDES DIFF/ PLT) red blood cell count 3.66 briana on/uL 3.80-5 .10 low Not Available [facility] [address] [place], [address], 10/29/2023 05:44:12 10/29/19 24 10/29/2023 CBC (INCL UDES DIFF/ PLT) hemoglobin 14.2 g/dL 11.7-1 5.5 normal Not Available [facility] [address] [place], [address], 10/29/2023 05:44:12 10/29/19 24 10/29/2023 CBC (INCL UDES DIFF/ PLT) hematocrit 42.0 % 35.0-4 5.0 normal Not Available [facility] [place], [address], 10/29/2023 05:44:12 10/29/19 24 10/29/2023 CBC (INCL UDES DIFF/ PLT) MCV 114.8 fL 80.0-1 00.0 high Not Available [facility] [place] [facility] [address] [place], [address], 10/29/2023 05:44:12 10/29/19 24 10/29/2023 CBC (INCL UDES DIFF/ PLT) MCH 38.8 pg 27.0-3 3.0 high Not Available [facility] [place] [facility] [address] [facility] [place], [address], 10/29/2023 05:44:12 10/29/19 24 10/29/2023 CBC (INCL UDES DIFF/ PLT) MCHC 33.8 g/dL 32.0-3 6.0 normal Not Available [facility] [place] [facility] [address] [place], [address], 10/29/2023 05:44:12 10/29/19 24 10/29/2023 CBC (INCL UDES DIFF/ PLT) RDW 13.6 % 11.0-1 5.0 normal Not Available [facility] [address] [place], [address], 10/29/2023 05:44:12 10/29/19 24 10/29/2023 CBC (INCL UDES DIFF/ PLT) platelet count 329 thous and/u L 140-40 0 normal Not Available [facility] [place] [facility] [address] [place], [address], 10/29/2023 05:44:12 10/29/19 24 10/29/2023 CBC (INCL UDES DIFF/ PLT) MPV 10.7 fL 7.5-12 .5 normal Not Available [facility] [place] [facility] [address] [place], [address], 10/29/2023 05:44:12 10/29/19 24 10/29/2023 CBC (INCL UDES DIFF/ PLT) absolute neutrophils 2591 cells /uL 1500-7 800 normal Not Available [facility] [place] [facility] [address] [place], [address], 10/29/2023 05:44:12 10/29/19 24 10/29/2023 CBC (INCL UDES DIFF/ PLT) absolute lymphocytes 1892 cells /uL 850-39 00 normal Not Available [facility] [place] [facility] [address] [place], [address], 10/29/2023 05:44:12 10/29/19 24 10/29/2023 CBC (INCL UDES DIFF/ PLT) absolute monocytes 428 cells /uL 200-95 0 normal Not Available [facility] [place] [facility] [address], [place], [address], 10/29/2023 05:44:12 10/29/19 24 10/29/2023 CBC (INCL UDES DIFF/ PLT) absolute eosinophils 128 cells /uL 15-500 normal Not Available [facility] [place] [facility] [address], [place], [address], 10/29/2023 05:44:12 10/29/19 24 10/29/2023 CBC (INCL UDES DIFF/ PLT) absolute basophils 61 cells /uL 0-200 normal Not Available [facility] [place] [facility] [address], [place], [address], 10/29/2023 05:44:12 10/29/19 24 10/29/2023 CBC (INCL UDES DIFF/ PLT) neutrophils 50.8 % normal Not Available [facility] [place] [facility] [address], [place], [address], 10/29/2023 05:44:12 10/29/19 24 10/29/2023 CBC (INCL UDES DIFF/ PLT) lymphocytes 37.1 % normal Not Available [facility] [place] [facility] [address], [place], [address], 10/29/2023 05:44:12 10/29/19 24 10/29/2023 CBC (INCL UDES DIFF/ PLT) monocytes 8.4 % normal Not Available [facility] [place] [facility] [address], [place], [address], 10/29/2023 05:44:12 10/29/19 24 10/29/2023 CBC (INCL UDES DIFF/ PLT) eosinophils 2.5 % normal Not Available [facility] [place] [facility] [address] [place], [address], 10/29/2023 05:44:12 10/29/19 24 10/29/2023 CBC (INCL UDES DIFF/ PLT) basophils 1.2 % normal Not Available [facility] [place] [facility] [address] [place], [address], 10/29/2023 05:44:12 10/29/19 24 10/29/2023 VITAM IN B12/F OLATE , SERUM PANEL vitamin B12 350 pg/mL 200-11 00 normal Pleas e Note: Altho ugh the refer ence range for vitam in B12 is 200-1 100 pg/mL , it has been repor crispin that betwe en 5 and 10% of patie nts with value s betwe en 200 and 400 pg/mL may exper ience neuro psych iatri c and hemat ologi c abnor malit ies due to occul t B12 defic iency ; less than 1% of patie nts with value s above 400 pg/mL will have sympt oms. Not Available [facility] [place] [facility] [address] [place], [address], 10/29/2023 09:51:26 10/29/19 24 10/29/2023 VITAM IN B12/F OLATE , SERUM PANEL folate, serum >24.0 NG/mL normal Refer ence Range Low: <3.4 Borde rline : 3.4-5 .4 Fernanda l: >5.4 NO COLLE CTION DATE RECEI MATTIE. WE HAVE USED THE DATE THE SPECI MEN WAS RECEI MATTIE BY THIS LABOR ATORY THE COLLE CTION DATE. IF THIS IS INCOR RECT, PLEAS E CONTA CT CLIEN T SERVI KARLEE. PHONE NUMBE R: [phone] Not Available [facility] [place] [facility] [address] [place], [address], 10/29/2023 09:51:26 03/21/19 25 03/21/2024 influ zaki (A+B) Ag, qual, rapid , nose Flu Positi ve for Influe nza A Not Available Main Office [address], [place], [address], 03/21/2024 12:27:29 03/21/19 25 03/21/2024 rapid SARS CoV 2 Ag, QL IA, respi rator y speci men rapid SARS CoV 2 Ag, QL IA, respiratory specimen negati ve Not Available Main Office [address], [place], [address], 03/21/2024 12:27:28 04/24/19 25 04/25/2024 IRON, TIBC AND WOLF TIN PANEL iron, total 45 mcg/d L 40-190 normal Not Available [facility] [address] [place], [address], 04/25/2024 04:25:43 04/24/19 25 04/25/2024 IRON, TIBC AND WOLF TIN PANEL iron binding capacity 314 mcg/d L_(ca lc) 250-45 0 normal Not Available [facility] [place] [facility] [address] [place], [address], 04/25/2024 04:25:43 04/24/19 25 04/25/2024 IRON, TIBC AND WOLF TIN PANEL % saturation 14 %_(ca lc) 16-45 low Not Available [facility] [place] [facility] [address] [place], [address], 04/25/2024 04:25:43 04/24/19 25 04/25/2024 IRON, TIBC AND WOLF TIN PANEL ferritin 387 NG/mL 16-154 high Not Available [facility] [place] [facility] [address] [place], [address], 04/25/2024 04:25:43 04/24/19 25 04/25/2024 [facility] magnesium 2.2 mg/dL 1.5-2. 5 normal Not Available [facility] [address] [place], [address], 04/25/2024 04:25:44 04/24/1904/25/2024 PHOSP HATE ( PHOSP HORUS ) phosphate ( phosphorus) 4.0 mg/dL 2.5-4. 5 normal Not Available [facility] [address] [place], [address], 04/25/2024 04:25:45 04/24/1904/25/2024 COMPR EHENS ELY METAB OLIC PANEL glucose 112 mg/dL 65-99 high Fasti ng refer ence inter ronald For someo ne witho ut known diabe samuel, a gluco se value betwe en 100 and 125 mg/dL is consi stent with predi abete s and shoul d be confi rmed with a follo w-up test. Not Available [facility] [address] [place], [address], 04/25/2024 04:25:46 04/24/19 25 04/25/2024 COMPR EHENS LEY METAB OLIC PANEL urea nitrogen (BUN) 6 mg/dL 7-25 low Not Available [facility] [address] [place], [address], 04/25/2024 04:25:46 04/24/19 25 04/25/2024 COMPR EHENS ELY METAB OLIC PANEL creatinine 0.57 mg/dL 0.50-0 .97 normal Not Available [facility] [address] [place], [address], 04/25/2024 04:25:46 04/24/19 25 04/25/2024 COMPR EHENS ELY METAB OLIC PANEL eGFR 121 mL/mi n/1.7 3m2 > or = 60 normal Not Available [facility] [address] [facility], [address], 04/25/2024 04:25:46 04/24/19 25 04/25/2024 COMPR EHENS ELY METAB OLIC PANEL BUN/creatini ne ratio 11 (calc ) 6-22 normal Not Available [facility] [address] [place], [address], 04/25/2024 04:25:46 04/24/19 25 04/25/2024 COMPR EHENS ELY METAB OLIC PANEL sodium 141 mmol/ L 135-14 6 normal Not Available [facility] [address] [place], [address], 04/25/2024 04:25:46 04/24/19 25 04/25/2024 COMPR EHENS ELY METAB OLIC PANEL potassium 3.9 mmol/ L 3.5-5. 3 normal Not Available [facility] [address] [place], [address], 04/25/2024 04:25:46 04/24/19 25 04/25/2024 COMPR EHENS ELY METAB OLIC PANEL chloride 102 mmol/ L 98-110 normal Not Available [facility] [address] [facility], [address], 04/25/2024 04:25:46 04/24/19 25 04/25/2024 COMPR EHENS ELY METAB OLIC PANEL carbon dioxide 29 mmol/ L 20-32 normal Not Available [facility] [address] [facility], [address], 04/25/2024 04:25:46 04/24/19 25 04/25/2024 COMPR EHENS ELY METAB OLIC PANEL calcium 9.5 mg/dL 8.6-10 .2 normal Not Available [facility] [address] [facility], [address], 04/25/2024 04:25:46 04/24/19 25 04/25/2024 COMPR EHENS ELY METAB OLIC PANEL protein, total 6.5 g/dL 6.1-8. 1 normal Not Available [facility] [address] [place], [address], 04/25/2024 04:25:46 04/24/19 25 04/25/2024 COMPR EHENS ELY METAB OLIC PANEL albumin 4.2 g/dL 3.6-5. 1 normal Not Available [facility] [address] [place], [address], 04/25/2024 04:25:46 04/24/19 25 04/25/2024 COMPR EHENS ELY METAB OLIC PANEL globulin 2.3 g/dL_ (calc ) 1.9-3. 7 normal Not Available [facility] [address] [place], [address], 04/25/2024 04:25:46 04/24/19 25 04/25/2024 COMPR EHENS ELY METAB OLIC PANEL albumin/glob ulin ratio 1.8 (calc ) 1.0-2. 5 normal Not Available [facility] [address] [facility] [place], [address], 04/25/2024 04:25:46 04/24/19 25 04/25/2024 COMPR EHENS ELY METAB OLIC PANEL bilirubin, total 0.5 mg/dL 0.2-1. 2 normal Not Available [facility] [address] [place], [address], 04/25/2024 04:25:46 04/24/19 25 04/25/2024 COMPR EHENS ELY METAB OLIC PANEL alkaline phosphatase 85 U/L 31-125 normal Not Available [facility] [address] [facility] [place], [address], 04/25/2024 04:25:46 04/24/19 25 04/25/2024 COMPR EHENS ELY METAB OLIC PANEL AST 73 U/L 10-30 high Not Available [facility] [place] [facility] [address] [place], [address], 04/25/2024 04:25:46 04/24/19 25 04/25/2024 COMPR EHENS ELY METAB OLIC PANEL ALT 55 U/L 6-29 high Not Available [facility] [place] [facility] [address], [place], [address], 04/25/2024 04:25:46 04/24/1904/25/2024 CBC (INCL UDES DIFF/ PLT) white blood cell count 8.1 thous and/u L 3.8-10 .8 normal Not Available [facility] [place] [facility] [address] [place], [address], 04/25/2024 07:41:42 04/24/1904/25/2024 CBC (INCL UDES DIFF/ PLT) red blood cell count 4.01 briana on/uL 3.80-5 .10 normal Not Available [facility] [place] [facility] [address], [place], [address], 04/25/2024 07:41:42 04/24/1904/25/2024 CBC (INCL UDES DIFF/ PLT) hemoglobin 14.0 g/dL 11.7-1 5.5 normal Not Available [facility] [address], [place], [address], 04/25/2024 07:41:42 04/24/1904/25/2024 CBC (INCL UDES DIFF/ PLT) hematocrit 41.2 % 35.0-4 5.0 normal Not Available [facility] [place] [facility] [address], [place], [address], 04/25/2024 07:41:42 04/24/1904/25/2024 CBC (INCL UDES DIFF/ PLT) MCV 102.7 fL 80.0-1 00.0 high Not Available [facility] [place] [facility] [address], [address], 04/25/2024 07:41:42 04/24/1904/25/2024 CBC (INCL UDES DIFF/ PLT) MCH 34.9 pg 27.0-3 3.0 high Not Available [facility] [place] [facility] [address], [place], [address], 04/25/2024 07:41:42 04/24/1904/25/2024 CBC (INCL UDES DIFF/ PLT) MCHC 34.0 g/dL 32.0-3 6.0 normal For adult s, a sligh t decre ase in the calcu lated MCHC value (in the range of 30 to 32 g/dL) is most likel y not clini blu signi fican t; eva er, it shoul d be inter prete d with cauti on in corre lat n with other red cell nafisa eters and the patie nt's clini luly condi tion. Not Available [facility] [place] [facility] [address] [facility] [address], [place], [address], 04/25/2024 07:41:42 04/24/1904/25/2024 CBC (INCL UDES DIFF/ PLT) RDW 14.4 % 11.0-1 5.0 normal Not Available [facility] [place] [facility] [address], [place], [address], 04/25/2024 07:41:42 04/24/1904/25/2024 CBC (INCL UDES DIFF/ PLT) platelet count 270 thous and/u L 140-40 0 normal Not Available [facility] [place] [facility] [address], [place], [address], 04/25/2024 07:41:42 04/24/1904/25/2024 CBC (INCL UDES DIFF/ PLT) MPV 11.0 fL 7.5-12 .5 normal Not Available [facility] [place] [facility] [address] [place], [address], 04/25/2024 07:41:42 04/24/1904/25/2024 VITAM IN B12/F OLATE , SERUM PANEL vitamin B12 743 pg/mL 200-11 00 normal Not Available [facility] [address] [facility], [place], [address], 04/25/2024 06:09:12 04/24/1904/25/2024 VITAM IN B12/F OLATE , SERUM PANEL folate, serum >24.0 NG/mL normal Refer ence Range Low: <3.4 Borde rline : 3.4-5 .4 Fernanda l: >5.4 Not Available [facility] [facility], [place], [address], 04/25/2024 06:09:12 04/24/1904/25/2024 FABBY HAAS absolute neutrophils 5103 cells /uL 1500-7 800 normal Not Available [facility] [address] [place], [place] [address] [place], [address], 04/25/2024 07:41:44 04/24/1904/25/2024 FABBY HAAS L absolute metamyelocyt es 162 cells /uL 0 high Not Available [facility] [facility], [place], [address], 04/25/2024 07:41:44 04/24/1904/25/2024 DANIEL HAASA L absolute lymphocytes 2025 cells /uL 850-39 00 normal Not Available [facility] [address] [facility] [place], [address], 04/25/2024 07:41:44 04/24/1904/25/2024 DIFFE RENTI AL, MANUA L absolute monocytes 810 cells /uL 200-95 0 normal Not Available [facility] [place] [facility] [address] [place] [address], [place], [address], 04/25/2024 07:41:44 04/24/1904/25/2024 DIFFE RENTI AL, MANUA L absolute eosinophils 0 cells /uL 15-500 low Not Available [facility] [place] [facility] [address] [place] [address], [place], [address], 04/25/2024 07:41:44 04/24/1904/25/2024 DIFFE RENTI AL, MANUA L absolute basophils 0 cells /uL 0-200 normal Not Available [facility] - [address], [address], 04/25/2024 07:41:44 04/24/19 25 04/25/2024 DIFFE RENTI AL, MANUA L neutrophils 63.0 % normal Not Available [facility] - [address] [place], [address], 04/25/2024 07:41:44 04/24/19 25 04/25/2024 DIFFE RENTI AL, MANUA L metamyelocyt es 2.0 % high Not Available [facility] [place] [facility] [address] [place] [address], [place], [address], 04/25/2024 07:41:44 04/24/19 25 04/25/2024 DIFFE RENTI AL, MANUA L lymphocytes 25.0 % normal Not Available [facility] [place] [facility] [address] [place] [address], [place], [address], 04/25/2024 07:41:44 04/24/19 25 04/25/2024 DIFFE RENTI AL, MANUA L monocytes 10.0 % normal Not Available [facility] [address] [place], [address], 04/25/2024 07:41:44 04/24/1904/25/2024 DIFFE RENALVINA AL, DANIELA L eosinophils 0 % normal Not Available [facility] [place] [facility] [address] [facility], [address], 04/25/2024 07:41:44 04/24/1904/25/2024 DIFFE RENALVINA AL, MANUA L basophils 0 % normal Not Available [facility] [place] [facility] [address] [facility], [address], 04/25/2024 07:41:44 04/24/1904/25/2024 DIFFE RENTI AL, MANUA L note Altho ugh an auto mated CBC was order ed, our instr ument ation detec crispin an abnor malit y on your patie nt's speci men requi ring us to perfo rm a daniela l revie w. Not Available [facility] [place] [facility] [address] [facility], [place], [address], 04/25/2024 07:41:44 Result Notes None recorded. Problems Name Problem SNOMED Code Status Onset Date Resolution Date Notes Provider Name and Address Organization Details Recorded Time Stomatiti s 00204362 Active 2023 Everett Gaines MD [address], [place], [address] , [facility] 4 09:32:59 Chronic interstit ial cystitis 292303357 Active [address], [place], [address] , [facility] 4 09:38:28 Attention deficit hyperacti vity disorder 877278896 Active [address], [place], [address] , [facility] 4 09:38:29 Folic acid deficienc y 660450194 Active 2023 Everett Gaines MD [address], [place], [address] , [facility] 4 13:28:50 Hypomagne semia 527941495 Active 2023 Everett Gaines MD [address], [place], [address] , [facility] 4 13:30:38 Hypokalem ia 74651854 Active 2023 Everett Gaines MD [address], [place], [address] , [facility] 4 13:31:35 Essential hypertens ion 53328334 Active 2023 Everett Gaines MD [address], [place], [address] , [facility] 4 13:47:50 Macrocyto sis 803940346 Active 2023 with folic acid deficiency - improving with supplement ation Everett Gaines MD [address], [place], [phone] , [facility] 4 16:07:02 Bipolar disorder 39412887 Active 2023 Everett Gaines MD [address], [place], [address] , [facility] 4 16:28:09 Steatosis of liver 249501296 Active 2024 Everett Gaines MD [address], [place], [address] , [facility] 5 16:12:18 Problem Notes None recorded. Procedures Surgical History Date Name Laterality Status Provider Name and Address Organization Details Recorded Time 9 Tonsillectomy completed Everett Gaines MD [address] [facility],[address], [place], [address], [facility] 10/13/2023 09:33:25 Imaging Results None recorded. Procedure Notes None recorded. Medical Equipment None Reported. Allergies Allergen ID Allergen Name Allergen Category Reaction Reaction Severity Criticality Documentation Date Start Date Code Code System Note Provider Name and Address Organization Details Recorded Time 2112 clindamyc in Not available Not available Not available Not available 10/13/2023 2582 RxNorm Margy Campos tracey, [facility] 4 09:19:07 2113 Augmentin medicatio n Not available Not available Not available 10/13/2023 27319 2 RxNorm Margy Andres webb, [facility] 4 09:19:11 2114 Bactrim medicatio n Not available Not available Not available 10/13/2023 42074 9 RxNorm Margy Andres webb, [facility] 4 09:19:17 Medications Name Sig Start Date Stop Date Status Note LastModified by Organization Details LastModified Time gabapenti n 600 mg tablet TAKE 1 TABLET BY MOUTH TWICE DAILY active as needed to help sleep Not Available Not Available Not Available doxycycli ne hyclate 100 mg capsule 03/21 completed Not Available Not Available Not Available alprazola m 1 mg tablet TAKE 1 TABLET BY MOUTH TWICE DAILY NEEDED active Not Available Not Available No t Available Lidocaine Viscous 2 % mucosal solution 05/30 completed Not Available Not Available Not Available metoprolo l succinate ER 50 mg tablet,ex tended release 24 hr TAKE 1 TABLET BY MOUTH EVERY DAY 03/21 completed Not Available Not Available Not Available levetirac etam 500 mg tablet TAKE 1 TABLET BY MOUTH TWICE DAILY 05/30 completed Not Available Not Available Not Available valacyclo vir 1 gram tablet TAKE 2 TABLETS BY MOUTH AT ONSET FOR COLD SORE. REPEAT 2 TABLET IN 12 HOURS 04/24 completed Not Available Not Available Not Available Elmiron 100 mg capsule TAKE 1 CAPSULE BY MOUTH THREE TIMES DAILY 10/12 completed Not Available Not Available Not Available nifedipin e ER 30 mg tablet,ex tended release TAKE 1 TABLET BY MOUTH EVERY DAY 10/27 completed Not Available Not Available Not Available folic acid 400 mcg tablet Take 1 tablet every day by oral route. active Not Available Not Available No t Available dextroamp hetamine- amphetami ne 30 mg tablet once daily as needed active Not Available Not Available No t Available ziprasido ne 20 mg capsule TAKE 1 CAPLET BY MOUTH TWICE DAILY AFTER MEALS 04/24 completed Not Available Not Available Not Available amitripty line 25 mg tablet TAKE 1 TABLET BY MOUTH AT BEDTIME. START WITH 10MG EVERY NIGHT AT BEDTIME FOR 2 WEEKS 10/10 completed Not Available Not Available Not Available amitripty line 10 mg tablet TAKE 1 TABLET BY MOUTH AT BEDTIME 05/30 completed Not Available Not Available Not Available cephalexi n 500 mg capsule TAKE 1 CAPSULE BY MOUTH FOUR TIMES DAILY FOR 7 DAYS 10/12 completed Not Available Not Available Not Available clonazepa m 2 mg tablet TAKE 1 TABLET BY MOUTH EVERY NIGHT AT BEDTIME. CONTINUE ALPRAZOL AM active Not Available Not Available No t Available propranol ol ER 80 mg capsule,2 4 hr,extend ed release TAKE 1 CAPSULE BY MOUTH EVERY DAY 03/21 completed Not Available Not Available Not Available folic acid 1 mg tablet Take 400 microgra ms every day by oral route. 05/30 completed Not Available Not Available Not Available metoprolo l succinate ER 25 mg tablet,ex tended release 24 hr TAKE 1 TABLET BY MOUTH EVERY DAY 10/27 completed Not Available Not Available Not Available ondansetr on 4 mg disintegr ating tablet PLACE 1 TABLET IN CHEEK EVERY 4 HOURS NEEDED FOR NAUSEA OR VOMITING FOR UP TO 3 DAYS. 10/10 completed Not Available Not Available Not Available fluticaso ne propionat e 50 mcg/actua tion nasal spray,nikunj pension active as needed Not Available Not Available Not Available azithromy darell 500 mg tablet 10/12 completed Not Available Not Available Not Available ciproflox acin 0.3 %-dexamet hasone 0.1 % ear drops,nikunj pension SHAKE LIQUID AND INSTILL 4 DROPS TO AFFECTED EAR TWICE DAILY FOR 7 DAYS 12/16 completed Not Available Not Available Not Available magnesium once daily active Not Available Not Available No t Available L-Arginin e 1000 mg pill, 1 pill 2 times daily active Not Available Not Available No t Available iron once daily active unknown dose Not Available Not Available Not Available Vitamin B1 once daily active Not Available Not Available No t Available Daily Multi-Vit joiner once daily active Not Available Not Available No t Available Leeann Fe 03/20 (28) 1 mg-20 mcg (21)/75 mg (7) tablet once daily active Not Available Not Available No t Available Vitals Date Recorded Body height Body mass index (BMI) Body weight Respiratory rate Heart rate Oxygen saturation Oxygen saturation in Arterial blood by Pulse oximetry Systolic blood pressure Diastolic blood pressure Provider Name and Address Organization Details Last Updated DateTime 5 151.13 cm 26.2 kg/m2 51378.1 9 g 16 /min 82 /min 99 % 99 % 120 mm[Hg] 80 mm[Hg] [facility] 5 15:45:33 Date Recorded Body height Body mass index (BMI) Body weight Oxygen saturation Oxygen saturation in Arterial blood by Pulse oximetry Heart rate Systolic blood pressure Diastolic blood pressure Provider Name and Address Organization Details Last Updated DateTime 5 151.13 cm 27.1 kg/m2 36630 g 99 % 99 % 112 /min 112 mm[Hg] 78 mm[Hg] Sriram Goldsmith [facility] 5 13:58:33 Date Recorded Body height Body mass index (BMI) Body weight Respiratory rate Heart rate Oxygen saturation Oxygen saturation in Arterial blood by Pulse oximetry Systolic blood pressure Diastolic blood pressure Provider Name and Address Organization Details Last Updated DateTime 4 151.13 cm 26.6 kg/m2 54214.3 8 g 16 /min 92 /min 99 % 99 % 124 mm[Hg] 80 mm[Hg] [facility] 4 16:13:24 Date Recorded Body height Body mass index (BMI) Body weight Oxygen saturation Oxygen saturation in Arterial blood by Pulse oximetry Heart rate Systolic blood pressure Diastolic blood pressure Provider Name and Address Organization Details Last Updated DateTime 5 151.13 cm 25.8 kg/m2 68224.0 1 g 96 % 96 % 84 /min 120 mm[Hg] 76 mm[Hg] Daya Suárez [facility] 12:07:40 Social History Question Answer Notes LastModified by Organizat ion Details LastModified Time Tobacco Smoking Status Never Smoker Margy Campos tracey, [facility] 10/13/2023 09:21:04 What Is Your Level Of Alcohol Consumption? Occasional Weekends [email or web address] Information not available 10/13/2023 How Many Times Per Week Do You Consume Alcohol? 1-2 Times Per Week Information not available 05/30/2024 Are You Currently Employed? Yes [email or web address] Information not available 10/13/2023 What Type Of Diet Are You Following? 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 05/30/2024 Information not available 05/30/2024 How Many Children Do You Have? 0 [email or web address] Information not available 10/13/2023 What Is Your Relationship Status? Single Information not available 10/13/2023 Do You Use Any Illicit Or Recreational Drugs? No Information not available 05/30/2024 Do You Or Have You Ever Used Any Other Forms Of Tobacco Or Nicotine? No Information not available 10/13/2023 Sex: Unknown Functional Status Question Answer Note LastModified by Organization D etails LastModified Time What is your exercise level? None [email or web address] Information not available 10/13/2023 Mental Status None recorded. Family History Relationship Description Onset Age of this Age Resolved Age Notes LastModified by Organization Details LastModified Time Father Malignant tumor of prostate [email or web address] Not available 2023 09:19:55 Mother Non-Hodgkin' s lymphoma (clinical) [email or web address] Not available 10/12 09:20:04 Medical History No medical history recorded. Gynecological History Statement/Question Response Date of Last Pap Smear Date of LMP 05/21/2024 Obstetrics History GPAL:G 0 P 0 0 0 0 Immunizations Vaccine Type Date Status Note Provider Nam clive and Address Organization Details Recorded Time Tdap 04/24/2024 completed Everett Gaines MD [address] [facility],[address], [place], [address], [facility] 04/24/2024 23:31:56 HPV9 09/09/2023 completed Margy Andres webb, [facility] 10/13/2023 09:11:11 COVID-19, mRNA, LNP-S, PF, 30 mcg/0.3 mL dose 07/05/2020 completed Margy Campos null, [facility] 10/13/2023 09:11:11 COVID-19, mRNA, LNP-S, PF, 30 mcg/0.3 mL dose 07/29/2020 completed Margy Campos null, [facility] 10/13/2023 09:11:11 Tdap 02/04/2019 completed Margy webb, [facility] 10/13/2023 09:11:11 Past Encounters Encounter ID Performer Location Encounter Start Date Encounter Closed Date Diagnosis/Indication Diagnosis SNOMED-CT Code Diagnosis ICD10 Code Diagnosis Note [id number] Everett Gaines MD Main Office [address] [facility] [facility] [place] [address] 10/13/2023 09:05:18 10/13/2023 10:30:40 Adult health examination 427315341 Z00.00 Z13.1 Take Vitamin D [address] [facility] 150 minutes of exercise per week Diet education 76604138 Z71.3 Exercises education, guidance, and counseling 967674847 Z71.82 Stomatitis 01583207 K12. 1 consider mouth jazmine as can help with teeth grinding/c lenching Otitis ext bhumi of left ear 5046434437 440732 H60.92 improved at this time Attention deficit hyperactivity disorder 524647692 F90.9 seeing psych - Dr Alexey Weber Chronic in terstitial cystitis 319099640 N30.10 on 10 mg of amitriptyl ine per urology - Uropartner s Anxiety 22026517 F41.9 on gabapentin and xanax per psych Insomnia 027520185 G47.0 0 on gabapentin and xanax per psych Hypertensive disorder 38 961356 I10 proper use of med discussed Irregular periods 367952 07 N92.6 Venereal d isease screening 333562432 Z11.3 Abnormal urine 292700093 R82.90 [id number] Everett Gaines MD Main Office [address] [facility],[address] [facility] [place] [address] 10/28/2023 14:24:44 10/28/2023 15:32:28 Macrocytic anemia 19388642 D53.9 ?folic acid deficiency induced - recheck now and possibly in 1 month and if still abnormal, refer hematology Hypokalemia 28472823 E87 .6 as above Folic acid deficiency 19 4765805 E53.8 as above Hypomagnesemia 326420044 E83.42 as above Screening for malignant neoplasm of cervix 491580072 Z12.4 Essential hypertension 82049809 I10 lower in the clinic todaywill defer [place] cards [id number] Everett Gaines MD Main Office [address] [facility],[address] [facility] [place] [address] 12/17/2023 15:58:44 12/17/2023 16:45:33 Bipolar disorder 26161765 F31.9 I d/w pt that I am concerned she is in a manic episode. no self harm thoughts at this time. Reports that will be seeing psych on Wednesday. Patient does have some frustratio ns with her psych - Given info for PRA vs Dr Ramos for 2nd opinion. Essential hypertension 62915954 I10 switch metoprolol to propranol d/t diarrhea sx Nodule of skin of lower limb 591151321 R22.41 Diarrhea 52988809 R19.7 patient belows adr from metoprolol if ongoing, needs GI eval including stool studies [id number] Everett Gaines MD Main Office [address] [facility],[address] [place] [address] 03/21/2024 11:59:21 03/21/2024 12:31:36 Recurrent herpes simplex labialis 034986847 B00.1 Fever 159511159 R50.9 Influenza 6253016 J11.1 RestPush FluidsTyle nol/Motrin OR OTC cold medication sSinus Rinse, saline spray, humidifier outside tx window for tamiflu [id number] Everett Gaines MD Main Office [address] [facility],[address] [place] [address] 04/20/2024 16:45:18 04/20/2024 16:47:25 [id number] Everett Gaines MD Main Office [address] [facility],[address] [place] [address] 04/24/2024 15:28:32 04/24/2024 16:36:46 Seizure 09446957 R56.9 no driving at this timefollow up with neurology Hypomagnesemia 984376857 E83.42 as above Hypokalemia 27677237 E87 .6 as abovereche ck as below Folic acid deficiency 19 8067826 E53.8 as above Malnutriti on (calorie) 157860341 E46 Contusion of face 559632 004 S00.83XA healing well Epilepsy 97576308 G40.90 9 as above Active or passive immunization 927375109 Z23 Everett Gaines MD Main Office [address] [facility],[address] [place] [address] 05/30/2024 13:36:00 05/30/2024 16:52:25 Alcoholism 0469813 F10.20 as above Epilepsy 95075001 G40.90 9 as aboveseein g new neuro - needs to stay off alcohol at this time Bereavement 83368850 Z63 .4 as above Health Concerns Section Related Observation LastModified by Organization Detai ls LastModified Time None Recorded Concern Status LastModified by Organization Details LastModified Time None Recorded Advance Directives Directive None Recorded Payers Encounter Date Sequence Insurance Name Policy Number Policy Healy Covered Member ID Healy Member ID Guarantor Name 12/17/2023 1 [place] [id number] Barbi Rae [id number] Barbi Ann Mariewihector 03/21/2024 1 [place] [id number] Barbi Rae [id number] Barbi Heatherlewicz 04/24/2024 1 [place] [id number] Barbi Rae [id number] Barbi Heatherlewicz 05/30/2024 1 [place] [id number] Barbi Rae [id number] Barbi Kyra Notes Date Note Type Note Provider Name and Address Organization Details Recorded Time 12/17/2023 text/html insomnia - repor ts having trouble falling asleep and staying asleep - X 3 weeks. Heart racing at times. Calling into work. Given xanax to help her sleep and then gabapentin to help her sleep. Tried ambien and quetiapine without relief. tried ssri and snri's without relief. ?manic state - seeing psych on Wednesday nodule on right lateral thigh - present [address], [place], [address], [facility] 12/19/2023 00:15:15 03/21/2024 text/html Upper Respirator y SymptomsReported bypatient.Location:he ad; chest; throat Quality:congested;dry cough;hurts to swallow Severity:moderate Duration:symptoms lasting over 2 weeks; 4 days Onset/Timing:gradual Context:no sick contacts; non-smoker Associated Symptoms:no chest pain; no sputum production; no shortness of breath; no wheezing; no cyanosis; no fatigue; no change in number of pillows needed to sleep at night; no sweats; no fever; no morning cough; no sore throat; no vomiting; no diarrhea; no rash; no nausea; no headache; no chills; no malaise; no conjunctivitis sick since after christeports woke up with cold sores in the her mouth and was in urgent care - valtrex was negativewas doing a little better and then fevers since Wednesday - 103to [address], [place], [address], [facility] 03/21/2024 22:56:03 04/24/2024 text/html d/c 04/21/24 [facility] but was mal[facility]ourished - poor appetite from depressiontaking keppra which has increased her appetitehas psych - not sleeping well and keppra makes it worsenot driving at this time.patient reports that she doesn't drink at all but was labelled as alcoholic - however, not eating as well due to her mood. She has not d/w psych but will now MD [address], [place], [address], [facility] 04/24/2024 23:34:33 05/30/2024 text/html father passed aw ay- prostate metastatic cancer - 69 yr oldfather [place], [place] told her that she might have epilepsyDr Gerun - 06/08/2024 virtual visit ([place]) Patient reports that she went back to work last week . She states that her father from Wednesday night through Wednesday. She states that this services happened on Wednesday. She states that her mother wants to commit suicide and her nieces and nephews are tearful. They live in [facility] and she feels that she needs to be there. She now admits to drinking which led to her seizure. She states that she is driving even though she is not supposed to be and understands the risks. Everett Gaines MD [address], [place], [address], [facility] 05/30/2024 22:44:10 OBGyn Episode No OBEpisode recorded.
--- OUTSIDE RECORDS SUMMARY | 2024-06-10 21:52 | XMS_ITS | Encounter Summary ---
Author Organization [facility] Address [address] [place] [address] Care Team Providers Care Asic Verification Engineer Name Role Phone Angel Moyer MD Primary Care Provider [phone] Encounter Details Date Type Department Care Team (Late st Contact Info) Description 10/18/2023 Lab Requisition Lab Services [address] [place] [address] Willis Garcia MD [address] [id number] Other forms of stomatitis Social History Tobacco Use Types Packs/Day Years Used Date Smoking Tobacco: Never Smokeless Tobacco: Never Alcohol Use Standard Drinks/Week Comments Yes 7 (1 standard drink = 0.6 oz pur e alcohol) 7 white claws a week Comments No Sex and Gender Information Value Date Recorded Sex Assigned at Not on file Legal Sex Female 8:20 PM QUALITY CONTROL DIRECTOR Gender Identity Not on file Sexual Orientation Not on file documented as of this encounter Plan of Treatment Not on file documented as of this encounter Procedures Procedure Name Priority Date/Time Associated Diagnosis Comments HERPES SIMPLEX 1 AND 2 (HSV) DNA DETECTION (SENDOUT NS) Routine 10/18/2023 2:08 PM CDT Other forms of stomatitis documented in this encounter Results * Herpes Simplex Virus 1 and 2 (HSV)DNA Detection (Sendout NS) (10/18/2023 2:08 PM CDT) HSV PCR SOURCE MOUTH 10/20/2023 12:33 PM CDT [facility] HSV-1 DNA DETECTION NEGATIVE NEGATIVE 10/20/2023 12:33 PM CDT [facility] HSV-2 DNA DETECTION NEGATIVE NEGATIVE 10/20/2023 12:33 PM CDT [facility] Other Swab / Unknown 10/18/2023 2: 08 PM CDT 10/18/2023 6:34 PM CDT us Willis Garcia MD BODY FLUIDS AND STOOLS ALPHONSE GIL Final Result [facility] [address] [place] [address], [place] documented in this encounter Visit Diagnoses Diagnosis Other forms of stomatitis documented in this encounter Additional Health Concerns Assessment Noted Time A fall risk assessment has been complete d for the patient 02/23/2015 9:00 AM QUALITY CONTROL DIRECTOR A Body Mass Index follow-up plan has been documented for the patient 12/03/2021 10:17 AM CDT documented as of this encounter Care Teams Asic Verification Engineer Relationship Specialty Start Date End Date Angel Moyer MD PCP - General 12/11/14 documented as of this encounter
[2024-06-10] MEDS: KETOROLAC 15 MG/ML VIAL (*BKC) IV PUSH (22:24)
--- NOTE | 2024-06-10 22:32 | ED_ITS ---
HPI - General Adult General Chief complaint: Chest Pain Stated complaint: CP Time Seen by Provider: 06/10/24 20:35 History of Present Illness HPI narrative: Patient 33-year-old female who presents emergency department chief complaint of midsternal chest pain. Patient reports he has been having pain since Wednesday reports that she recently had a seizure and a fall patient states that she has pain in her chest wall and sternal area that is sharp and reports worse with movement and worse with inspiration. Related Data Allergies Allergy/AdvReac Type Severity Reaction Status Date / Time amoxicillin (From Augmentin) Allergy Unknown Unknown Verified 06/10/24 20:41 clavulanic acid (From Allergy Unknown Unknown Verified 06/10/24 20:41 Augmentin) clindamycin Allergy Unknown unknown Verified 06/10/24 20:41 sulfamethoxazole (From Allergy Unknown Unknown Verified 06/10/24 20:41 Bactrim) trimethoprim (From Bactrim) Allergy Unknown Unknown Verified 06/10/24 20:41 Review of Systems 2 Review of Systems: A 10 system review of systems was completed on the patient and is negative except for what is stated in the HPI. Nursing and ancillary documentation was reviewed. Exam 2 Narrative: GENERAL: Well-appearing, well-nourished, and in no acute distress. HEAD: Normocephalic, atraumatic. EYES: PERRLA and EOMI. ENT: Nares clear, no rhinorrhea or epistaxis. Mucous membranes moist. NECK: Supple. CHEST: Clear to auscultation. No respiratory distress. Chest wall is tender to touch HEART: Regular rate and rhythm. No murmur heard. Normal peripheral pulses. ABDOMEN: Soft, nontender, nondistended, normal active bowel sounds. EXTREMITIES: Normal range of motion. No edema. SKIN: Warm, dry, no rash. NEURO: No focal deficits. Alert and oriented x3. PSYCH: Normal mood and affect. Course Vital Signs Vital signs: Vital Signs Temperature 36.6 C 06/10/24 20:20 Pulse Rate 132 H 06/10/24 20:20 Respiratory Rate 20 06/10/24 20:20 Blood Pressure 150/117 H 06/10/24 20:20 Pulse Oximetry 98 06/10/24 20:20 Temperature 36.6 C 06/10/24 20:20 Pulse Rate 135 H 06/10/24 20:24 Respiratory Rate 20 06/10/24 20:20 Blood Pressure 150/117 H 06/10/24 20:20 Pulse Oximetry 98 06/10/24 20:20 Medical Decision Making MDM Narrative Medical decision making narrative: Virtual diagnosis includes chest wall pain, rib fracture, pulmonary embolism, ACS EKG showed sinus tachycardia without evidence of acute ST elevations or ST depressions. Initial troponin was negative repeat troponin was negative CTA chest showed no evidence of pulmonary embolism no evidence of rib fractures Patient was treated with ketorolac after she had negative troponins and negative pulmonary embolism scan. Patient is having some improvement with the Toradol Vital Signs Vital Signs: Vital Signs Temperature 36.6 C 06/10/24 20:20 Pulse Rate 132 H 06/10/24 20:20 Respiratory Rate 20 06/10/24 20:20 Blood Pressure 150/117 H 06/10/24 20:20 Pulse Oximetry 98 06/10/24 20:20 Temperature 36.6 C 06/10/24 20:20 Pulse Rate 135 H 06/10/24 20:24 Respiratory Rate 20 06/10/24 20:20 Blood Pressure 150/117 H 06/10/24 20:20 Pulse Oximetry 98 06/10/24 20:20 Lab Data 06/10/24 20:29 06/10/24 20:29 Labs: Lab Results 06/10/24 06/10/24 Range/Units 20:29 23:34 WBC 6.9 (4.5-10.0) K/mm3 RBC 4.52 (4.2-5.4) M/mm3 Hgb 14.8 (12.0-15.0) g/dL Hct 43.0 (37.0-47.0) % MCV 95.1 (80-100) fl MCH 32.7 (26-34) pg MCHC 34.4 (32-36) g/dl RDW 12.9 (11.5-14.5) % Plt Count 267 (150-375) k/mm3 MPV 9.5 (7.4-10.4) fl Immature Gran % (Auto) 0.7 H (0-0.5) % Neut % (Auto) 45.7 (45.5-73.1) % Lymph % (Auto) 42.6 (18.3-44.2) % [place] % (Auto) 8.9 H (2.6-8.5) % Eos % (Auto) 1.2 (0-4.4) % Baso % (Auto) 0.9 (0.2-1.2) % Lymph # (Auto) 2.93 (0.9-3.2) K/mm3 [place] # (Auto) 0.6 (0.1-0.6) K/mm3 Eos # (Auto) 0.1 (0-0.3) K/mm3 Baso # (Auto) 0.1 (0.0-0.1) K/mm3 Abs Immat Gran (auto) 0.05 H (0.00-0.031) K/mm3 Absolute Neuts (auto) 3.2 (1.3-6.7) K/mm3 Absolute Nucleated RBC 0.000 (0.0-0.012) K/mm3 Nucleated RBC % 0.0 (0.0-0.2) % PT 14.5 (11.1-14.7) Seconds INR 1.1 APTT 27.9 (22.3-36.8) Seconds Sodium 145 (137-145) mmol/L Potassium 3.9 (3.4-5.0) mmol/L Chloride 109 H (98-107) mmol/L Carbon Dioxide 21 L (22-30) mmol/L Anion Gap 15 H (4-12) mmol/L BUN 17 (7-17) mg/dL Creatinine 0.72 (0.7-1.0) mg/dL Estim Creat Clear Calc Not Reportable Estimated GFR > 60 (59 - ) Glucose 106 (65-110) mg/dL Calcium 8.3 L (8.4-10.2) mg/dL Total Bilirubin 0.5 (0.2-1.3) mg/dL AST 55 H (14-36) U/L ALT 26 (6-35) U/L Alkaline Phosphatase 59 (38-126) U/L Troponin I < 0.012 < 0.012 (0.000-0.034) ng/mL Total Protein 8.0 (6.3-8.2) g/dL Albumin 4.8 (3.5-5.1) g/dL Lipase 102 (23-300) U/L Discharge Plan Discharge Clinical Impression: Costalchondritis, Acute chest wall pain Patient Disposition: Home Condition: Stable Instructions: Antibiotic Form, Costochondritis (ED), Chest Wall Pain (ED) Patient Language: Danish Prescriptions: New diclofenac potassium 50 mg tablet 50 mg PO TID PRN (Reason: pain) Qty: 30 0RF Follow-up/Referrals: PHYSICIAN NOT ON STAFF,NONSTAFF [Primary Care Provider] - Time of Disposition: 00:13
[2024-06-11 00:01] VITALS: BP 132/86; PULSE 108; RESP 19; O2SAT 99
[2024-06-11 00:04] LABS: Troponin I < 0.012 ng/mL (0.000-0.034)
[2024-06-11 00:13] VITALS: O2SAT 99
[2024-06-11 00:15] VITALS: O2SAT 98
[2024-06-11 00:16] VITALS: BP 134/96; O2SAT 98
[2024-06-11 00:33] VITALS: BP 134/96; PULSE 96; RESP 16; TEMP 36.5; O2SAT 99
--- NOTE | 2024-06-11 02:29 | ECG_ITS ---
Test Date: 2024-06-11 00:09:30 Measurements Intervals [place] Rate: 92 P: 70 MD: 126 QRS: 57 QRSD: 87 T: 1 QT: 354 QTc: 440 Interpretive Statements SINUS RHYTHM BORDERLINE ST-T WAVE ABNORMALITY- ANT/INF LEADS BASELINE ARTIFACT- I, III, AVL BORDERLINE ECG Compared to ECG 06/10/2024 20:26:02 SCHMITZ RATE HAS DECREASED Electronically Signed On 06-11-2024 07:33:13 CDT by Bharat Mckay D.O.
== END 2024-06-11 00:34 | disposition home or self-care (01) ==
PROVIDERS: Emergency Provider Emergency Medicine
DX: M94.0 Chondrocostal junction syndrome [Tietze] (principal); R94.31 Abnormal electrocardiogram [ECG] [EKG]; R00.0 Tachycardia, unspecified
CPT/HCPCS: 36415; 71046; 71275; 80053; 83690; 84484; 85025; 85610; 85730; 93005; 96374; 96375; 99284; A9270; J1885; J2270; Q9967